=== PATIENT | female | born 1930 | race Caucasian/White ===

== ENCOUNTER 2020-01-15 22:04 | Inpatient (IN) ==
--- OUTSIDE RECORDS SUMMARY | 2020-01-15 22:06 | External Medical Summary | Continuity of Care Document ---
:1930 Author Name Evelin Cortes, Provider Address Unavailable Unavailable , Care Team Providers Name Role Phone NonMNPG Sophia, Provider Unavailable [email or web address] Unavailable Unavailable Unavailable Unavailable Problems Active medical history not documented Allergies and Adverse Reactions Allergy history not documented Medications Medications not documented Procedures Procedures not documented Immunizations Immunizations not documented Plan of Treatment Planned Observations Planned Goals not documented Results No Known Results Results not documented
[2020-01-15] MEDS ORDERED: SODIUM CHLORIDE 0.9% 500 ML IV ONE (22:21)
--- NOTE | 2020-01-15 22:52 | XRay Report ---
XR chest 1V portable CLINICAL HISTORY: Sepsis. COMPARISON STUDY: No previous studies for comparison. FINDINGS: Patient is mildly rotated. Lung volumes are normal. Lungs are clear. There is no pneumothor ax or pleural effusion. Moderate cardiomegaly is noted. Mediastinal contours are normal. There is no evidence for pulmonary edema. IMPRESSION: 1. No acute cardiopulmonary findings. 2. Moderate cardiomegaly. ACT 112: Negative or not required by law. Electronically signed by: Josse Plummer M.D. 01/15/2020 10:51 PM
--- NOTE | 2020-01-15 23:03 | Emergency Department Note ---
History of Present Illness General Chief complaint: Altered Mental Status Time Seen by Provider: 01/15/20 22:15 Source: patient, RN notes reviewed and old records reviewed Mode of arrival: EMS Limitations: altered mental status History of Present Illness This patient comes in with an altered mental status. According to the [facility] transfer note, she has had change in mental mental status with increasing confusion and drop in the blood pressure. I am not sure what her baseline is. She is sleepy but does follow commands and says a word or 2. Apparently she has not slept for 2 days and has been paranoid that somebody to come take her away she denies any complaints. There is no been no reported fall or trauma or any COVID risk factors. No fever or chills or cough or chest pain or shortness of breath. Home Medications Home Medications Medication Instructions Recorded Confirmed Type Antacid 500 Mg Tab 500 mg PO QID PRN 01/15/20 01/15/20 History acetaminophen [Tylenol] 650 mg PO Q4 PRN 01/15/20 01/15/20 History amlodipine [Norvasc] 5 mg PO DAILY 01/15/20 01/15/20 History aspirin 81 mg PO DAILY 01/15/20 01/15/20 History atorvastatin 20 mg PO HS 01/15/20 01/15/20 History calcium carbonate [Tums] 400 mg PO Q6 PRN 01/15/20 01/15/20 History clonidine HCl [Catapres] 0.3 mg PO AMPM 01/15/20 01/15/20 History clopidogrel [Plavix] 75 mg PO DAILY 01/15/20 01/15/20 History diclofenac sodium 2 g TOPICAL QID 01/15/20 01/15/20 History donepezil 5 mg PO HS 01/15/20 01/15/20 History famotidine 20 mg PO DAILY 01/15/20 01/15/20 History ferrous sulfate 325 mg PO DAILY 01/15/20 01/15/20 History furosemide [Lasix] 40 mg PO DAILY 01/15/20 01/15/20 History isosorbide mononitrate 30 mg PO DAILY 01/15/20 01/15/20 History levothyroxine 75 mcg PO DAILY 01/15/20 01/15/20 History lisinopril 20 mg PO AMHS 01/15/20 01/15/20 History magnesium oxide 400 mg PO DAILY 01/15/20 01/15/20 History metolazone 2.5 mg PO WK 01/15/20 01/15/20 History metoprolol tartrate 25 mg PO HS 01/15/20 01/15/20 History metoprolol tartrate 50 mg PO QAM 01/15/20 01/15/20 History ondansetron HCl [Zofran] 4 mg PO Q6H PRN 01/15/20 01/15/20 History sennosides-docusate sodium 1 tab-cap PO BID 01/15/20 01/15/20 History [Senna-S] spironolactone 25 mg PO DAILY 01/15/20 01/15/20 History Allergies Allergy/AdvReac Type Severity Reaction Status Date / Time tramadol Allergy Unknown Verified 01/15/20 23:06 Past Med/Surg History Social History Feels Safe at Home: Yes Smoking Status: Unknown if ever smoked Immunizations: Reviewing the [facility] notes. 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 The patient is unable to give any further history Review of Systems Unobtainable due to cognitive status Physical Exam Vital Signs Vital Signs - 24 hr 01/15/20 22:22 01/15/20 22:31 01/15/20 23:00 Temperature 36.5 C Temperature Source Oral Pulse Rate 66 59 L Pulse Rate [Apical] 61 Pulse Rate from SpO2 Sensor 59 L Respiratory Rate 18 17 Blood Pressure 126/48 L 124/62 Blood Pressure [Right Arm] 124/62 Blood Pressure Mean 74 85 Blood Pressure Mean [Right Arm] 82 Pulse Oximetry 97 97 96 Oxygen Delivery Method Room Air Room Air Room Air Sepsis Recent Fever Within 48 Hours No Sepsis Action Taken by Nursing No Action Required 01/15/20 23:30 Temperature Temperature Source Pulse Rate 62 Pulse Rate [Apical] Pulse Rate from SpO2 Sensor Respiratory Rate 13 Blood Pressure 126/50 L Blood Pressure [Right Arm] Blood Pressure Mean 62 Blood Pressure Mean [Right Arm] Pulse Oximetry 99 Oxygen Delivery Method Room Air Sepsis Recent Fever Within 48 Hours Sepsis Action Taken by Nursing General: Well developed well nourished older female who appears in no acute distress, breathing comfortably on room air. Normal speech. She does say her name but does not know the date or where she is. She follows most commands but is minimally verbal. Speech is nonslurred HEENT: Normal cephalic atraumatic. Pupils are equal round and reactive to light. Extraocular movements are intact. Oropharynx is pink with moist mucous membranes. No swelling of the mouth lips or tongue. Neck: Supple with a midline trachea. No meningeal signs or stiffness, no JVD or bruits. No Stridor. Chest: Clear to auscultation bilaterally. No wheezes or rhonchi. No increased work of breathing. Heart: Regular rate and rhythm without murmurs or gallops. Abdomen: Soft nontender, nondistended without rebound guarding or rigidity. Extremities: No cyanosis clubbing or edema. No calf tenderness or assymetry Spine/Back. Non tender to palpation. No CVA tenderness Skin: Good turgor without rashes. Neurologic exam: Cranial nerves two through 12 are intact. Motor and sensation are intact and symmetrical throughout. Course Administered Medications Discontinued Medications Sodium Chloride (Nss) 500 mls @ 999 mls/hr IV .Q31M ONE Stop: 01/15/20 22:51 Last Infusion: 01/15/20 23:36 Dose: 0 mls/hr Documented by: [id number] Admin: 01/15/20 22:55 Dose: 999 mls/hr Documented by: [id number] Medical Decision Making Differential Diagnosis Differential diagnosis includes: Sepsis, intracranial process, stroke, electrolyte or metabolic abnormality, UTI, medication side effect, trauma, electrolyte or metabolic abnormality Medical Records Attestation: I reviewed the patient's medical records. Home Medications Current Medication List: was personally reviewed by me Laboratory Data Attestation: I reviewed the patient's lab results. Result diagrams: 01/15/20 22:57 01/15/20 22:57 Lab Results 01/15/20 01/15/20 01/15/20 Range/Units 00:16 22:57 22:57 WBC 10.92 H (4.8-10.8) K/uL RBC 3.14 L (4.2-5.4) M/uL Hgb 9.7 L (12.0-16.0) g/dL Hct 27.9 L (37-47) % MCV 88.9 (80-100) fL MCH 30.9 (25-34) pg MCHC 34.8 (32-36) g/dL RDW Std Deviation 40.8 (36.4-46.3) fL RDW Coeff of Alhaji 12.6 (11.5-14.5) % Plt Count 290 (130-400) K/uL MPV 9.3 (7.4-10.4) fL Immature Gran % (Auto) 0.4 % Neut % (Auto) 78.1 % Lymph % (Auto) 14.1 % Stephenson % (Auto) 5.7 % Eos % (Auto) 1.5 % Baso % (Auto) 0.2 % Reticulocyte % (Auto) 1.0 (0.5-2.0) % Immature Gran # (Auto) 0.04 H (0.00-0.02) K/uL Neut # (Auto) 8.54 H (1.4-6.5) K/uL Lymph # (Auto) 1.54 (1.2-3.4) K/uL Stephenson # (Auto) 0.62 H (0.11-0.59) K/uL Eos # (Auto) 0.16 (0-0.5) K/uL Baso # (Auto) 0.02 (0-0.2) K/uL Reticulocyte # 0.03 (0.02-0.10) 10^6/uL PT 10.5 (9.0-12.0) Seconds INR 1.0 (0.9-1.1) APTT 29.1 (21.0-31.0) Seconds PTT Ratio 1.0 Sodium (136-145) mmol/L Potassium (3.5-5.1) mmol/L Chloride (98-107) mmol/L Carbon Dioxide (21-32) mmol/L Anion Gap (3-11) BUN (7-18) mg/dl Creatinine (0.6-1.2) mg/dl Est Cr Clr Drug Dosing ml/min Est GFR ( Amer) Est GFR (Non-Af Amer) BUN/Creatinine Ratio (10-20) Glucose (70-99) mg/dl Lactate (0.4-2.0) mmol/L Calcium (8.5-10.1) mg/dl Magnesium (1.8-2.4) mg/dl Total Bilirubin (0.2-1) mg/dl AST (15-37) U/L ALT (12-78) U/L Alkaline Phosphatase (45-117) U/L Troponin I (0-0.045) ng/ml Total Protein (6.4-8.2) gm/dl Albumin (3.4-5.0) gm/dl Globulin (2.5-4.0) gm/dl Albumin/Globulin Ratio (0.9-2) Urine Color Urine Appearance (Clear) Urine pH (4.5-7.5) Ur Specific [place] (1.000-1.030) Urine Protein (Negative) Urine Glucose (UA) (Negative) Urine Ketones (Negative) Urine Blood (Negative) Urine Nitrite (Negative) Urine Bilirubin (Negative) Urine Urobilinogen (Negative) Ur Leukocyte Esterase (Negative) Urine WBC (Auto) (0-5) /hpf Urine RBC (Auto) (0-4) /hpf U Hyaline Cast (Auto) (0-5) /lpf U Epithel Cells (Auto) (0-5) /lpf Urine Bacteria (Auto) (Negative) Calcium Oxalate Crystal (None Prsent) Granular Casts (0) /lpf Urine Mucus (None Prsent) Urine Yeast 01/15/20 01/15/20 01/15/20 Range/Units 22:57 22:57 23:38 WBC (4.8-10.8) K/uL RBC (4.2-5.4) M/uL Hgb (12.0-16.0) g/dL Hct (37-47) % MCV (80-100) fL MCH (25-34) pg MCHC (32-36) g/dL RDW Std Deviation (36.4-46.3) fL RDW Coeff of Alhaji (11.5-14.5) % Plt Count (130-400) K/uL MPV (7.4-10.4) fL Immature Gran % (Auto) % Neut % (Auto) % Lymph % (Auto) % Stephenson % (Auto) % Eos % (Auto) % Baso % (Auto) % Reticulocyte % (Auto) (0.5-2.0) % Immature Gran # (Auto) (0.00-0.02) K/uL Neut # (Auto) (1.4-6.5) K/uL Lymph # (Auto) (1.2-3.4) K/uL Stephenson # (Auto) (0.11-0.59) K/uL Eos # (Auto) (0-0.5) K/uL Baso # (Auto) (0-0.2) K/uL Reticulocyte # (0.02-0.10) 10^6/uL PT (9.0-12.0) Seconds INR (0.9-1.1) APTT (21.0-31.0) Seconds PTT Ratio Sodium 132 L (136-145) mmol/L Potassium 4.5 (3.5-5.1) mmol/L Chloride 97 L (98-107) mmol/L Carbon Dioxide 26 (21-32) mmol/L Anion Gap 9.0 (3-11) BUN 101 H (7-18) mg/dl Creatinine 4.42 H (0.6-1.2) mg/dl Est Cr Clr Drug Dosing 7.4 ml/min Est GFR ( Amer) 9.7 Est GFR (Non-Af Amer) 8.4 BUN/Creatinine Ratio 22.8 H (10-20) Glucose 112 H (70-99) mg/dl Lactate 1.4 (0.4-2.0) mmol/L Calcium 8.8 (8.5-10.1) mg/dl Magnesium 3.2 H (1.8-2.4) mg/dl Total Bilirubin 0.4 (0.2-1) mg/dl AST 19 (15-37) U/L ALT 15 (12-78) U/L Alkaline Phosphatase 68 (45-117) U/L Troponin I 0.138 H* (0-0.045) ng/ml Total Protein 7.0 (6.4-8.2) gm/dl Albumin 3.5 (3.4-5.0) gm/dl Globulin 3.5 (2.5-4.0) gm/dl Albumin/Globulin Ratio 1.0 (0.9-2) Urine Color Dark Yellow Urine Appearance Cloudy A (Clear) Urine pH 5.0 (4.5-7.5) Ur Specific [place] 1.018 (1.000-1.030) Urine Protein Trace H (Negative) Urine Glucose (UA) Negative (Negative) Urine Ketones Trace H (Negative) Urine Blood Negative (Negative) Urine Nitrite Negative (Negative) Urine Bilirubin Negative (Negative) Urine Urobilinogen Negative (Negative) Ur Leukocyte Esterase 1+ H (Negative) Urine WBC (Auto) 5-10 H (0-5) /hpf Urine RBC (Auto) 0-4 (0-4) /hpf U Hyaline Cast (Auto) 10-30 H (0-5) /lpf U Epithel Cells (Auto) >30 H (0-5) /lpf Urine Bacteria (Auto) 1+ H (Negative) Calcium Oxalate Crystal Present A (None Prsent) Granular Casts 5-10 H (0) /lpf Urine Mucus Present A (None Prsent) Urine Yeast Not Reportable Imaging Data Attestation: I personally reviewed and interpreted this imaging study as follows: My Impression: Chest x-ray: No acute infiltrate, failure, pneumothorax seen Radiologist's Impression: CT of the head. No acute changes. Please refer to report ECG Data Attestation: I personally reviewed and interpreted this ECG as follows: Indication: + altered mental status Rate (beats per minute): 63 Rhythm: + normal sinus ECG Intervals/blocks: + Left bundle branch block and + Normal VA ECG [place]: + Left axis deviation ECG ST segments: + Nonspecific ST abnormalities ECG Findings: no PACs and no PVCs Comparison ECG Date: no prior available Blood Pressure Blood Pressure Findings: Normal blood pressure MDM Narrative This patient comes in as described above. She was placed on a playground monitor in room B4. She is here for treatment and evaluation of altered mental status/confusion. It is unclear what her baseline is. She has stable vital signs. IV access was established and a full sepsis work-up was done. Also did a CAT scan of her head urinalysis and culture EKG. Her EKG did shows normal sinus rhythm with a bundle branch block and there is no old one available for comparison. CAT scan of her head was unremarkable. EKG shows a left bundle branch block with no old EKG available for comparison. No definite ischemic changes. Troponin is mildly elevated 0.138. Patient denies any chest pain or shortness of breath and seems comfortable. She has no significant electrolyte or metabolic abnormality. Chest x-ray does not show any congestive heart failure pneumonia or pneumothorax. She has no elevation of lactic acid to sug gest sepsis. Her white count is mildly elevated. She is on multiple medications and this could be related to medication as well. Her urinalysis does not suggest a definite UTI but a culture is pending. I did attempt to call her daughter Lakshmi Day at [phone] but there is no answer. I did consult Dr. Rivas to see her in the ER for further treatment and evaluation. Continous cardiac monitoring: An order was placed for continuous cardiac monitoring due to the patient's altered mental status. She was noted to be in a normal sinus rhythm at 66, improved to rotation. She was kept on a playground monitor while she was here. Impression & Plan Altered mental status, Elevated troponin, Left bundle branch block (LBBB), Weakness Discharge Plan Visit Data Chief Complaint: Altered Mental Status ED Provider: Venkat Lewis Discharge Problem: Altered mental status, Elevated troponin, Left bundle branch block (LBBB), Weakness Forms Stand Alone Forms: [facility] Prescriptions Prescriptions: No Action Antacid 500 Mg Tab 500 mg PO QID PRN (Reason: Acid Reflux) RF: 0 furosemide [Lasix] 40 mg Tablet 40 mg PO DAILY RF: 0 metolazone 2.5 mg tablet 2.5 mg PO WK RF: 0 acetaminophen [Tylenol] 325 mg Tablet 650 mg PO Q4 PRN (Reason: Fever Or Pain) RF: 0 atorvastatin 20 mg Tablet 20 mg PO HS RF: 0 donepezil 5 mg Tablet 5 mg PO HS RF: 0 lisinopril 20 mg tablet 20 mg PO AMHS RF: 0 ondansetron HCl [Zofran] 4 mg Tablet 4 mg PO Q6H PRN (Reason: Nausea) RF: 0 isosorbide mononitrate 30 mg tablet extended release 24 hr 30 mg PO DAILY RF: 0 sennosides-docusate sodium [Senna-S] 8.6-50 mg Tablet 1 tab-cap PO BID RF: 0 clonidine HCl [Catapres] 0.3 mg tablet 0.3 mg PO AMPM RF: 0 clopidogrel [Plavix] 75 mg tablet 75 mg PO DAILY RF: 0 amlodipine [Norvasc] 5 mg tablet 5 mg PO DAILY RF: 0 spironolactone 25 mg Tablet 25 mg PO DAILY RF: 0 levothyroxine 75 mcg tablet 75 mcg PO DAILY RF: 0 famotidine 20 mg Tablet 20 mg PO DAILY RF: 0 calcium carbonate [Tums] 200 mg calcium (500 mg) Tablet,Chewable 400 mg PO Q6 PRN (Reason: Heartburn) RF: 0 metoprolol tartrate 50 mg tablet 50 mg PO QAM RF: 0 aspirin 81 mg tablet,chewable 81 mg PO DAILY RF: 0 ferrous sulfate 325 mg (65 mg iron) tablet,delayed release (DR/EC) 325 mg PO DAILY RF: 0 metoprolol tartrate 25 mg tablet 25 mg PO HS RF: 0 diclofenac sodium 1 % gel 2 g TOPICAL QID RF: 0 magnesium oxide 400 mg magnesium Tablet 400 mg PO DAILY RF: 0 Discharge Problem: Altered mental status Qualifiers: Altered mental status type: unspecified Qualified Code(s): R41.82 - Altered mental status, unspecified
[2020-01-15 23:13] LABS: Basophils # (auto) 0.02 K/uL (0-0.2); Basophils % (auto) 0.2 %; Eosinophils # (auto) 0.16 K/uL (0-0.5); Eosinophils % (auto) 1.5 %; Hematocrit (blood only) 27.9 % (37-47); Hemoglobin 9.7 g/dL (12.0-16.0); Immature Granulocytes # (auto) 0.04 K/uL (0.00-0.02); Immature Granulocytes % (auto) 0.4 %; Lymphocytes # (auto) 1.54 K/uL (1.2-3.4); Lymphocytes % (auto) 14.1 %; Mean Corpuscular Hemoglobin 30.9 pg (25-34); Mean Corpuscular Hgb Conc 34.8 g/dL (32-36); Mean Corpuscular Volume 88.9 fL (80-100); Mean Platelet Volume 9.3 fL (7.4-10.4); Monocytes # (auto) 0.62 K/uL (0.11-0.59); Monocytes % (auto) 5.7 %; Neutrophils # (auto) 8.54 K/uL (1.4-6.5); Neutrophils % (auto) 78.1 %; Platelet Count 290 K/uL (130-400); RDW Coefficient of Variation 12.6 % (11.5-14.5); RDW Standard Deviation 40.8 fL (36.4-46.3); Red Blood Count 3.14 M/uL (4.2-5.4); White Blood Count 10.92 K/uL (4.8-10.8)
[2020-01-15 23:21] LABS: Partial Thromboplastin Time 29.1 Seconds (21.0-31.0); Prothrombin Time 10.5 Seconds (9.0-12.0)
[2020-01-15 23:25] LABS: Albumin Level 3.5 gm/dl (3.4-5.0); BUN Creatinine Ratio 22.8 (10-20); Calcium 8.8 mg/dl (8.5-10.1); Creatinine Clr Calc Pharmacy 7.4 ml/min; Est GFR (African American) 9.7; Est GFR (Non-African American) 8.4; Magnesium 3.2 mg/dl (1.8-2.4); Potassium 4.5 mmol/L (3.5-5.1)
[2020-01-15 23:36] LABS: Bilirubin,Total 0.4 mg/dl (0.2-1); Globulin 3.5 gm/dl (2.5-4.0); Troponin I 0.138 ng/ml (0-0.045)
[2020-01-15 23:51] LABS: Appearance Urine Cloudy (Clear); Bilirubin Urine Negative (Negative); Blood Urine Negative (Negative); Color Urine Dark Yellow; Epithelial Cell Urine Auto >30 /lpf (0-5); Glucose Urine UA Negative (Negative); Ketones Urine Trace (Negative); Leukocyte Esterase Urine 1+ (Negative); Nitrite Urine Negative (Negative); Protein Urine Trace (Negative); RBC Urine Automated 0-4 /hpf (0-4); Specific Gravity Urine 1.018 (1.000-1.030); Urobilinogen Urine Negative (Negative)
[2020-01-16 00:14] LABS: Reticulocytes # 0.03 10^6/uL (0.02-0.10)
[2020-01-16 00:16] LABS: Mucus Urine Present (None Prsent)
[2020-01-16 00:18] LABS: Bacteria Urine Automated 1+ (Negative); Calcium Oxalate Crystals Urine Present (None Prsent)
[2020-01-16] MEDS ORDERED: SODIUM CHLORIDE 0.9% 1000ML 1,000 ML IV ONE (00:24)
[2020-01-16 00:51] LABS: BUN Creatinine Ratio 23.1 (10-20); Calcium 8.4 mg/dl (8.5-10.1); Creatinine Clr Calc Pharmacy 7.7 ml/min; Est GFR (African American) 10.1; Est GFR (Non-African American) 8.7; Potassium 4.3 mmol/L (3.5-5.1)
[2020-01-16 01:07] LABS: Folate (Folic Acid) 13.44 ng/ml (>5.38)
[2020-01-16 01:11] LABS: Ferritin 65.1 ng/ml (8-388); Thyroid Stimulating Hormone 0.351 uIu/ml (0.300-4.500); Troponin I 0.137 ng/ml (0-0.045)
[2020-01-16] MEDS ORDERED: CEFEPIME 2,000 MG/20 ML VIAL IV STA (01:13)
--- NOTE | 2020-01-16 01:16 | History & Physical Report ---
Date of Service January 16, 2020 Assessment & Plan (1) Encephalopathy: Delirium on dementia Multifactorial : Complicated UTI, no sepsis for now, rule out obstructive uropathy Possible uremia, ARF on CRI Troponin elevation in the setting of worsening kidney dysfunction chronic diastolic HF as per records, patient on the dry side hx CAD status post stent chronic LBBB history CVA as per records HTN, BP currently stable chronic anemia, current hemoglobin within range of 2 disparate lab results drawn this month hypothyroidism, euthyroid as of today's TSH Hyperglycemia likely prediabetes, hemoglobin A1c of 6.24 December 2019 Medical telemetry Follow urine cultures, IV Cefepime for now CT abdomen pelvis RE complicated UTI, ARF on CRI Monitor creatinine response to IVF, continue to hold home diuretics, ALON inhibitor Nephrology consult, ARF on CKD Anemia work-up DVT prophylaxis. Heparin subcu if no bleed on CT abdomen pelvis DNR as per prior directives as per half-way staff. Attempted to contact patient's daughter/POA (Ms. Kenna Marcum, contact #[phone] 10/30 [id number]) to update her of plan of care. No answer. Left voice message for call back. Text document was generated using [email or web address] voice recognition software. It may contain grammatical or spelling errors. Kindly contact undersigned for clarification of any documentation item in question. History of Present Illness Chief Complaint: Mental status change as per records Primary Care Provider: Dr. Loredo History obtained from patient, ER provider, half-way staff, and records. Limited history from patient secondary to encephalopathy. Medical history significant for chronic diastolic HF as per records, CAD status post stent , chronic LBBB, history CVA as per records, HTN, CRI (baseline creatinine 2.6 as of 12/22/2019), chronic anemia (baseline hemoglobin 8-11 12/2019), dementia, hypothyroidism, hx parotid tumor Patient noted to have change in mentation over the last few days. Report of visual hallucinations that "someone was out to get her." Outpatient chemistry from 01/13 showed serum sodium 131, serum creatinine noted to be 3.5. No UTI on outpatient urine dipstick as per records. Diuretics, ALON inhibitor, spironolactone held . No dialysis as per discussion between half-way provider and patient's family. Last night patient noted to have decreased responsiveness, not talking as much with SBP 80s. Patient brought to the ER by EMS for evaluation. Patient unable to answer questions regarding chest pain, cough, S OB, abdominal pain, dysuria symptoms. Medical History as above Surgical History : Appendectomy, cholecystectomy, Family History : Could not be obtained Personal/Social history : [facility] resident Allergies Allergy/AdvReac Type Severity Reaction Status Date / Time tramadol Allergy Unknown Verified 01/15/20 23:06 Home Medications Home Medications Medication Instructions Recorded Confirmed Type Antacid 500 Mg Tab 500 mg PO QID PRN 01/15/20 01/15/20 History acetaminophen [Tylenol] 650 mg PO Q4 PRN 01/15/20 01/15/20 History amlodipine [Norvasc] 5 mg PO DAILY 01/15/20 01/15/20 History aspirin 81 mg PO DAILY 01/15/20 01/15/20 History atorvastatin 20 mg PO HS 01/15/20 01/15/20 History calcium carbonate [Tums] 400 mg PO Q6 PRN 01/15/20 01/15/20 History clonidine HCl [Catapres] 0.3 mg PO AMPM 01/15/20 01/15/20 History clopidogrel [Plavix] 75 mg PO DAILY 01/15/20 01/15/20 History diclofenac sodium 2 g TOPICAL QID 01/15/20 01/15/20 History donepezil 5 mg PO HS 01/15/20 01/15/20 History famotidine 20 mg PO DAILY 01/15/20 01/15/20 History ferrous sulfate 325 mg PO DAILY 01/15/20 01/15/20 History furosemide [Lasix] 40 mg PO DAILY 01/15/20 01/15/20 History isosorbide mononitrate 30 mg PO DAILY 01/15/20 01/15/20 History levothyroxine 75 mcg PO DAILY 01/15/20 01/15/20 History lisinopril 20 mg PO AMHS 01/15/20 01/15/20 History magnesium oxide 400 mg PO DAILY 01/15/20 01/15/20 History metolazone 2.5 mg PO WK 01/15/20 01/15/20 History metoprolol tartrate 25 mg PO HS 01/15/20 01/15/20 History metoprolol tartrate 50 mg PO QAM 01/15/20 01/15/20 History ondansetron HCl [Zofran] 4 mg PO Q6H PRN 01/15/20 01/15/20 History sennosides-docusate sodium 1 tab-cap PO BID 01/15/20 01/15/20 History [Senna-S] spironolactone 25 mg PO DAILY 01/15/20 01/15/20 History Past Med/Surg History Social History Feels Safe at Home: Yes Smoking Status: Unknown if ever smoked Review of Systems Review of Systems: As per HPI, all 10 systems reviewed, all other ROS negative Physical Exam Physical Exam: GENERAL: Lethargic, no respiratory distress SKIN: Pallor , warm HEENT: pale palpebral conjunctivae, no ptosis, dry buccal mucosa NECK : Supple, no tenderness CHEST : Decreased breath sounds, no tenderness HEART : Bradycardic, no obvious murmurs ABDOMEN: Some distention, nontender EXTREMITIES : Minimal LE swelling, no LE tenderness, no other conspicuous deformities noted NEUROLOGIC : Lethargic, no facial asymmetry, gait and stance not assessed Results & Data Results & Data ([facility]) Vital Signs (Past 12 Hours) Vital Signs Temp Pulse Pulse Resp BP BP Pulse Ox 01/15/20 23:30 62 13 126/50 L 99 01/15/20 23:00 59 L 61 17 124/62 124/62 96 01/15/20 22:31 97 01/15/20 22:22 36.5 C 66 18 126/48 L 97 Laboratory Results Laboratory Results WBC 10.92 K/uL (4.8-10.8) H 01/15/20 22:57 RBC 3.14 M/uL (4.2-5.4) L 01/15/20 22:57 Hgb 9.7 g/dL (12.0-16.0) L 01/15/20 22:57 Hct 27.9 % (37-47) L 01/15/20 22:57 MCV 88.9 fL (80-100) 01/15/20 22:57 MCH 30.9 pg (25-34) 01/15/20 22:57 MCHC 34.8 g/dL (32-36) 01/15/20 22:57 RDW Std Deviation 40.8 fL (36.4-46.3) 01/15/20 22:57 RDW Coeff of Alhaji 12.6 % (11.5-14.5) 01/15/20 22:57 Plt Count 290 K/uL (130-400) 01/15/20 22:57 MPV 9.3 fL (7.4-10.4) 01/15/20 22:57 Immature Gran % (Auto) 0.4 % 01/15/20 22:57 Neut % (Auto) 78.1 % 01/15/20 22:57 Lymph % (Auto) 14.1 % 01/15/20 22:57 [place] % (Auto) 5.7 % 01/15/20:57 Eos % (Auto) 1.5 % 01/15/20:57 Baso % (Auto) 0.2 % 01/15/20: Reticulocyte % (Auto) 1.0 % (0.5-2.0) 01/15/20 00:16 Immature Gran # (Auto) 0.04 K/uL (0.00-0.02) H 01/15/20 22:57 Neut # (Auto) 8.54 K/uL (1.4-6.5) H 01/15/20 22:57 Lymph # (Auto) 1.54 K/uL (1.2-3.4) 01/15/20 22:57 [place] # (Auto) 0.62 K/uL (0.11-0.59) H 01/15/20 22:57 Eos # (Auto) 0.16 K/uL (0-0.5) 01/15/20:57 Baso # (Auto) 0.02 K/uL (0-0.2) 01/15/20:57 Reticulocyte # 0.03 10^6/uL (0.02-0.10) 01/15/20 00:16 PT 10.5 Seconds (9.0-12.0) 01/15/20 22:57 INR 1.0 (0.9-1.1) 01/15/20 22:57 APTT 29.1 Seconds (21.0-31.0) 01/15/20 22:57 PTT Ratio 1.0 01/15/20:57 Sodium 133 mmol/L (136-145) L 01/16/20 00:16 Potassium 4.3 mmol/L (3.5-5.1) 01/16/20 00:16 Chloride 99 mmol/L (98-107) 01/16/20 00:16 Carbon Dioxide 25 mmol/L (21-32) 01/16/20 00:16 Anion Gap 9.0 (3-11) 01/16/20 00:16 BUN 99 mg/dl (7-18) H 01/16/20 00:16 Creatinine 4.28 mg/dl (0.6-1.2) H 01/16/20 00:16 Est Cr Clr Drug Dosing 7.7 ml/min 01/16/20 00:16 Est GFR ( Amer) 10.1 01/16/20 00:16 Est GFR (Non-Af Amer) 8.7 01/16/20 00:16 BUN/Creatinine Ratio 23.1 (10-20) H 01/16/20 00:16 Glucose 123 mg/dl (70-99) H 01/16/20 00:16 Lactate 1.4 mmol/L (0.4-2.0) 01/15/20 22:57 Calcium 8.4 mg/dl (8.5-10.1) L 01/16/20 00:16 Magnesium 3.2 mg/dl (1.8-2.4) H 01/15/20 22:57 Iron 40 mcg/dl (35-150) 01/16/20 00:16 TIBC 252 mcg/dl (250-450) 01/16/20 00:16 Transferrin 215 mg/dl (200-360) 01/16/20 00:16 Ferritin 65.1 ng/ml (8-388) 01/16/20 00:16 Total Bilirubin 0.4 mg/dl (0.2-1) 01/15/20 22:57 AST 19 U/L (15-37) 01/15/20 22:57 ALT 15 U/L (12-78) 01/15/20 22:57 Alkaline Phosphatase 68 U/L (45-117) 01/15/20 22:57 Ammonia < 10.0 umol/L (11-32) L 01/16/20 00:16 Troponin I 0.137 ng/ml (0-0.045) H* 01/16/20 00:16 Total Protein 7.0 gm/dl (6.4-8.2) 01/15/20 22:57 Albumin 3.5 gm/dl (3.4-5.0) 01/15/20 22:57 Globulin 3.5 gm/dl (2.5-4.0) 01/15/20 22:57 Albumin/Globulin Ratio 1.0 (0.9-2) 01/15/20 22:57 Vitamin B12 606 pg/ml (211-911) 01/16/20 00:16 Folate 13.44 ng/ml (>5.38) 01/16/20 00:16 TSH 0.351 uIu/ml (0.300-4.500) 01/16/20 00:16 Urine Color Dark Yellow 01/15/20 23:38 Urine Appearance Cloudy (Clear) A 01/15/20 23:38 Urine pH 5.0 (4.5-7.5) 01/15/20 23:38 Ur Specific [place] 1.018 (1.000-1.030) 01/15/20 23:38 Urine Protein Trace (Negative) H 01/15/20 23:38 Urine Glucose (UA) Negative (Negative) 01/15/20 23:38 Urine Ketones Trace (Negative) H 01/15/20 23:38 Urine Blood Negative (Negative) 01/15/20 23:38 Urine Nitrite Negative (Negative) 01/15/20 23:38 Urine Bilirubin Negative (Negative) 01/15/20 23:38 Urine Urobilinogen Negative (Negative) 01/15/20 23:38 Ur Leukocyte Esterase 1+ (Negative) H 01/15/20 23:38 Urine WBC (Auto) 5-10 /hpf (0-5) H 01/15/20 23:38 Urine RBC (Auto) 0-4 /hpf (0-4) 01/15/20 23:38 U Hyaline Cast (Auto) 10-30 /lpf (0-5) H 01/15/20 23:38 U Epithel Cells (Auto) >30 /lpf (0-5) H 01/15/20 23:38 Urine Bacteria (Auto) 1+ (Negative) H 01/15/20 23:38 Calcium Oxalate Crystal Present (None Prsent) A 01/15/20 23:38 Granular Casts 5-10 /lpf (0) H 04/25/20 23:38 Urine Mucus Present (None Prsent) A 01/15/20 23:38 Urine Yeast Not Reportable 01/15/20 23:[address] head initial read: Involutional and chronic small vessel ischemic changes. No ICH, mass-effect, or edema or skull fracture. Chest x-ray : 1. No acute cardiopulmonary findings. 2. Moderate cardiomegaly. EKG as per my interpretation : Rate 65, NSR, LAD, LAFB, LBBB (chronic)
[2020-01-16] MEDS ORDERED: cefTRIAXone SODIUM 2000MG/70ML D5W IV ONE (01:19)
[2020-01-16] MEDS ORDERED: PROMETHAZINE HCL 12.5 MG in SODIUM CHLORIDE 0.9% 50 ML IV PRN (02:56)
[2020-01-16] MEDS ORDERED: ACETAMINOPHEN 325 MG TAB PO PRN (02:56)
[2020-01-16] MEDS ORDERED: NITROGLYCERIN SL 0.4 MG/TAB TAB SL PRN (02:56)
[2020-01-16] MEDS ORDERED: CEFEPIME CONSULT ACTIVE PRN (03:58)
[2020-01-16] MEDS: HEPARIN SOD 5,000 UNIT/0.5 ML VIAL SQ SCH ×3 (05:53→21:02)
[2020-01-16] MEDS: LEVOTHYROXINE SODIUM 75 MCG TABLET PO SCH (05:54)
--- NOTE | 2020-01-16 05:55 | CT Scan Report ---
CT head/brain wo con CT DOSE: 1074.96 mGy.cm HISTORY: Mental status change eval for altered loc TECHNIQUE: Multiaxial CT images of the head were performed without the use of intravenous contrast. A dose lowering technique was utilized adhering to the principles of ALARA. Comparison: None. Findings: The paranasal sinuses and mastoid air cells are clear. The calvarium and skull base are int act. The ventricles and sulci are within normal limits. There is no mass, hematoma, midline shift, or acute infarct. Impression: No acute intracranial abnormality. Age-related atrophy and chronic small vessel change. ACT 112: Negative or not required by law. The above report was generated using voice recognition software. It may contain grammatical, syntax or spelling errors. Electronically signed by: Kyle Gonzalez M.D. 01/16/2020 5:54 AM
--- NOTE | 2020-01-16 06:14 | CT Scan Report ---
CT abd pelvis wo con CT DOSE: 321.58 mGy.cm HISTORY: abd discomfrt TECHNIQUE: Multiaxial CT images of the abdomen and pelvis were performed without contrast. A dose lo wering technique was utilized adhering to the principles of ALARA. COMPARISON STUDY: None. FINDINGS: Mild bibasilar atelectasis. Moderate cardiomegaly. Liver spleen and pancreas are unremarkab le. Prior cholecystectomy. Bilateral renal cysts. No evidence for renal hydronephrosis. Nonobstructive bowel pattern. Bladder is midline. Moderate degenerative change lumbar spine. IMPRESSION: No acute process in the abdomen or pelvis. Cardiomegaly. Prior cholecystectomy. ACT 112: Negative or not required by law. The above report was generated using voice recognition software. It may contain grammatical, syntax or spelling errors. Electronically signed by: Kyle Gonzalez M.D. 01/16/2020 6:12 AM
[2020-01-16 06:19] LABS: Basophils # (auto) 0.03 K/uL (0-0.2); Basophils % (auto) 0.3 %; Eosinophils # (auto) 0.31 K/uL (0-0.5); Hematocrit (blood only) 25.6 % (37-47); Hemoglobin 8.6 g/dL (12.0-16.0); Immature Granulocytes # (auto) 0.04 K/uL (0.00-0.02); Immature Granulocytes % (auto) 0.4 %; Lymphocytes # (auto) 1.99 K/uL (1.2-3.4); Lymphocytes % (auto) 19.6 %; Mean Corpuscular Hgb Conc 33.6 g/dL (32-36); Mean Corpuscular Volume 89.2 fL (80-100); Mean Platelet Volume 8.6 fL (7.4-10.4); Monocytes # (auto) 0.74 K/uL (0.11-0.59); Monocytes % (auto) 7.3 %; Neutrophils # (auto) 7.06 K/uL (1.4-6.5); Neutrophils % (auto) 69.4 %; Platelet Count 224 K/uL (130-400); RDW Coefficient of Variation 12.6 % (11.5-14.5); RDW Standard Deviation 41.2 fL (36.4-46.3); Red Blood Count 2.87 M/uL (4.2-5.4); White Blood Count 10.17 K/uL (4.8-10.8)
[2020-01-16 06:40] LABS: BUN Creatinine Ratio 25.9 (10-20); Calcium 8.4 mg/dl (8.5-10.1); Creatinine Clr Calc Pharmacy 8.4 ml/min; Est GFR (African American) 11.3; Est GFR (Non-African American) 9.8
[2020-01-16] MEDS: SODIUM CHLORIDE 0.9% 1000ML 1,000 ML IV SCH ×2 (07:48→19:43)
[2020-01-16] MEDS: ISOSORBIDE MONO EXTENDED REL 30 MG TABCR PO SCH (07:50)
[2020-01-16] MEDS: METOPROLOL TARTRATE 50 MG TAB PO SCH ×2 (07:50→21:00)
[2020-01-16] MEDS: FAMOTIDINE 20 MG TAB PO SCH (07:50)
[2020-01-16] MEDS: AMLODIPINE BESYLATE 5 MG TAB PO SCH (07:51)
[2020-01-16] MEDS: CLOPIDOGREL BISULFATE 75 MG TAB PO SCH (07:51)
[2020-01-16] MEDS: FERROUS SULFATE 325 MG TAB PO SCH (07:51)
[2020-01-16] MEDS: ASPIRIN 81 MG ECTAB PO SCH (07:51)
[2020-01-16] MEDS: DOCUSATE SODIUM/SENNA 50/8.6MG TAB PO SCH ×2 (07:51→21:03)
--- NOTE | 2020-01-16 08:30 | Hospitalist Progress Note ---
Date of Service January 16, 2020 Assessment & Plan Admission and Anticipated Discharge Date Admission Date: January 16, 2020 Subjective Patient admitted overnight, examined by me in room 277. She is lying in bed, c stephen, in no acute distress. She is able to tell me her name and that she has a daughter called Lakshmi which is correct. She seems to know that she is in the hospital but she cannot tell me which 1. She denies any fevers, chills, chest pain, shortness of breath, abdominal pain, nausea or vomiting. She is otherwise quite quiet. Lungs are clear to auscultation bilaterally, heart sounds regular, abdomen soft, nontender, nondistended. Nephrology consulted, patient is currently receiving IV fluids, 80 mils per hour, and cefepime for presumable UTI I contacted patient's daughter Lakshmi, and updated her on pt's clinical status. Told her that patient was able to tell me her name and her daughter's name. Lakshmi told me that yesterday her mom was very confused, she did not recognize her daughter and said some strange things about going to correction, also was asking about a friend Dimitrios, who is supposedly since 2005. I encouraged Lakshmi to call her mom on the phone at the bedside, and reassure her about her current environment as it can be confusing for elderly anyhow. Given very limited visitations this can be difficult for elderly patients who are confused even prior to coming to the hospital. Lakshmi understands and plans to keep in touch with her mother. I also confirmed with Lakshmi that they do not wish to proceed with dialysis despite worsening kidney function. She says that they did have a conversation with landfill grader about this and they do not want to proceed with dialysis. Results & Data Results & Data ([facility]) Vital Signs (Past 12 Hours) Vital Signs Temp Pulse Pulse Pulse Resp BP BP 01/16/20 08:00 58 L 01/16/20 07:25 36.7 C 60 20 131/58 L 01/16/20 04:18 36.6 C 56 L 18 131/70 01/16/20 03:00 36.8 C 66 61 20 01/16/20 01:45 57 L 15 115/45 L 01/16/20 01:30 57 L 13 98/42 L 01/16/20 01:15 55 L 16 122/42 L 01/16/20 00:45 56 L 14 110/40 L 01/16/20 00:30 58 L 15 124/44 L 01/15/20 23:45 57 L 15 109/40 L 01/15/20 23:30 62 13 126/50 L 01/15/20 23:00 59 L 61 17 124/62 01/15/20 22:31 01/15/20 22:22 36.5 C 66 18 126/48 L BP Pulse Ox 01/16/20 08:00 01/16/20 07:25 96 01/16/20 04:18 100 01/16/20 03:00 147/65 H 100 01/16/20 01:45 01/16/20 01:30 01/16/20 01:15 98 01/16/20 00:45 99 01/16/20 00:30 99 01/15/20 23:45 98 01/15/20 23:30 99 01/15/20 23:00 124/62 96 01/15/20 22:31 97 01/15/20 22:22 97 Laboratory Results 01/16/20 01/16/20 01/16/20 Range/Units 05:52 05:52 05:50 WBC 10.17 (4.8-10.8) K/uL RBC 2.87 L (4.2-5.4) M/uL Hgb 8.6 L (12.0-16.0) g/dL Hct 25.6 L (37-47) % MCV 89.2 (80-100) fL MCH 30.0 (25-34) pg MCHC 33.6 (32-36) g/dL RDW Std Deviation 41.2 (36.4-46.3) fL RDW Coeff of Alhaji 12.6 (11.5-14.5) % Plt Count 224 (130-400) K/uL MPV 8.6 (7.4-10.4) fL Immature Gran % (Auto) 0.4 % Neut % (Auto) 69.4 % Lymph % (Auto) 19.6 % Mckenzie % (Auto) 7.3 % Eos % (Auto) 3.0 % Baso % (Auto) 0.3 % Reticulocyte % (Auto) (0.5-2.0) % Immature Gran # (Auto) 0.04 H (0.00-0.02) K/uL Neut # (Auto) 7.06 H (1.4-6.5) K/uL Lymph # (Auto) 1.99 (1.2-3.4) K/uL Mckenzie # (Auto) 0.74 H (0.11-0.59) K/uL Eos # (Auto) 0.31 (0-0.5) K/uL Baso # (Auto) 0.03 (0-0.2) K/uL Reticulocyte # (0.02-0.10) 10^6/uL PT (9.0-12.0) Seconds INR (0.9-1.1) APTT (21.0-31.0) Seconds PTT Ratio Sodium 135 L (136-145) mmol/L Potassium 4.0 (3.5-5.1) mmol/L Chloride 103 (98-107) mmol/L Carbon Dioxide 25 (21-32) mmol/L Anion Gap 7.0 (3-11) BUN 101 H (7-18) mg/dl Creatinine 3.90 H D (0.6-1.2) mg/dl Est Cr Clr Drug Dosing 8.4 ml/min Est GFR ( Amer) 11.3 Est GFR (Non-Af Amer) 9.8 BUN/Creatinine Ratio 25.9 H (10-20) Glucose 104 H (70-99) mg/dl Lactate (0.4-2.0) mmol/L Calcium 8.4 L (8.5-10.1) mg/dl Magnesium (1.8-2.4) mg/dl Iron (35-150) mcg/dl TIBC (250-450) mcg/dl Transferrin (200-360) mg/dl Ferritin (8-388) ng/ml Total Bilirubin (0.2-1) mg/dl AST (15-37) U/L ALT (12-78) U/L Alkaline Phosphatase (45-117) U/L Ammonia (11-32) umol/L Troponin I (0-0.045) ng/ml Total Protein (6.4-8.2) gm/dl Albumin (3.4-5.0) gm/dl Globulin (2.5-4.0) gm/dl Albumin/Globulin Ratio (0.9-2) Vitamin B12 (211-911) pg/ml Folate (>5.38) ng/ml TSH (0.300-4.500) uIu/ml Urine Color Urine Appearance (Clear) Urine pH (4.5-7.5) Ur Specific [place] (1.000-1.030) Urine Protein (Negative) Urine Glucose (UA) (Negative) Urine Ketones (Negative) Urine Blood (Negative) Urine Nitrite (Negative) Urine Bilirubin (Negative) Urine Urobilinogen (Negative) Ur Leukocyte Esterase (Negative) Urine WBC (Auto) (0-5) /hpf Urine RBC (Auto) (0-4) /hpf U Hyaline Cast (Auto) (0-5) /lpf U Epithel Cells (Auto) (0-5) /lpf Urine Bacteria (Auto) (Negative) Calcium Oxalate Crystal (None Prsent) Granular Casts (0) /lpf Urine Mucus (None Prsent) Urine Yeast Nasal Screen MRSA (PCR) Negative (Negative) Blood Type Antibody Screen 01/16/20 01/16/20 01/16/20 Range/Units 00:16 00:16 00:16 WBC (4.8-10.8) K/uL RBC (4.2-5.4) M/uL Hgb (12.0-16.0) g/dL Hct (37-47) % MCV (80-100) fL MCH (25-34) pg MCHC (32-36) g/dL RDW Std Deviation (36.4-46.3) fL RDW Coeff of Alhaji (11.5-14.5) % Plt Count (130-400) K/uL MPV (7.4-10.4) fL Immature Gran % (Auto) % Neut % (Auto) % Lymph % (Auto) % Mckenzie % (Auto) % Eos % (Auto) % Baso % (Auto) % Reticulocyte % (Auto) (0.5-2.0) % Immature Gran # (Auto) (0.00-0.02) K/uL Neut # (Auto) (1.4-6.5) K/uL Lymph # (Auto) (1.2-3.4) K/uL Mckenzie # (Auto) (0.11-0.59) K/uL Eos # (Auto) (0-0.5) K/uL Baso # (Auto) (0-0.2) K/uL Reticulocyte # (0.02-0.10) 10^6/uL PT (9.0-12.0) Seconds INR (0.9-1.1) APTT (21.0-31.0) Seconds PTT Ratio Sodium (136-145) mmol/L Potassium (3.5-5.1) mmol/L Chloride (98-107) mmol/L Carbon Dioxide (21-32) mmol/L Anion Gap (3-11) BUN (7-18) mg/dl Creatinine (0.6-1.2) mg/dl Est Cr Clr Drug Dosing ml/min Est GFR ( Amer) Est GFR (Non-Af Amer) BUN/Creatinine Ratio (10-20) Glucose (70-99) mg/dl Lactate (0.4-2.0) mmol/L Calcium (8.5-10.1) mg/dl Magnesium (1.8-2.4) mg/dl Iron (35-150) mcg/dl TIBC (250-450) mcg/dl Transferrin (200-360) mg/dl Ferritin (8-388) ng/ml Total Bilirubin (0.2-1) mg/dl AST (15-37) U/L ALT (12-78) U/L Alkaline Phosphatase (45-117) U/L Ammonia < 10.0 L (11-32) umol/L Troponin I (0-0.045) ng/ml Total Protein (6.4-8.2) gm/dl Albumin (3.4-5.0) gm/dl Globulin (2.5-4.0) gm/dl Albumin/Globulin Ratio (0.9-2) Vitamin B12 606 (211-911) pg/ml Folate 13.44 (>5.38) ng/ml TSH (0.300-4.500) uIu/ml Urine Color Urine Appearance (Clear) Urine pH (4.5-7.5) Ur Specific [place] (1.000-1.030) Urine Protein (Negative) Urine Glucose (UA) (Negative) Urine Ketones (Negative) Urine Blood (Negative) Urine Nitrite (Negative) Urine Bilirubin (Negative) Urine Urobilinogen (Negative) Ur Leukocyte Esterase (Negative) Urine WBC (Auto) (0-5) /hpf Urine RBC (Auto) (0-4) /hpf U Hyaline Cast (Auto) (0-5) /lpf U Epithel Cells (Auto) (0-5) /lpf Urine Bacteria (Auto) (Negative) Calcium Oxalate Crystal (None Prsent) Granular Casts (0) /lpf Urine Mucus (None Prsent) Urine Yeast Nasal Screen MRSA (PCR) (Negative) Blood Type A Positive Antibody Screen NEGATIVE 01/16/20 01/15/20 01/15/20 Range/Units 00:16 23:38 22:57 WBC (4.8-10.8) K/uL RBC (4.2-5.4) M/uL Hgb (12.0-16.0) g/dL Hct (37-47) % MCV (80-100) fL MCH (25-34) pg MCHC (32-36) g/dL RDW Std Deviation (36.4-46.3) fL RDW Coeff of Alhaji (11.5-14.5) % Plt Count (130-400) K/uL MPV (7.4-10.4) fL Immature Gran % (Auto) % Neut % (Auto) % Lymph % (Auto) % Mckenzie % (Auto) % Eos % (Auto) % Baso % (Auto) % Reticulocyte % (Auto) (0.5-2.0) % Immature Gran # (Auto) (0.00-0.02) K/uL Neut # (Auto) (1.4-6.5) K/uL Lymph # (Auto) (1.2-3.4) K/uL Mckenzie # (Auto) (0.11-0.59) K/uL Eos # (Auto) (0-0.5) K/uL Baso # (Auto) (0-0.2) K/uL Reticulocyte # (0.02-0.10) 10^6/uL PT (9.0-12.0) Seconds INR (0.9-1.1) APTT (21.0-31.0) Seconds PTT Ratio Sodium 133 L (136-145) mmol/L Potassium 4.3 (3.5-5.1) mmol/L Chloride 99 (98-107) mmol/L Carbon Dioxide 25 (21-32) mmol/L Anion Gap 9.0 (3-11) BUN 99 H (7-18) mg/dl Creatinine 4.28 H (0.6-1.2) mg/dl Est Cr Clr Drug Dosing 7.7 ml/min Est GFR ( Amer) 10.1 Est GFR (Non-Af Amer) 8.7 BUN/Creatinine Ratio 23.1 H (10-20) Glucose 123 H (70-99) mg/dl Lactate 1.4 (0.4-2.0) mmol/L Calcium 8.4 L (8.5-10.1) mg/dl Magnesium (1.8-2.4) mg/dl Iron 40 (35-150) mcg/dl TIBC 252 (250-450) mcg/dl Transferrin 215 (200-360) mg/dl Ferritin 65.1 (8-388) ng/ml Total Bilirubin (0.2-1) mg/dl AST (15-37) U/L ALT (12-78) U/L Alkaline Phosphatase (45-117) U/L Ammonia (11-32) umol/L Troponin I 0.137 H* (0-0.045) ng/ml Total Protein (6.4-8.2) gm/dl Albumin (3.4-5.0) gm/dl Globulin (2.5-4.0) gm/dl Albumin/Globulin Ratio (0.9-2) Vitamin B12 (211-911) pg/ml Folate (>5.38) ng/ml TSH 0.351 (0.300-4.500) uIu/ml Urine Color Dark Yellow Urine Appearance Cloudy A (Clear) Urine pH 5.0 (4.5-7.5) Ur Specific [place] 1.018 (1.000-1.030) Urine Protein Trace H (Negative) Urine Glucose (UA) Negative (Negative) Urine Ketones Trace H (Negative) Urine Blood Negative (Negative) Urine Nitrite Negative (Negative) Urine Bilirubin Negative (Negative) Urine Urobilinogen Negative (Negative) Ur Leukocyte Esterase 1+ H (Negative) Urine WBC (Auto) 5-10 H (0-5) /hpf Urine RBC (Auto) 0-4 (0-4) /hpf U Hyaline Cast (Auto) 10-30 H (0-5) /lpf U Epithel Cells (Auto) >30 H (0-5) /lpf Urine Bacteria (Auto) 1+ H (Negative) Calcium Oxalate Crystal Present A (None Prsent) Granular Casts 5-10 H (0) /lpf Urine Mucus Present A (None Prsent) Urine Yeast Not Reportable Nasal Screen MRSA (PCR) (Negative) Blood Type Antibody Screen 01/15/20 01/15/20 01/15/20 Range/Units 22:57 22:57 22:57 WBC 10.92 H (4.8-10.8) K/uL RBC 3.14 L (4.2-5.4) M/uL Hgb 9.7 L (12.0-16.0) g/dL Hct 27.9 L (37-47) % MCV 88.9 (80-100) fL MCH 30.9 (25-34) pg MCHC 34.8 (32-36) g/dL RDW Std Deviation 40.8 (36.4-46.3) fL RDW Coeff of Alhaji 12.6 (11.5-14.5) % Plt Count 290 (130-400) K/uL MPV 9.3 (7.4-10.4) fL Immature Gran % (Auto) 0.4 % Neut % (Auto) 78.1 % Lymph % (Auto) 14.1 % Mckenzie % (Auto) 5.7 % Eos % (Auto) 1.5 % Baso % (Auto) 0.2 % Reticulocyte % (Auto) (0.5-2.0) % Immature Gran # (Auto) 0.04 H (0.00-0.02) K/uL Neut # (Auto) 8.54 H (1.4-6.5) K/uL Lymph # (Auto) 1.54 (1.2-3.4) K/uL Mckenzie # (Auto) 0.62 H (0.11-0.59) K/uL Eos # (Auto) 0.16 (0-0.5) K/uL Baso # (Auto) 0.02 (0-0.2) K/uL Reticulocyte # (0.02-0.10) 10^6/uL PT 10.5 (9.0-12.0) Seconds INR 1.0 (0.9-1.1) APTT 29.1 (21.0-31.0) Seconds PTT Ratio 1.0 Sodium 132 L (136-145) mmol/L Potassium 4.5 (3.5-5.1) mmol/L Chloride 97 L (98-107) mmol/L Carbon Dioxide 26 (21-32) mmol/L Anion Gap 9.0 (3-11) BUN 101 H (7-18) mg/dl Creatinine 4.42 H (0.6-1.2) mg/dl Est Cr Clr Drug Dosing 7.4 ml/min Est GFR ( Amer) 9.7 Est GFR (Non-Af Amer) 8.4 BUN/Creatinine Ratio 22.8 H (10-20) Glucose 112 H (70-99) mg/dl Lactate (0.4-2.0) mmol/L Calcium 8.8 (8.5-10.1) mg/dl Magnesium 3.2 H (1.8-2.4) mg/dl Iron (35-150) mcg/dl TIBC (250-450) mcg/dl Transferrin (200-360) mg/dl Ferritin (8-388) ng/ml Total Bilirubin 0.4 (0.2-1) mg/dl AST 19 (15-37) U/L ALT 15 (12-78) U/L Alkaline Phosphatase 68 (45-117) U/L Ammonia (11-32) umol/L Troponin I 0.138 H* (0-0.045) ng/ml Total Protein 7.0 (6.4-8.2) gm/dl Albumin 3.5 (3.4-5.0) gm/dl Globulin 3.5 (2.5-4.0) gm/dl Albumin/Globulin Ratio 1.0 (0.9-2) Vitamin B12 (211-911) pg/ml Folate (>5.38) ng/ml TSH (0.300-4.500) uIu/ml Urine Color Urine Appearance (Clear) Urine pH (4.5-7.5) Ur Specific [place] (1.000-1.030) Urine Protein (Negative) Urine Glucose (UA) (Negative) Urine Ketones (Negative) Urine Blood (Negative) Urine Nitrite (Negative) Urine Bilirubin (Negative) Urine Urobilinogen (Negative) Ur Leukocyte Esterase (Negative) Urine WBC (Auto) (0-5) /hpf Urine RBC (Auto) (0-4) /hpf U Hyaline Cast (Auto) (0-5) /lpf U Epithel Cells (Auto) (0-5) /lpf Urine Bacteria (Auto) (Negative) Calcium Oxalate Crystal (None Prsent) Granular Casts (0) /lpf Urine Mucus (None Prsent) Urine Yeast Nasal Screen MRSA (PCR) (Negative) Blood Type Antibody Screen 01/15/20 Range/Units 00:16 WBC (4.8-10.8) K/uL RBC (4.2-5.4) M/uL Hgb (12.0-16.0) g/dL Hct (37-47) % MCV (80-100) fL MCH (25-34) pg MCHC (32-36) g/dL RDW Std Deviation (36.4-46.3) fL RDW Coeff of Alhaji (11.5-14.5) % Plt Count (130-400) K/uL MPV (7.4-10.4) fL Immature Gran % (Auto) % Neut % (Auto) % Lymph % (Auto) % Mckenzie % (Auto) % Eos % (Auto) % Baso % (Auto) % Reticulocyte % (Auto) 1.0 (0.5-2.0) % Immature Gran # (Auto) (0.00-0.02) K/uL Neut # (Auto) (1.4-6.5) K/uL Lymph # (Auto) (1.2-3.4) K/uL Mckenzie # (Auto) (0.11-0.59) K/uL Eos # (Auto) (0-0.5) K/uL Baso # (Auto) (0-0.2) K/uL Reticulocyte # 0.03 (0.02-0.10) 10^6/uL PT (9.0-12.0) Seconds INR (0.9-1.1) APTT (21.0-31.0) Seconds PTT Ratio Sodium (136-145) mmol/L Potassium (3.5-5.1) mmol/L Chloride (98-107) mmol/L Carbon Dioxide (21-32) mmol/L Anion Gap (3-11) BUN (7-18) mg/dl Creatinine (0.6-1.2) mg/dl Est Cr Clr Drug Dosing ml/min Est GFR ( Amer) Est GFR (Non-Af Amer) BUN/Creatinine Ratio (10-20) Glucose (70-99) mg/dl Lactate (0.4-2.0) mmol/L Calcium (8.5-10.1) mg/dl Magnesium (1.8-2.4) mg/dl Iron (35-150) mcg/dl TIBC (250-450) mcg/dl Transferrin (200-360) mg/dl Ferritin (8-388) ng/ml Total Bilirubin (0.2-1) mg/dl AST (15-37) U/L ALT (12-78) U/L Alkaline Phosphatase (45-117) U/L Ammonia (11-32) umol/L Troponin I (0-0.045) ng/ml Total Protein (6.4-8.2) gm/dl Albumin (3.4-5.0) gm/dl Globulin (2.5-4.0) gm/dl Albumin/Globulin Ratio (0.9-2) Vitamin B12 (211-911) pg/ml Folate (>5.38) ng/ml TSH (0.300-4.500) uIu/ml Urine Color Urine Appearance (Clear) Urine pH (4.5-7.5) Ur Specific [place] (1.000-1.030) Urine Protein (Negative) Urine Glucose (UA) (Negative) Urine Ketones (Negative) Urine Blood (Negative) Urine Nitrite (Negative) Urine Bilirubin (Negative) Urine Urobilinogen (Negative) Ur Leukocyte Esterase (Negative) Urine WBC (Auto) (0-5) /hpf Urine RBC (Auto) (0-4) /hpf U Hyaline Cast (Auto) (0-5) /lpf U Epithel Cells (Auto) (0-5) /lpf Urine Bacteria (Auto) (Negative) Calcium Oxalate Crystal (None Prsent) Granular Casts (0) /lpf Urine Mucus (None Prsent) Urine Yeast Nasal Screen MRSA (PCR) (Negative) Blood Type Antibody Screen Medications Administered Current Inpatient Medications Acetaminophen (Tylenol) 650 mg PO Q4 PRN PRN Reason: Fever Or Pain Stop: 02/15/20 02:55 Amlodipine Besylate (Norvasc) 5 mg PO DAILY [facility] Stop: 02/15/20 08:59 Last Admin: 01/16/20 07:51 Dose: 5 mg Documented by: Aspirin (Ecotrin Ectab) 81 mg PO DAILY [facility] Stop: 02/15/20 08:59 Last Admin: 01/16/20 07:51 Dose: 81 mg Documented by: Atorvastatin Calcium (Lipitor) 20 mg PO HS [facility] Stop: 02/15/20 20:59 Clopidogrel Bisulfate (Plavix) 75 mg PO DAILY [facility] Stop: 02/15/20 08:59 Last Admin: 01/16/20 07:51 Dose: 75 mg Documented by: Donepezil HCl (Aricept) 5 mg PO HS [facility] Stop: 02/15/20 20:59 Famotidine (Pepcid) 20 mg PO DAILY [facility] Stop: 02/15/20 08:59 Last Admin: 01/16/20 07:50 Dose: 20 mg Documented by: Ferrous Sulfate (Feosol) 325 mg PO DAILY [facility] Stop: 02/15/20 08:59 Last Admin: 01/16/20 07:51 Dose: 325 mg Documented by: Heparin Sodium (Porcine) (Heparin Sodium (Porcine)) 5,000 units SQ Q8 [facility] Stop: 02/15/20 05:59 Last Admin: 01/16/20 05:53 Dose: 5,000 units Documented by: Promethazine HCl 12.5 mg/ (Sodium Chloride) 50.5 mls @ 202 mls/hr IV Q6H PRN PRN Reason: Nausea And Vomiting Stop: 02/15/20 02:55 Sodium Chloride (Nss 1000ml) 1,000 mls @ 80 mls/hr IV .[id number] [facility] Stop: 01/17/20 07:04 Last Admin: 01/16/20 07:48 Dose: 80 mls/hr Documented by: Cefepime HCl 500 mg/ Syringe 5.65 mls @ 5.5 mls/min IV Q24H [facility]; Protocol Stop: 01/25/20 21:59 Isosorbide Mononitrate (Imdur Extended Rel) 30 mg PO DAILY [facility] Stop: 02/15/20 08:59 Last Admin: 01/16/20 07:50 Dose: 30 mg Documented by: [facility]othyroxine [facility] ([facility]throid) [facility] Stop: 02/15/20 06:29 Last Admin: 01/16/20 05:54 Dose: 75 mcg Documented by: Metoprolol Tartrate (Lopressor) 12.5 mg PO BID [facility] Stop: 02/15/20 08:59 Last Admin: 01/16/20 07:50 Dose: 12.5 mg Documented by: Miscellaneous Information (Cefepime Consult Active) 1 ea N/A UD PRN PRN Reason: Consult Stop: 02/15/20 03:57 Nitroglycerin (Nitrostat) 0.4 mg SL UD PRN PRN Reason: Chest Pain Stop: 02/15/20 02:55 Senna/Docusate Sodium (Senokot S) 1 tab PO BID [facility] Stop: 02/15/20 08:59 Last Admin: 01/16/20 07:51 Dose: 1 tab Documented by:
[2020-01-16] MEDS ORDERED: cloNIDine HCL 0.3 MG TAB PO SCH (09:00)
[2020-01-16] MEDS ORDERED: METOPROLOL TARTRATE 50 MG TAB PO SCH (09:00)
--- NOTE | 2020-01-16 10:26 | Nephrology Consultation ---
Date of Consultation January 16, 2020 Assessment & Plan (1) Acute kidney injury superimposed on CKD: Patient with acute kidney injury on CKD. Baseline creatinine of 2.6 for the past 4-month. Etiology of worsening renal function is unclear and this is likely progressively worsening renal function. UA showed slightly concentrated urine with a lot of hyaline casts which would point towards a prerenal picture. CT abdomen did not show any hydronephrosis. Per notes from [facility], patient' s family did not want to pursue dialysis. -Agree with continuing normal saline at 80 mL/h. -Monitor renal function with daily BMP. -Avoid nephrotoxins such as contrast unless lifesaving. (2) Encephalopathy: Patient has dementia and could have delirium which is common in demented patients. She could have uremic encephalopathy but patient and family decided against dialysis. We will continue conservative management and monitoring mental status. (3) Anemia: Due to advanced CKD. Will check iron stores. Patient might require Epogen if iron stores are adequate. (4) Hypertension: Blood pressure is controlled. We will stop her clonidine as patient has relatively low heart rate. Given advanced age she might benefit from a slightly higher blood pressure. History of Present Illness Reason for Consultation: Acute kidney injury on CKD Requesting Physician: Luke Almeida MD Attending Physician: Luke Almeida MD History of Present Illness This is 89-year-old female with history of dementia, CVA, carotid disease status post stent in 2017 and CKD stage IV with baseline creatinine of 2.6 as of 12/22/2019 who was admitted on 01/16/2020 with a altered mental status. Patient is a resident of [facility] in [place]. She was noted to have a change in mental status from baseline. Patient is demented and not a reliable historian. She reports feeling fine and denies shortness of breath. In the emergency room she was found to have a creatinine of 4.4 and this is slightly improved to 3.9 this morning were normal saline at 80 mL/h. Her BUN remains high at 101. Per notes from [facility] family and patient decided not to ever do dialysis even if needed. She had a CT abdomen in the emergency room which showed no hydronephrosis but showed cardiomegaly. Allergies Allergy/AdvReac Type Severity Reaction Status Date / Time tramadol Allergy Unknown Verified 01/15/20 23:06 Home Medications Home Medications Medication Instructions Recorded Confirmed Type Antacid 500 Mg Tab 500 mg PO QID PRN 01/15/20 01/15/20 History acetaminophen [Tylenol] 650 mg PO Q4 PRN 01/15/20 01/15/20 History amlodipine [Norvasc] 5 mg PO DAILY 01/15/20 01/15/20 History aspirin 81 mg PO DAILY 01/15/20 01/15/20 History atorvastatin 20 mg PO HS 01/15/20 01/15/20 History calcium carbonate [Tums] 400 mg PO Q6 PRN 01/15/20 01/15/20 History clonidine HCl [Catapres] 0.3 mg PO AMPM 01/15/20 01/15/20 History clopidogrel [Plavix] 75 mg PO DAILY 01/15/20 01/15/20 History diclofenac sodium 2 g TOPICAL QID 01/15/20 01/15/20 History donepezil 5 mg PO HS 01/15/20 01/15/20 History famotidine 20 mg PO DAILY 01/15/20 01/15/20 History ferrous sulfate 325 mg PO DAILY 01/15/20 01/15/20 History furosemide [Lasix] 40 mg PO DAILY 01/15/20 01/15/20 History isosorbide mononitrate 30 mg PO DAILY 01/15/20 01/15/20 History levothyroxine 75 mcg PO DAILY 01/15/20 01/15/20 History lisinopril 20 mg PO AMHS 01/15/20 01/15/20 History magnesium oxide 400 mg PO DAILY 01/15/20 01/15/20 History metolazone 2.5 mg PO WK 01/15/20 01/15/20 History metoprolol tartrate 25 mg PO HS 01/15/20 01/15/20 History metoprolol tartrate 50 mg PO QAM 01/15/20 01/15/20 History ondansetron HCl [Zofran] 4 mg PO Q6H PRN 01/15/20 01/15/20 History sennosides-docusate sodium 1 tab-cap PO BID 01/15/20 01/15/20 History [Senna-S] spironolactone 25 mg PO DAILY 01/15/20 01/15/20 History Patient History Social History Preferred Language: [employer] [employer] Required: No Beliefs That Will Affect Care: None Current Living Situation: Snf Current Living Situation Comment: resident at [facility] Feels Safe at Home: Yes Smoking Status: Unknown if ever smoked Review of Systems Review of Systems: Unobtainable due to cognitive status Physical Exam Physical Exam: General exam: Appears comfortable, no acute distress HEENT: Pupils are equal and reactive to light Neck: No JVD, neck is supple trachea is midline Respiratory system: Clear breath sounds bilaterally. Gastrointestinal: Abdomen is soft, non distended, non tender, bowel sounds are present CVS: Regular rate and rhythm. No murmurs, rubs or gallops Musculoskeletal: No joint or muscle tenderness Extremities: Non tender, trace edema, peripheral pulses are present Neuro: Oriented x1 patient has memory impairment due to dementia, no tremors, no focal neurological deficits Skin: No rashes Results & Data Vital Signs (Past 12 Hours) Vital Signs Temp Pulse Pulse Pulse Resp BP BP 01/16/20 08:00 58 L 01/16/20 07:25 36.7 C 60 20 131/58 L 01/16/20 04:18 36.6 C 56 L 18 131/70 01/16/20 03:00 36.8 C 66 61 20 01/16/20 01:45 57 L 15 115/45 L 01/16/20 01:30 57 L 13 98/42 L 01/16/20 01:15 55 L 16 122/42 L 01/16/20 00:45 56 L 14 110/40 L 01/16/20 00:30 58 L 15 124/44 L 01/15/20 23:45 57 L 15 109/40 L 01/15/20 23:30 62 13 126/50 L 01/15/20 23:00 59 L 61 17 124/62 01/15/20 22:31 01/15/20 22:22 36.5 C 66 18 126/48 L BP Pulse Ox 01/16/20 08:00 01/16/20 07:25 96 01/16/20 04:18 100 01/16/20 03:00 147/65 H 100 01/16/20 01:45 01/16/20 01:30 01/16/20 01:15 98 01/16/20 00:45 99 01/16/20 00:30 99 01/15/20 23:45 98 01/15/20 23:30 99 01/15/20 23:00 124/62 96 01/15/20 22:31 97 01/15/20 22:22 97 Laboratory Results 01/16/20 05:52 01/15/20 01/15/20 01/16/20 22:57 22:57 05:52 WBC 10.92 H 10.17 RBC 3.14 L 2.87 L MCV 88.9 89.2 MCH 30.9 30.0 MCHC 34.8 33.6 RDW Std Deviation 40.8 41.2 RDW Coeff of Alhaji 12.6 12.6 Plt Count 290 224 MPV 9.3 8.6 Albumin 3.5
--- NOTE | 2020-01-16 10:44 | Electrocardiogram Report ---
Test Reason : Blood Pressure : / mmHG Vent. Rate : 063 BPM Atrial Rate : 063 BPM P-R Int : 192 ms QRS Dur : 134 ms QT Int : 502 ms P-R-T Axes : 061 -30 132 degrees QTc Int : 513 ms Poor data quality, interpretation may be adversely affected Normal sinus rhythm Left axis deviation Left bundle branch block Abnormal ECG No previous ECGs available Confirmed by Venancio Vásquez ([id number]) on 01/16/2020 10:44:27 AM Referred By: Franklyn Estes Confirmed By:Venancio Vásquez
[2020-01-16 10:56] LABS: Iron 49 mcg/dl (35-150); Transferrin 211 mg/dl (200-360); Transferrin Percent Saturation 16 % (15-50)
[2020-01-16] MEDS ORDERED: METOPROLOL TARTRATE 25 MG TAB PO SCH (21:00)
[2020-01-16] MEDS: DONEPEZIL HCL 5 MG TAB PO SCH (21:02)
[2020-01-16] MEDS: ATORVASTATIN 20 MG TAB PO SCH (21:02)
[2020-01-16] MEDS ORDERED: CEFEPIME 500 MG in SYRINGE 0 ML IV SCH (22:00)
[2020-01-17] MEDS ORDERED: cloNIDine HCL 0.1 MG TAB PO ONE ×2 (03:33→16:11)
--- NOTE | 2020-01-17 03:33 | Communication Note ---
Date of Service: January 17, 2020 Made aware by RN of uncontrolled BP since afternoon. SBP 140-180s. Patient asymptomatic. AP Hypertensive urgency ? Clonidine withdrawal Increase maintenance beta-rosario for now Clonidine 1 dose now Resume clonidine at lower maintenance dose if okay with Nephrology if BP continues to be uncontrolled. Will relay to AM provider.
[2020-01-17] MEDS: METOPROLOL TARTRATE 25 MG TAB PO SCH ×2 (04:12→19:59)
[2020-01-17] MEDS: LEVOTHYROXINE SODIUM 75 MCG TABLET PO SCH (06:26)
[2020-01-17] MEDS: HEPARIN SOD 5,000 UNIT/0.5 ML VIAL SQ SCH ×3 (06:26→21:53)
[2020-01-17] MEDS: FERROUS SULFATE 325 MG TAB PO SCH (07:57)
[2020-01-17] MEDS: CLOPIDOGREL BISULFATE 75 MG TAB PO SCH (07:57)
[2020-01-17] MEDS: ASPIRIN 81 MG ECTAB PO SCH (07:57)
[2020-01-17] MEDS: FAMOTIDINE 20 MG TAB PO SCH (07:57)
[2020-01-17] MEDS: ISOSORBIDE MONO EXTENDED REL 30 MG TABCR PO SCH (07:58)
[2020-01-17] MEDS: DOCUSATE SODIUM/SENNA 50/8.6MG TAB PO SCH ×2 (07:58→20:01)
[2020-01-17] MEDS: AMLODIPINE BESYLATE 5 MG TAB PO SCH (07:58)
[2020-01-17 08:13] LABS: Hematocrit (blood only) 28.9 % (37-47); Hemoglobin 9.6 g/dL (12.0-16.0); Mean Corpuscular Hemoglobin 29.4 pg (25-34); Mean Corpuscular Hgb Conc 33.2 g/dL (32-36); Mean Corpuscular Volume 88.7 fL (80-100); Mean Platelet Volume 9.5 fL (7.4-10.4); Platelet Count 244 K/uL (130-400); RDW Coefficient of Variation 12.5 % (11.5-14.5); RDW Standard Deviation 40.5 fL (36.4-46.3); Red Blood Count 3.26 M/uL (4.2-5.4); White Blood Count 8.12 K/uL (4.8-10.8)
[2020-01-17 08:22] LABS: BUN Creatinine Ratio 29.4 (10-20); Calcium 8.9 mg/dl (8.5-10.1); Creatinine Clr Calc Pharmacy 16.7 ml/min; Est GFR (Non-African American) 22.4; Magnesium 2.9 mg/dl (1.8-2.4); Potassium 3.7 mmol/L (3.5-5.1)
--- NOTE | 2020-01-17 16:16 | Hospitalist Progress Note ---
Date of Service January 17, 2020 Assessment & Plan (1) Encephalopathy: Metabolic encephalopathy vs. Delirium on dementia Multifactorial : Complicated UTI, no sepsis for now, rule out obstructive uropathy Possible uremia (BUN 100s), ARF on CRI CT abdomen pelvis RE complicated UTI, ARF on CRI Follow urine cultures, IV Cefepime for now Received IVF, Cr much improved, BUN down to 50s Continue to hold home diuretics, ALON inhibitor Nephrology consulted Chronic anemia - in the setting of CKD - current hemoglobin within range of 2 disparate lab results drawn this month - anemia work up HTN, BP currently elevated Stop IVF, restart clonidine at lower dose, amlodipine incr. per nephro Troponin elevation in the setting of worsening kidney dysfunction Chronic diastolic HF as per records, patient on the dry side on admission Hx CAD status post stent Chronic LBBB History CVA as per records Hypothyroidism, euthyroid as of today's TSH Hyperglycemia likely prediabetes, hemoglobin A1c of 6.24 December 2019 DVT prophylaxis. Heparin subcu DNR as per prior directives as per half-way staff. Patient's daughter/POA (Ms. Kenna Marcum, contact #[phone] 10/30 [phone]) updated. Admission and Anticipated Discharge Date Admission Date: January 16, 2020 Subjective Pt hypertensive overnight and this AM. IVF stopped, received AM dose of amlodipine and clonidine at lower dose re-started. Currently pt is sitting up in chair in NAD. She has no complaints and seems to answer questions appropriately however she is not very talkative. She denies any fevers, chills, chest pain, shortness of breath, abdominal pain, nausea or vomiting. Cr much improved today, BUN down to 50s from 100s Updated patient's daughter Lakshmi, over the phone, on pt's clinical status. Review of Systems Review of Systems: All systems reviewed & are unremarkable except as noted in HPI & below pt not very talkative but denies any complaints, answers most questions appropriately Constitutional: no fever and no chills Respiratory: no cough and no dyspnea Cardiovascular: no chest pain and no palpitations Gastrointestinal: no abdominal pain, no nausea and no vomiting Physical Exam Physical Exam: GENERAL: Elderly female sitting up in chair in NAD HEENT: NC/AT, EOMI, PERRL NECK : Supple, no tenderness CHEST : CTAB, no wheezing, rhonchi, crackles HEART : RRR, no obvious murmurs ABDOMEN: normal bowel sounds, soft, nontender, nondistended EXTREMITIES : no LE edema b/l, moves extremities spontaneously SKIN: Pallor , warm NEUROLOGIC : awake and alert, answers questions mostly appropriately, demented, not talkative, moves extremities spontaneously Results & Data Results & Data ([facility]) Vital Signs (Past 12 Hours) Vital Signs Temp Pulse Pulse Resp BP BP Pulse Ox 01/17/20 15:27 36.7 C 69 18 179/77 H 99 01/17/20 14:19 73 01/17/20 11:27 36.5 C 67 16 192/73 H 94 01/17/20 07:08 36.8 C 65 16 187/70 H 95 01/17/20 06:32 197/87 H Laboratory Results 01/17/20 01/17/20 Range/Units 07:42 07:42 WBC 8.12 (4.8-10.8) K/uL RBC 3.26 L (4.2-5.4) M/uL Hgb 9.6 L (12.0-16.0) g/dL Hct 28.9 L (37-47) % MCV 88.7 (80-100) fL MCH 29.4 (25-34) pg MCHC 33.2 (32-36) g/dL RDW Std Deviation 40.5 (36.4-46.3) fL RDW Coeff of Alhaji 12.5 (11.5-14.5) % Plt Count 244 (130-400) K/uL MPV 9.5 (7.4-10.4) fL Sodium 143 D (136-145) mmol/L Potassium 3.7 (3.5-5.1) mmol/L Chloride 112 H (98-107) mmol/L Carbon Dioxide 23 (21-32) mmol/L Anion Gap 8.0 (3-11) BUN 58 H (7-18) mg/dl Creatinine 1.96 H D (0.6-1.2) mg/dl Est Cr Clr Drug Dosing 16.7 ml/min Est GFR ( Amer) 26.0 Est GFR (Non-Af Amer) 22.4 BUN/Creatinine Ratio 29.4 H (10-20) Glucose 96 (70-99) mg/dl Calcium 8.9 (8.5-10.1) mg/dl Phosphorus 3.0 (2.5-4.9) mg/dl Magnesium 2.9 H (1.8-2.4) mg/dl Medications Administered Current Inpatient Medications Acetaminophen (Tylenol) 650 mg PO Q4 PRN PRN Reason: Fever Or Pain Stop: 02/15/20 02:55 Amlodipine Besylate (Norvasc) 5 mg PO DAILY [facility] Stop: 02/15/20 08:59 Last Admin: 01/17/20 07:58 Dose: 5 mg Documented by: Aspirin (Ecotrin Ectab) 81 mg PO DAILY [facility] Stop: 02/15/20 08:59 Last Admin: 01/17/20 07:57 Dose: 81 mg Documented by: Atorvastatin Calcium (Lipitor) 20 mg PO HS [facility] Stop: 02/15/20 20:59 Last Admin: 01/16/20 21:02 Dose: 20 mg Documented by: Clonidine HCl (Catapres) 0.1 mg PO BID [facility] Stop: 02/16/20 20:59 Clopidogrel Bisulfate (Plavix) 75 mg PO DAILY [facility] Stop: 02/15/20 08:59 Last Admin: 01/17/20 07:57 Dose: 75 mg Documented by: Donepezil HCl (Aricept) 5 mg PO HS [facility] Stop: 02/15/20 20:59 Last Admin: 01/16/20 21:02 Dose: 5 mg Documented by: Famotidine (Pepcid) 20 mg PO DAILY [facility] Stop: 02/15/20 08:59 Last Admin: 01/17/20 07:57 Dose: 20 mg Documented by: Ferrous Sulfate (Feosol) 325 mg PO DAILY [facility] Stop: 02/15/20 08:59 Last Admin: 01/17/20 07:57 Dose: 325 mg Documented by: Heparin Sodium (Porcine) (Heparin Sodium (Porcine)) 5,000 units SQ Q8 [facility] Stop: 02/15/20 05:59 Last Admin: 01/17/20 14:06 Dose: 5,000 units Documented by: Promethazine HCl 12.5 mg/ (Sodium Chloride) 50.5 mls @ 202 mls/hr IV Q6H PRN PRN Reason: Nausea And Vomiting Stop: 02/15/20 02:55 Cefepime HCl 1,000 mg/ Syringe 11.3 mls @ 5.5 mls/min IV DAILY@2200 [facility]; Protocol Stop: 01/25/20 21:59 Isosorbide Mononitrate (Imdur Extended Rel) 30 mg PO DAILY [facility] Stop: 02/15/20 08:59 Last Admin: 01/17/20 07:58 Dose: 30 mg Documented by: Levothyroxine Sodium (Synthroid) 75 mcg PO DAILYBB [facility] Stop: 02/15/20 06:29 Last Admin: 01/17/20 06:26 Dose: 75 mcg Documented by: Metoprolol Tartrate (Lopressor) 25 mg PO BID [facility] Stop: 02/16/20 03:44 Last Admin: 01/17/20 04:12 Dose: 25 mg Documented by: Miscellaneous Information (Cefepime Consult Active) 1 ea N/A UD PRN PRN Reason: Consult Stop: 02/15/20 03:57 Nitroglycerin (Nitrostat) 0.4 mg SL UD PRN PRN Reason: Chest Pain Stop: 02/15/20 02:55 Senna/Docusate Sodium (Senokot S) 1 tab PO BID [facility] Stop: 02/15/20 08:59 Last Admin: 01/17/20 07:58 Dose: 1 tab Documented by:
[2020-01-17] MEDS ORDERED: AMLODIPINE BESYLATE 5 MG TAB PO ONE (19:18)
--- NOTE | 2020-01-17 19:21 | Nephrology Progress Note ---
Date of Service January 17, 2020 Assessment & Plan (1) Acute kidney injury superimposed on CKD: Patient with acute kidney injury on CKD. Baseline creatinine of 2.6 for the past 4-month. Etiology of worsening renal function is unclear and this is likely progressively worsening renal function but may also relate to medications. UA showed slightly concentrated urine with a lot of hyaline casts which would point towards a prerenal picture. CT abdomen did not show any hydronephrosis. Per notes from Kathleen Soriano, patient's family did not want to pursue dialysis. She has had a lot of lability in her blood pressure with high readings for most of the past day and lower readings earlier this admission: This may stall renal improvement or even worsened renal function -Improving and better than baseline today with hydration and withholding ALON inhibitor and diuretics -Monitor renal function with daily BMP. -Avoid nephrotoxins such as contrast unless lifesaving. -Hold normal saline for now given hypertension -Other blood pressure management as below (2) Encephalopathy: Patient has dementia and could have delirium which is common in demented patients. We will continue conservative management and monitoring mental status.; Uremia may have had a role (3) Anemia: Due to advanced CKD. Her iron stores are low. -Consider trial of IV iron this week -patient might require Epogen in the future -Hemoglobin ordered for a.m. (4) Hypertension: Clonidine was stopped yesterday and patient has since had rebound hypertension: Agree with holding normal saline and resuming very low-dose clonidine 0.1 mg twice daily blood pressure is controlled. Continue medium dose beta-rosario and amlodipine. Goal blood pressure is systolics in the 140s or 150s for now -Note that as outpatient she was on 50 mg of metoprolol in the morning and 25 mg in the evening; heart rate still on the lower side will defer increasing this Continue to hold lisinopril and spironolactone and once weekly metolazone She is on baseline outpatient amlodipine dose I will increase to 10 mg >> extra 5 mg dose today, then 10 mg daily starting in AM -does not take clonidine as OP and will look to cont to taper cautiously -given advanced age she might benefit from a slightly higher blood pressure. Admission and Anticipated Discharge Date Admission Date: January 16, 2020 Subjective Seen on evening rounds at approximately 1815. No complaints except that she misses her glasses and dentures. Denies shortness of breath, denies nausea vomiting; denies musculoskeletal or abdominal pain Review of Systems Review of Systems: ROS is limited by cognitive status Physical Exam Constitutional: well developed, + frail appearing and cooperative Lying flat on room air Eyes: EOM intact bilaterally ENMT: Ears: no external ear abnormality Nose: no external nose abnormality Mouth: + dry oral mucous membranes Neck: no nuchal rigidity Respiratory: normal respiratory effort; no cough Auscultation: + diminished lung sounds Cardiovascular: RRR, no murmur, no edema Gastrointestinal (Abdomen): Inspection/Auscultation: normal bowel sounds Percussion/Palpation: abdomen soft; abdomen nontender Musculoskeletal: Extremities: + abnormal strength Generalized weakness Skin: no rashes, warm and dry Neurologic: hale, limited and mostly appropriate speech, no tremor Psychiatric: Orientation: alert and oriented to person Motor Behavior: + psychomotor retardation Genitourinary: [place] with ample urine output Results & Data ([facility]) Vital Signs (Past 12 Hours) Vital Signs Temp Pulse Pulse Resp BP BP Pulse Ox 01/17/20 15:27 36.7 C 69 18 179/77 H 99 01/17/20 14:19 73 01/17/20 11:27 36.5 C 67 16 192/73 H 94 01/17/20 07:08 36.8 C 65 16 187/70 H 95 Laboratory Results 01/17/20 07:42 01/17/20 07:42
[2020-01-17] MEDS: cloNIDine HCL 0.1 MG TAB PO SCH (19:59)
[2020-01-17] MEDS: DONEPEZIL HCL 5 MG TAB PO SCH (19:59)
[2020-01-17] MEDS: ATORVASTATIN 20 MG TAB PO SCH (20:00)
[2020-01-17] MEDS ORDERED: CEFEPIME 1,000 MG in SYRINGE 0 ML IV SCH (22:00)
[2020-01-18] MEDS: LEVOTHYROXINE SODIUM 75 MCG TABLET PO SCH (06:26)
[2020-01-18] MEDS: HEPARIN SOD 5,000 UNIT/0.5 ML VIAL SQ SCH ×3 (06:26→21:02)
--- NOTE | 2020-01-18 07:31 | Nephrology Progress Note ---
Date of Service January 18, 2020 Assessment & Plan (1) Acute kidney injury superimposed on CKD: Patient with acute kidney injury on CKD. Baseline creatinine of 2.6 for the past 4-month. Etiology of worsening renal function is unclear and this is likely in part progressive CKD but may also relate to medications. UA on presentation showed slightly concentrated urine with a lot of hyaline casts which would point towards a prerenal picture. CT abdomen did not show any hydronephrosis. Per notes from Kathleen Soriano, patient's family did not want to pursue dialysis. She has had a lot of lability in her blood pressure with high readings for most of the past day and lower readings earlier this admission: This may stall renal improvement or even worsened renal function -Improving and better than baseline yesterday with hydration and withholding ALON inhibitor and diuretics - waiting on labs today -Monitor renal function with daily BMP. -Avoid nephrotoxins such as contrast unless lifesaving. -Hold normal saline for now given hypertension -Other blood pressure management as below (2) Encephalopathy: Patient has dementia and could have delirium which is common in demented patients. We will continue conservative management and monitoring mental status.; Uremia may have had a role (3) Anemia: Due to advanced CKD. Her iron stores are low. -Consider trial of IV iron this week -patient might require Epogen in the future -Hemoglobin ordered for a.m. (4) Hypertension: Clonidine was stopped 01/15 and patient has since had significant rebound hypertension: Agree with holding normal saline and resuming very low-dose clonidine 0.1 mg twice daily blood pressure is controlled. Continue medium dose beta-rosario and amlodipine. Goal blood pressure is systolics in the 140s or 150s for now -Note that as outpatient she was on 50 mg of metoprolol in the morning and 25 mg in the evening>> will resume this regimen Continue to hold lisinopril and spironolactone and once weekly metolazone She is on baseline outpatient amlodipine dose increased on 01/16 to 10 mg daily -does not take clonidine as OP and will look to cont to taper cautiously -given advanced age she might benefit from a slightly higher blood pressure. Admission and Anticipated Discharge Date Admission Date: January 16, 2020 Subjective agitated and distressed this am and confused >> tearful b/c "my family says I stole the money." denies sob or abd pain. no GRIFFIN or visual changes. difficult to get more ros than this Review of Systems Review of Systems: Other (limited by pt agitation/distress) Physical Exam Constitutional: well developed, + frail appearing and cooperative on RA Eyes: EOM intact bilaterally ENMT: Ears: no external ear abnormality Nose: no external nose abnormality Mouth: + dry oral mucous membranes Neck: no nuchal rigidity Respiratory: normal respiratory effort; no cough Auscultation: + diminished lung sounds Cardiovascular: RRR, no murmur, no edema Gastrointestinal (Abdomen): Inspection/Auscultation: normal bowel sounds Percussion/Palpation: abdomen soft; abdomen nontender Musculoskeletal: Extremities: + abnormal strength Skin: no rashes, warm and dry Psychiatric: Orientation: alert and oriented to person Motor Behavior: + psychomotor retardation Affect: + anxious affect and + tearful affect Results & Data ([facility]) Vital Signs (Past 12 Hours) Vital Signs Temp Pulse Pulse Resp BP Pulse Ox 01/18/20 07:17 95 H 01/18/20 05:53 72 01/18/20 03:09 37.2 C 100 H 22 198/95 H 98 01/17/20 23:20 36.8 C 68 18 185/80 H 94 01/17/20 19:27 36.6 C 76 18 184/78 H 97 Laboratory Results 01/18/20 06:09
[2020-01-18 07:42] LABS: BUN Creatinine Ratio 22.4 (10-20); Calcium 10.2 mg/dl (8.5-10.1); Creatinine Clr Calc Pharmacy 20.9 ml/min; Est GFR (Non-African American) 29.3; Potassium 3.4 mmol/L (3.5-5.1)
[2020-01-18] MEDS: FERROUS SULFATE 325 MG TAB PO SCH (08:06)
[2020-01-18] MEDS: cloNIDine HCL 0.1 MG TAB PO SCH ×2 (08:06→21:05)
[2020-01-18] MEDS: ASPIRIN 81 MG ECTAB PO SCH (08:06)
[2020-01-18] MEDS: ISOSORBIDE MONO EXTENDED REL 30 MG TABCR PO SCH (08:06)
[2020-01-18] MEDS: CLOPIDOGREL BISULFATE 75 MG TAB PO SCH (08:07)
[2020-01-18] MEDS: DOCUSATE SODIUM/SENNA 50/8.6MG TAB PO SCH ×2 (08:07→21:05)
[2020-01-18] MEDS: FAMOTIDINE 20 MG TAB PO SCH (08:07)
[2020-01-18] MEDS: AMLODIPINE BESYLATE 5 MG TAB PO SCH (08:07)
[2020-01-18] MEDS ORDERED: POTASSIUM CHLORIDE 20 MEQ TABCR PO STA (08:18)
--- NOTE | 2020-01-18 08:29 | Hospitalist Progress Note ---
Date of Service January 18, 2020 Assessment & Plan (1) Encephalopathy: Metabolic encephalopathy vs. Delirium on dementia Multifactorial : Complicated UTI, no sepsis for now, rule out obstructive uropathy Possible uremia (BUN 100s), JAMES on CKD CT abdomen pelvis -no acute process in the abdomen or pelvis, bilateral renal cysts, no evidence for renal hydronephrosis. Urine culture - Growing alpha strep, not enterococcus IV Cefepime initially, now will switch to p.o. Amoxicillin Received IVF, Cr much improved, BUN down to 35 (on admission 101) Continue to hold home diuretics, ALON inhibitor Nephrology consulted Chronic anemia - in the setting of CKD - current hemoglobin within range of 2 disparate lab results drawn this month - anemia work up HTN, BP currently elevated Stopped IVF, restarted clonidine at lower dose, amlodipine dose increased per nephro Troponin elevation in the setting of worsening kidney dysfunction Chronic diastolic HF as per records, patient on the dry side on admission Hx CAD status post stent Chronic LBBB History CVA as per records Hypothyroidism, euthyroid as of current TSH Hyperglycemia likely prediabetes, hemoglobin A1c of 6.3% December 2019 DVT prophylaxis. Heparin subcu DNR as per prior directives as per long term staff Patient's daughter/POA (Ms. Kenna Marcum, can be contacted at or . Admission and Anticipated Discharge Date Admission Date: January 16, 2020 Subjective Currently pt is sitting up in chair in NAD. However she is quite confused, she insists that she is going to skilled nursing tomorrow. Even after I have reassured her that she is in the hospital and she will go to [facility], she insists that she is going to skilled nursing tomorrow. I also talked her about her d juhi Martins, encouraged her to talk to her, then patient told me that her daughter is trying to get her to skilled nursing. I heard the same story from Lakshmi yesterday. She has otherwise no complaints, denies any fevers, chills, chest pain, shortness of breath, abdominal pain, nausea or vomiting. Cr much improved today, BUN down to 35 from 100s. Review of Systems Review of Systems: All systems reviewed & are unremarkable except as noted in HPI & below However patient seems confused Constitutional: no fever and no chills Respiratory: no cough and no dyspnea Cardiovascular: no chest pain and no palpitations Gastrointestinal: no abdominal pain and no nausea Physical Exam Physical Exam: GENERAL: Elderly female sitting up in chair in NAD HEENT: NC/AT, EOMI, PERRL NECK : Supple, no tenderness CHEST : CTAB, no wheezing, rhonchi, crackles HEART : RRR, no obvious murmurs ABDOMEN: normal bowel sounds, soft, nontender, nondistended EXTREMITIES : no LE edema b/l, moves extremities spontaneously : [place] catheter in place, drains clear yellow urine SKIN: warm, dry NEUROLOGIC : awake and more communicative today, however quite confused, believes that she is going to skilled nursing tomorrow, demented, moves extremities spontaneously Results & Data Results & Data ([facility]) Vital Signs (Past 12 Hours) Vital Signs Temp Pulse Pulse Resp BP Pulse Ox 01/18/20 07:46 36.7 C 101 H 16 193/83 H 98 01/18/20 07:17 95 H 01/18/20 05:53 72 01/18/20 03:09 37.2 C 100 H 22 198/95 H 98 01/17/20 23:20 36.8 C 68 18 185/80 H 94 Laboratory Results 01/18/20 01/18/20 Range/Units 06:09 06:09 Hgb 11.0 L (12.0-16.0) g/dL Sodium 140 (136-145) mmol/L Potassium 3.4 L (3.5-5.1) mmol/L Chloride 108 H (98-107) mmol/L Carbon Dioxide 22 (21-32) mmol/L Anion Gap 10.0 (3-11) BUN 35 H (7-18) mg/dl Creatinine 1.57 H D (0.6-1.2) mg/dl Est Cr Clr Drug Dosing 20.9 ml/min Est GFR ( Amer) 34.0 Est GFR (Non-Af Amer) 29.3 BUN/Creatinine Ratio 22.4 H (10-20) Glucose 135 H (70-99) mg/dl Calcium 10.2 H (8.5-10.1) mg/dl Medications Administered Current Inpatient Medications Acetaminophen (Tylenol) 650 mg PO Q4 PRN PRN Reason: Fever Or Pain Stop: 02/15/20 02:55 Amlodipine Besylate (Norvasc) 10 mg PO DAILY [facility] Stop: 02/17/20 08:59 Last Admin: 01/18/20 08:07 Dose: 10 mg Documented by: Aspirin (Ecotrin Ectab) 81 mg PO DAILY [facility] Stop: 02/15/20 08:59 Last Admin: 01/18/20 08:06 Dose: 81 mg Documented by: Atorvastatin Calcium (Lipitor) 20 mg PO HS [facility] Stop: 02/15/20 20:59 Last Admin: 01/17/20 20:00 Dose: 20 mg Documented by: Clonidine HCl (Catapres) 0.1 mg PO BID [facility] Stop: 02/16/20 20:59 Last Admin: 01/18/20 08:06 Dose: 0.1 mg Documented by: Clopidogrel Bisulfate (Plavix) 75 mg PO DAILY [facility] Stop: 02/15/20 08:59 Last Admin: 01/18/20 08:07 Dose: 75 mg Documented by: Donepezil HCl (Aricept) 5 mg PO HS [facility] Stop: 02/15/20 20:59 Last Admin: 01/17/20 19:59 Dose: 5 mg Documented by: Famotidine (Pepcid) 20 mg PO DAILY [facility] Stop: 02/15/20 08:59 Last Admin: 01/18/20 08:07 Dose: 20 mg Documented by: Ferrous Sulfate (Feosol) 325 mg PO DAILY [facility] Stop: 02/15/20 08:59 Last Admin: 01/18/20 08:06 Dose: 325 mg Documented by: Heparin Sodium (Porcine) (Heparin Sodium (Porcine)) 5,000 units SQ Q8 [facility] Stop: 02/15/20 05:59 Last Admin: 01/18/20 06:26 Dose: 5,000 units Documented by: Promethazine HCl 12.5 mg/ (Sodium Chloride) 50.5 mls @ 202 mls/hr IV Q6H PRN PRN Reason: Nausea And Vomiting Stop: 02/15/20 02:55 Last Infusion: 01/18/20 05:05 Dose: Infused Documented by: Cefepime HCl 1,000 mg/ Syringe 11.3 mls @ 5.5 mls/min IV DAILY@2200 [facility]; Protocol Stop: 01/25/20 21:59 Last Admin: 01/17/20 21:53 Dose: 5.5 mls/min Documented by: Isosorbide Mononitrate (Imdur Extended Rel) 30 mg PO DAILY [facility] Stop: 02/15/20 08:59 Last Admin: 01/18/20 08:06 Dose: 30 mg Documented by: Levothyroxine Sodium (Synthroid) 75 mcg PO DAILYBB [facility] Stop: 02/15/20 06:29 Last Admin: 01/18/20 06:26 Dose: 75 mcg Documented by: Metoprolol Tartrate (Lopressor) 50 mg PO QAM [facility] Stop: 02/17/20 08:59 Metoprolol Tartrate (Lopressor) 25 mg PO QPM [facility] Stop: 02/17/20 20:59 Miscellaneous Information (Cefepime Consult Active) 1 ea N/A UD PRN PRN Reason: Consult Stop: 02/15/20 03:57 Nitroglycerin (Nitrostat) 0.4 mg SL UD PRN PRN Reason: Chest Pain Stop: 02/15/20 02:55 Senna/Docusate Sodium (Senokot S) 1 tab PO BID [facility] Stop: 02/15/20 08:59 Last Admin: 01/18/20 08:07 Dose: 1 tab Documented by:
[2020-01-18] MEDS: METOPROLOL TARTRATE 50 MG TAB PO SCH (08:51)
[2020-01-18] MEDS ORDERED: METOPROLOL TARTRATE 25 MG TAB PO SCH (21:00)
[2020-01-18] MEDS: DONEPEZIL HCL 5 MG TAB PO SCH (21:05)
[2020-01-18] MEDS: ATORVASTATIN 20 MG TAB PO SCH (21:05)
[2020-01-18] MEDS: AMOXICILLIN 500 MG CAP PO SCH (21:05)
[2020-01-19] MEDS: LEVOTHYROXINE SODIUM 75 MCG TABLET PO SCH (06:12)
[2020-01-19] MEDS: HEPARIN SOD 5,000 UNIT/0.5 ML VIAL SQ SCH ×3 (06:12→20:34)
[2020-01-19 07:46] LABS: BUN Creatinine Ratio 19.5 (10-20); Calcium 9.3 mg/dl (8.5-10.1); Est GFR (African American) 34.3; Est GFR (Non-African American) 29.6; Magnesium 2.3 mg/dl (1.8-2.4); Potassium 3.7 mmol/L (3.5-5.1)
[2020-01-19] MEDS: cloNIDine HCL 0.1 MG TAB PO SCH ×2 (07:46→20:33)
[2020-01-19] MEDS: FERROUS SULFATE 325 MG TAB PO SCH (07:47)
[2020-01-19] MEDS: ASPIRIN 81 MG ECTAB PO SCH (07:47)
[2020-01-19] MEDS: AMLODIPINE BESYLATE 5 MG TAB PO SCH (07:47)
[2020-01-19] MEDS: ISOSORBIDE MONO EXTENDED REL 30 MG TABCR PO SCH (07:47)
[2020-01-19] MEDS: METOPROLOL TARTRATE 50 MG TAB PO SCH (07:47)
[2020-01-19] MEDS: AMOXICILLIN 500 MG CAP PO SCH ×2 (07:48→20:32)
[2020-01-19] MEDS: CLOPIDOGREL BISULFATE 75 MG TAB PO SCH (07:48)
[2020-01-19] MEDS: FAMOTIDINE 20 MG TAB PO SCH (07:48)
[2020-01-19] MEDS: DOCUSATE SODIUM/SENNA 50/8.6MG TAB PO SCH ×2 (07:52→20:34)
--- NOTE | 2020-01-19 15:41 | Hospitalist Progress Note ---
Date of Service January 19, 2020 Assessment & Plan (1) Encephalopathy: Metabolic encephalopathy vs. Delirium on dementia Complicated UTI with uremia (BUN 100s), JAMES on CKD Blood cultures negative Urine culture grew alpha strep not enterococci Started with intravenous cefepime and there were changed to oral amoxicillin No signs of infection and the patient is clinically much better JAMES on CKD CT abdomen pelvis -no acute process in the abdomen or pelvis, bilateral renal cysts, no evidence for renal hydronephrosis. Baseline creatinine is 2.6 for the last 4 months Received IVF, Cr much improved, BUN down to 35 (on admission 101) Creatinine has improved to 1.56 from that of 4.42 on admission Continue to hold home diuretics, ALON inhibitor Nephrology consulted-appreciate input and recommendation Will await nephrology evaluation for discharge medications Chronic anemia - in the setting of CKD - current hemoglobin within range of 2 disparate lab results drawn this month -Serum iron level, vitamin B12 and folate are normal . -Anemia is likely due to chronic kidney disease HTN, BP currently elevated Stopped IVF, restarted clonidine at lower dose, amlodipine dose increased per nephro ALON inhibitor is on hold right now Chronic diastolic HF as per records, patient on the dry side on admission Hx CAD status post stent Chronic LBBB No evidence of acute fluid overload Hypothyroidism, euthyroid as of current TSH Continue with replacement therapy Hyperglycemia likely prediabetes, hemoglobin A1c of 6.3% December 2019 We will have outpatient follow-up DVT prophylaxis. Heparin subcu DNR as per prior directives as per [facility] staff Patient's daughter/POA (Ms. Kenna Marcum, can be contacted at or . Discussed with the daughter Discharged tomorrow to [facility] Admission and Anticipated Discharge Date Admission Date: January 16, 2020 Subjective The patient was seen and examined in medical telemetry unit She remains pleasantly confused without any acute delirium Denies any abdominal pain, nausea and or vomiting, any chest pain or shortness of breath Review of Systems Review of Systems: All systems reviewed are unremarkable except as noted below Neurologic: Pleasantly confused Physical Exam Physical Exam: Lying in bed comfortably Constitutional: well developed and well nourished; no acute distress and not ill appearing Eyes: PERRL, conjunctivae normal, anicteric sclerae ENMT: external ear and nose normal, oropharynx normal Neck: trachea midline, no thyromegaly Respiratory: normal respiratory effort; no respiratory distress Auscultation: lungs clear to auscultation bilaterally Cardiovascular: Rate/Rhythm: regular rate and regular rhythm Heart Sounds: no murmur Gastrointestinal (Abdomen): Inspection/Auscultation: abdomen normal to inspection and normal bowel sounds Percussion/Palpation: abdomen soft; abdomen nontender Musculoskeletal: No acute arthritis in any joints Neurologic: moves all extremities; no focal motor deficits Lymphatic: no cervical or axillary lymphadenopathy Results & Data Results & Data ([facility]) Vital Signs (Past 12 Hours) Vital Signs Temp Pulse Pulse Resp BP Pulse Ox 01/19/20 15:10 37.1 C 95 H 19 144/82 H 96 01/19/20 11:04 37.0 C 85 16 135/71 97 01/19/20 08:00 117 H 01/19/20 07:03 36.5 C 99 H 16 187/72 H 97 01/19/20 03:56 36.9 C 87 18 178/84 H 98 Laboratory Results [facility] 01/19/20 07:00 Sodium 140 Potassium 3.7 Chloride 110 H Carbon Dioxide 22 BUN 30 H Creatinine 1.56 H Glucose 114 H Calcium 9.3 Medications Administered Current Inpatient Medications Acetaminophen (Tylenol) 650 mg PO Q4 PRN PRN Reason: Fever Or Pain Stop: 02/15/20 02:55 Amlodipine Besylate (Norvasc) 10 mg PO DAILY [facility] Stop: 02/17/20 08:59 Last Admin: 01/19/20 07:47 Dose: 10 mg Documented by: Amoxicillin (Amoxil) 500 mg PO Q12 [facility]; Protocol Stop: 01/28/20 20:59 Last Admin: 01/19/20 07:48 Dose: 500 mg Documented by: Aspirin (Ecotrin Ectab) 81 mg PO DAILY [facility] Stop: 02/15/20 08:59 Last Admin: 01/19/20 07:47 Dose: 81 mg Documented by: Atorvastatin Calcium (Lipitor) 20 mg PO [facility] Stop: 02/15/20 20:59 Last Admin: 01/18/20 21:05 Dose: 20 mg Documented by: Clonidine HCl (Catapres) 0.1 mg PO BID [facility] Stop: 02/16/20 20:59 Last Admin: 01/19/20 07:46 Dose: 0.1 mg Documented by: Clopidogrel Bisulfate (Plavix) 75 mg PO DAILY [facility] Stop: 02/15/20 08:59 Last Admin: 01/19/20 07:48 Dose: 75 mg Documented by: Donepezil HCl (Aricept) 5 mg PO HS [facility] Stop: 02/15/20 20:59 Last Admin: 01/18/20 21:05 Dose: 5 mg Documented by: Famotidine (Pepcid) 20 mg PO DAILY [facility] Stop: 02/15/20 08:59 Last Admin: 01/19/20 07:48 Dose: 20 mg Documented by: Ferrous Sulfate (Feosol) 325 mg PO DAILY [facility] Stop: 02/15/20 08:59 Last Admin: 01/19/20 07:47 Dose: 325 mg Documented by: Heparin Sodium (Porcine) (Heparin Sodium (Porcine)) 5,000 units SQ Q8 [facility] Stop: 02/15/20 05:59 Last Admin: 01/19/20 13:41 Dose: 5,000 units Documented by: Promethazine HCl 12.5 mg/ (Sodium Chloride) 50.5 mls @ 202 mls/hr IV Q6H PRN PRN Reason: Nausea And Vomiting Stop: 02/15/20 02:55 Last Infusion: 01/18/20 05:05 Dose: Infused Documented by: Isosorbide Mononitrate (Imdur Extended Rel) 30 mg PO DAILY [facility] Stop: 02/15/20 08:59 Last Admin: 01/19/20 07:47 Dose: 30 mg Documented by: Levothyroxine Sodium (Synthroid) 75 mcg PO DAILYBB [facility] Stop: 02/15/20 06:29 Last Admin: 01/19/20 06:12 Dose: 75 mcg Documented by: Metoprolol Tartrate (Lopressor) 50 mg PO QAM [facility] Stop: 02/17/20 08:59 Last Admin: 01/19/20 07:47 Dose: 50 mg Documented by: Metoprolol Tartrate (Lopressor) 25 mg PO QPM [facility] Stop: 02/17/20 20:59 Last Admin: 01/18/20 21:05 Dose: 25 mg Documented by: Nitroglycerin (Nitrostat) 0.4 mg SL UD PRN PRN Reason: Chest Pain Stop: 02/15/20 02:55 Senna/Docusate Sodium (Senokot S) 1 tab PO BID [facility] Stop: 02/15/20 08:59 Last Admin: 01/19/20 07:52 Dose: 1 tab Documented by:
[2020-01-19] MEDS: SPIRONOLACTONE 12.5 MG TAB PO SCH (17:08)
[2020-01-19] MEDS: ATORVASTATIN 20 MG TAB PO SCH (20:34)
[2020-01-19] MEDS: DONEPEZIL HCL 5 MG TAB PO SCH (20:34)
--- NOTE | 2020-01-19 20:51 | Nephrology Progress Note ---
Date of Service January 19, 2020 Assessment & Plan (1) Acute kidney injury superimposed on CKD: Patient with acute kidney injury on CKD. Baseline creatinine of 2.6 for the past 4-month. Etiology of worsening renal function is unclear and this is likely in part progressive CKD but may also relate to medications. UA on presentation showed slightly concentrated urine with a lot of hyaline casts which would point towards a prerenal picture. CT abdomen did not show any hydronephrosis. Per notes from Kathleen Soriano, patient's family did not want to pursue dialysis. She has had a lot of lability in her blood pressure with high readings for most of the past day and lower readings earlier this admission: This may stall renal improvement or even worsened renal function -Improving and better than baseline yesterday with hydration and withholding ALON inhibitor and diuretics -Monitor renal function with daily BMP. -Avoid nephrotoxins such as contrast unless lifesaving. -bp meds as below -bmp weekly x 3 at hospital d/c to be ordered by facility -f/u w/ me or PA as telehealth visit in 2-3 weeks unless family opts for more conservative measures -will sign off; pls call if ? (2) Encephalopathy: improved Patient has dementia and could have had delirium which is common in demented patients. We will continue conservative management and monitoring mental status.; Uremia may have had a role (3) Anemia: Due to advanced CKD. Her iron stores are low. -continue daily po iron -hgb above cornelius threshold (4) Hypertension: Clonidine was stopped 01/15 and patient has since had significant rebound hypertension: Agree with holding normal saline and resuming very low-dose clonidine 0.1 mg twice daily blood pressure is controlled. Continue medium dose beta-rosario and amlodipine. Goal blood pressure is systolics in the 140s or 150s for now -Note that as outpatient she was on 50 mg of metoprolol in the morning and 25 mg in the evening>> will increase to 75 mg in AM and 50 mg in evening Continue to hold lisinopril and once weekly metolazone She is on baseline outpatient amlodipine dose increased on 01/16 to 10 mg daily -does not take clonidine as OP and will look to cont to taper cautiously / would stop -resume spironolactone at 12.5 mg daily (5) Discharge planning issues: meds and f/u labs, appts as above Present on Admission?: Yes Admission and Anticipated Discharge Date Admission Date: January 16, 2020 Subjective seen on rounds this am at 0640; care coordinated w/ Dr Owens late this afternoon; pt was withdrawn on eval this am and could not participate in ROS Review of Systems Review of Systems: Unobtainable due to cognitive status Physical Exam Constitutional: well developed, + frail appearing and cooperative; no acute distress Eyes: EOM intact bilaterally ENMT: Ears: no external ear abnormality Nose: no external nose abnormality Mouth: + dry oral mucous membranes and + edentulous Neck: no nuchal rigidity Respiratory: normal respiratory effort; no cough Auscultation: + diminished lung sounds Cardiovascular: RRR, no murmur, no edema Gastrointestinal (Abdomen): Inspection/Auscultation: normal bowel sounds Percussion/Palpation: abdomen soft; abdomen nontender Musculoskeletal: Extremities: + abnormal strength Skin: no rashes, warm and dry Neurologic: hale, limited speech, generalized weakness, no tremor Psychiatric: Orientation: alert and oriented to person Motor Behavior: + psychomotor retardation Affect: + flat affect and + blunted affect Results & Data ([facility]) Vital Signs (Past 12 Hours) Vital Signs Temp Pulse Pulse Resp BP Pulse Ox 01/19/20 18:49 36.6 C 105 H 19 162/87 H 97 01/19/20 16:25 93 H 01/19/20 15:10 37.1 C 95 H 19 144/82 H 96 01/19/20 11:04 37.0 C 85 16 135/71 97 Laboratory Results 01/18/20 06:09 01/19/20 07:00
[2020-01-19] MEDS ORDERED: METOPROLOL TARTRATE 50 MG TAB PO SCH (21:00)
[2020-01-20] MEDS: HEPARIN SOD 5,000 UNIT/0.5 ML VIAL SQ SCH ×2 (05:35→13:32)
[2020-01-20] MEDS: LEVOTHYROXINE SODIUM 75 MCG TABLET PO SCH (05:35)
[2020-01-20] MEDS ORDERED: METOPROLOL TARTRATE 25 MG TAB PO SCH (09:00)
[2020-01-20] MEDS: ASPIRIN 81 MG ECTAB PO SCH (09:34)
[2020-01-20] MEDS: cloNIDine HCL 0.1 MG TAB PO SCH (09:34)
[2020-01-20] MEDS: ISOSORBIDE MONO EXTENDED REL 30 MG TABCR PO SCH (09:34)
[2020-01-20] MEDS: AMOXICILLIN 500 MG CAP PO SCH (09:34)
[2020-01-20] MEDS: FERROUS SULFATE 325 MG TAB PO SCH (09:34)
[2020-01-20] MEDS: SPIRONOLACTONE 12.5 MG TAB PO SCH (09:34)
[2020-01-20] MEDS: AMLODIPINE BESYLATE 5 MG TAB PO SCH (09:35)
[2020-01-20] MEDS: FAMOTIDINE 20 MG TAB PO SCH (09:35)
[2020-01-20] MEDS: CLOPIDOGREL BISULFATE 75 MG TAB PO SCH (09:35)
[2020-01-20] MEDS: DOCUSATE SODIUM/SENNA 50/8.6MG TAB PO SCH (09:35)
[2020-01-20 10:07] LABS: Basophils # (auto) 0.04 K/uL (0-0.2); Basophils % (auto) 0.3 %; Eosinophils # (auto) 0.16 K/uL (0-0.5); Eosinophils % (auto) 1.3 %; Hematocrit (blood only) 35.6 % (37-47); Hemoglobin 12.1 g/dL (12.0-16.0); Immature Granulocytes # (auto) 0.04 K/uL (0.00-0.02); Immature Granulocytes % (auto) 0.3 %; Lymphocytes # (auto) 1.71 K/uL (1.2-3.4); Lymphocytes % (auto) 13.4 %; Mean Corpuscular Hemoglobin 30.7 pg (25-34); Mean Corpuscular Volume 90.4 fL (80-100); Monocytes # (auto) 0.52 K/uL (0.11-0.59); Monocytes % (auto) 4.1 %; Neutrophils # (auto) 10.25 K/uL (1.4-6.5); Neutrophils % (auto) 80.6 %; Platelet Count 335 K/uL (130-400); RDW Standard Deviation 42.9 fL (36.4-46.3); Red Blood Count 3.94 M/uL (4.2-5.4); White Blood Count 12.72 K/uL (4.8-10.8)
[2020-01-20 10:18] LABS: BUN Creatinine Ratio 19.5 (10-20); Creatinine Clr Calc Pharmacy 17.1 ml/min; Est GFR (African American) 26.7; Potassium 3.5 mmol/L (3.5-5.1)
[2020-01-20 10:19] LABS: Calcium 9.2 mg/dl (8.5-10.1)
--- NOTE | 2020-01-20 10:30 | Hospitalist Progress Note ---
Date of Service January 20, 2020 Assessment & Plan (1) Encephalopathy: Metabolic encephalopathy vs. Delirium on dementia Complicated UTI with uremia (BUN 100s), JAMES on CKD Blood cultures negative Urine culture grew alpha strep not enterococci Started with intravenous cefepime and there were changed to oral amoxicillin No signs of infection and the patient is clinically much better Has dementia but no acute delirium JAMES on CKD CT abdomen pelvis -no acute process in the abdomen or pelvis, bilateral renal cysts, no evidence for renal hydronephrosis. Baseline creatinine is 2.6 for the last 4 months Received IVF, Cr much improved, BUN down to 35 (on admission 101) Creatinine has improved to 1.56 from that of 4.42 on admission Continue to hold home diuretics, ALON inhibitor Nephrology consulted-appreciate input and recommendation Will await nephrology evaluation for discharge medications Creatinine went up to 1.92 today Will be advised to supervised fluid intake up around 1500 -2000 mL a day Chronic anemia - in the setting of CKD - current hemoglobin within range of 2 disparate lab results drawn this month -Serum iron level, vitamin B12 and folate are normal . -Anemia is likely due to chronic kidney disease -Hemoglobin stable at 12.1 HTN, BP currently elevated Stopped IVF, restarted clonidine at lower dose, amlodipine dose increased per nephro ALON inhibitor is on hold right now Blood pressure remains upper level of normal ALON inhibitor will not be prescribed on discharge Chronic diastolic HF as per records, patient on the dry side on admission Hx CAD status post stent Chronic LBBB No evidence of acute fluid overload Spironolactone has been started with a very small dose Lasix and/or metolazone will not be given on discharge Hypothyroidism, euthyroid as of current TSH Continue with replacement therapy Hyperglycemia likely prediabetes, hemoglobin A1c of 6.3% December 2019 We will have outpatient follow-up DVT prophylaxis. Heparin subcu DNR as per prior directives as per [facility] staff Patient's daughter/POA (Ms. Kenna Marcum, can be contacted at or . Discussed with the daughter Discharged tomorrow to [facility] Admission and Anticipated Discharge Date Admission Date: January 16, 2020 Subjective The patient was seen and examined in medical telemetry unit She remains pleasantly confused without any acute delirium Denies any abdominal pain, nausea and or vomiting, any chest pain or shortness of breath 01/20/2020 The patient was seen and examined in medical telemetry unit She remains pleasantly confused due to dementia but does not have any acute delirium Denies any acute symptoms Review of Systems Review of Systems: All systems reviewed are unremarkable except as noted below Neurologic: Pleasantly confused Physical Exam Physical Exam: Lying in bed comfortably Constitutional: well developed and well nourished; no acute distress and not ill appearing Eyes: PERRL, conjunctivae normal, anicteric sclerae ENMT: external ear and nose normal, oropharynx normal Neck: trachea midline, no thyromegaly Respiratory: normal respiratory effort; no respiratory distress Auscultation: lungs clear to auscultation bilaterally Cardiovascular: Rate/Rhythm: regular rate and regular rhythm Heart Sounds: no murmur Gastrointestinal (Abdomen): Inspection/Auscultation: abdomen normal to inspection and normal bowel sounds Percussion/Palpation: abdomen soft; abdomen nontender Musculoskeletal: No acute arthritis involving any joints Neurologic: moves all extremities; no focal motor deficits Lymphatic: no cervical or axillary lymphadenopathy Results & Data Results & Data ([facility]) Vital Signs (Past 12 Hours) Vital Signs Temp Pulse Pulse Resp BP BP Pulse Ox 01/20/20 06:47 36.9 C 89 18 178/76 H 98 01/20/20 04:26 36.4 C L 80 18 157/73 H 99 01/19/20 23:00 36.6 C 83 18 167/85 H 97 01/19/20 22:49 80 Laboratory Results Short CBC 01/20/20 Range/Units 09:45 WBC 12.72 H (4.8-10.8) K/uL Hgb 12.1 (12.0-16.0) g/dL Hct 35.6 L (37-47) % Plt Count 335 (130-400) K/uL BMP 01/20/20 09:45 Sodium 139 Potassium 3.5 Chloride 108 H Carbon Dioxide 22 BUN 38 H Creatinine 1.92 H D Glucose 181 H Calcium 9.2 Medications Administered Current Inpatient Medications Acetaminophen (Tylenol) 650 mg PO Q4 PRN PRN Reason: Fever Or Pain Stop: 02/15/20 02:55 Amlodipine Besylate (Norvasc) 10 mg PO DAILY [facility] Stop: 02/17/20 08:59 Last Admin: 01/20/20 09:35 Dose: 10 mg Documented by: Amoxicillin (Amoxil) 500 mg PO Q12 [facility]; Protocol Stop: 01/28/20 20:59 Last Admin: 01/20/20 09:34 Dose: 500 mg Documented by: Aspirin (Ecotrin Ectab) 81 mg PO DAILY [facility] Stop: 02/15/20 08:59 Last Admin: 01/20/20 09:34 Dose: 81 mg Documented by: Atorvastatin Calcium (Lipitor) 20 mg PO HS [facility] Stop: 02/15/20 20:59 Last Admin: 01/19/20 20:34 Dose: 20 mg Documented by: Clonidine HCl (Catapres) 0.1 mg PO BID [facility] Stop: 02/16/20 20:59 Last Admin: 01/20/20 09:34 Dose: 0.1 mg Documented by: Clopidogrel Bisulfate (Plavix) 75 mg PO DAILY [facility] Stop: 02/15/20 08:59 Last Admin: 01/20/20 09:35 Dose: 75 mg Documented by: Donepezil HCl (Aricept) 5 mg PO [facility] Stop: 02/15/20 20:59 Last Admin: 01/19/20 20:34 Dose: 5 mg Documented by: Famotidine (Pepcid) 20 mg PO DAILY [facility] Stop: 02/15/20 08:59 Last Admin: 01/20/20 09:35 Dose: 20 mg Documented by: Ferrous Sulfate (Feosol) 325 mg PO DAILY [facility] Stop: 02/15/20 08:59 Last Admin: 01/20/20 09:34 Dose: 325 mg Documented by: Heparin Sodium (Porcine) (Heparin Sodium (Porcine)) 5,000 units SQ Q8 [facility] Stop: 02/15/20 05:59 Last Admin: 01/20/20 05:35 Dose: 5,000 units Documented by: Promethazine HCl 12.5 mg/ (Sodium Chloride) 50.5 mls @ 202 mls/hr IV Q6H PRN PRN Reason: Nausea And Vomiting Stop: 02/15/20 02:55 Last Infusion: 01/18/20 05:05 Dose: Infused Documented by: Isosorbide Mononitrate (Imdur Extended Rel) 30 mg PO DAILY [facility] Stop: 02/15/20 08:59 Last Admin: 01/20/20 09:34 Dose: 30 mg Documented by: [facility]othyroxine [facility] ([facility]th[facility]) [facility]: 02/15/20 06:29 Last Admin: 01/20/20 05:35 Dose: 75 mcg Documented by: Metoprolol Tartrate (Lopressor) 75 mg PO QAM [facility] Stop: 02/19/20 08:59 Last Admin: 01/20/20 09:35 Dose: 75 mg Documented by: Metoprolol Tartrate (Lopressor) 50 mg PO QPM [facility] Stop: 02/18/20 20:59 Last Admin: 01/19/20 20:34 Dose: 50 mg Documented by: Nitroglycerin (Nitrostat) 0.4 mg UD PRN PRN Reason: Chest Pain Stop: 02/15/20 02:55 Senna/Docusate Sodium (Senokot S) 1 tab PO BID [facility] Stop: 02/15/20 08:59 Last Admin: 01/20/20 09:35 Dose: Not Given Documented by: Spironolactone (Aldactone) 12.5 mg PO DAILY [facility] Stop: 02/18/20 16:59 Last Admin: 01/20/20 09:34 Dose: 12.5 mg Documented by:
--- NOTE | 2020-01-21 11:21 | Discharge Summary ---
Date of Service January 21, 2020 Admission HPI Per Admitting Provider History obtained from patient, ER provider, [facility] staff, and records. Limited history from patient secondary to encephalopathy. Medical history significant for chronic diastolic HF as per records, CAD status post stent , chronic LBBB, history CVA as per records, HTN, CRI (baseline creatinine 2.6 as of 12/22/2019), chronic anemia (baseline hemoglobin 8-11 12/2019), dementia, hypothyroidism, hx parotid tumor Patient noted to have change in mentation over the last few days. Report of visual hallucinations that "someone was out to get her." Outpatient chemistry from 01/13 showed serum sodium 131, serum creatinine noted to be 3.5. No UTI on outpatient urine dipstick as per records. Diuretics, ALON inhibitor, spironolactone held . No dialysis as per discussion between [facility] provider and patient's family . Last night patient noted to have decreased responsiveness, not talking as much with SBP 80s. Patient brought to the ER by EMS for evaluation. Patient unable to answer questions regarding chest pain, cough, S OB, abdominal pain, dysuria symptoms. Medical History as above Surgical History : Appendectomy, cholecystectomy, Family History : Could not be obtained Personal/Social history : longterm resident Admission Exam Per Admitting Provider Physical Exam: GENERAL: Lethargic, no respiratory distress SKIN: Pallor , warm HEENT: pale palpebral conjunctivae, no ptosis, dry buccal mucosa NECK : Supple, no tenderness CHEST : Decreased breath sounds, no tenderness HEART : Bradycardic, no obvious murmurs ABDOMEN: Some distention, nontender EXTREMITIES : Minimal LE swelling, no LE tenderness, no other conspicuous deformities noted NEUROLOGIC : Lethargic, no facial asymmetry, gait and stance not assessed Principal Diagnosis Metabolic encephalopathy secondary to complicated UTI with uremia, JAMES on CKD, chronic diastolic heart failure, hypertension, dementia Discharge Exam Constitutional well developed and well nourished; no acute distress and not ill appearing Eyes PERRL, conjunctivae normal, anicteric sclerae ENMT external ear and nose normal, oropharynx normal Neck trachea midline, no thyromegaly Respiratory normal respiratory effort; no respiratory distress Auscultation: lungs clear to auscultation bilaterally Cardiovascular Rate/Rhythm: regular rate and regular rhythm Heart Sounds: no murmur Gastrointestinal (Abdomen) Inspection/Auscultation: abdomen normal to inspection and normal bowel sounds Percussion/Palpation: abdomen soft; abdomen nontender Neurologic moves all extremities; no focal motor deficits Lymphatic no cervical or axillary lymphadenopathy Discharge Data Allergies Allergy/AdvReac Type Severity Reaction Status Date / Time tramadol Allergy Unknown Verified 01/15/20 23:06 Consultations 01/15/20 23:48 ED Decision to Admit Stat 01/16/20 01:09 Consult Nephrology Routine Ordered Studies 01/15/20 22:21 CT head/brain wo con Stat 01/16/20 00:59 CT abd pelvis wo con Urgent Hospital Course (1) Encephalopathy: Metabolic encephalopathy vs. Delirium on dementia Complicated UTI with uremia (BUN 100s), JAEMS on CKD Blood cultures negative Urine culture grew alpha strep not enterococci Started with intravenous cefepime and there were changed to oral amoxicillin No signs of infection and the patient is clinically much better Has dementia but no acute delirium JAMES on CKD CT abdomen pelvis -no acute process in the abdomen or pelvis, bilateral renal cysts, no evidence for renal hydronephrosis. Baseline creatinine is 2.6 for the last 4 months Received IVF, Cr much improved, BUN down to 35 (on admission 101) Creatinine has improved to 1.56 from that of 4.42 on admission Continue to hold home diuretics, ALON inhibitor Nephrology consulted-appreciate input and recommendation Will await nephrology evaluation for discharge medications Creatinine went up to 1.92 today Will be advised to supervised fluid intake up around 1500 -2000 mL a day Chronic anemia - in the setting of CKD - current hemoglobin within range of 2 disparate lab results drawn this month -Serum iron level, vitamin B12 and folate are normal . -Anemia is likely due to chronic kidney disease -Hemoglobin stable at 12.1 HTN, BP currently elevated Stopped IVF, restarted clonidine at lower dose, amlodipine dose increased per nephro ALON inhibitor is on hold right now Blood pressure remains upper level of normal ALON inhibitor will not be prescribed on discharge Chronic diastolic HF as per records, patient on the dry side on admission Hx CAD status post stent Chronic LBBB No evidence of acute fluid overload Spironolactone has been started with a very small dose Lasix and/or metolazone will not be given on discharge Hypothyroidism, euthyroid as of current TSH Continue with replacement therapy Hyperglycemia likely prediabetes, hemoglobin A1c of 6.3% December 2019 We will have outpatient follow-up DVT prophylaxis. Heparin subcu DNR as per prior directives as per [facility] staff Patient's daughter/POA (Ms. Kenna Marcum, can be contacted at or . Discussed with the daughter Discharged tomorrow to [facility] Total Time Total Time Spent Total Time Spent (In Minutes): 35 minutes Total Time Includes: Examination of the Patient, Discharge Planning, Medication Reconciliation and Communication With Other Providers Discharge Plan Discharge Items Patient Disposition: Transfer Custodial Fac Reason For Visit: ENCEPHALOPATHY Discharge Diagnosis: Metabolic encephalopathy secondary to complicated UTI with uremia, JAMES on CKD, chronic diastolic heart failure, hypertension, dementia Condition on Discharge: Fair Activity: Resume your previous activity Non-emergency contact: Primary Care Provider Call non-emergency contact if: you have any medication questions and your symptoms worsen Follow-up/Referrals: Franklyn Estes [Primary Care Provider] - (Please make an appointment with your primary care provider within 1 week) Diet: Heart Healthy Addtl Attending Provider Instructions: Please take precaution to avoid falls Try to drink about 1500 to 2000 mL of fluid daily Please have a BMP checked in 1 week and send it to the PCP Pending Studies at Discharge: No Stand-Alone Forms: My [facility] Skilled Items Patient informed of condition?: Yes DNR: Yes Discharge Level of Care: Skilled Communicable Disease: No Discharge Prognosis: Stable Lines: None Urinary Catheter: No Medications and DC Order Prescriptions: New amoxicillin 500 mg Capsule 500 mg PO Q12 Qty: 14 RF: 0 clonidine HCl 0.1 mg Tablet 0.1 mg PO BID Qty: 60 RF: 0 amlodipine [Norvasc] 5 mg Tablet 10 mg PO DAILY 30 Days Qty: 60 RF: 0 metoprolol tartrate 50 mg Tablet 50 mg PO QPM Qty: 30 RF: 0 metoprolol tartrate 25 mg Tablet 75 mg PO QAM Qty: 90 RF: 0 spironolactone 25 mg Tablet 12.5 mg PO DAILY Qty: 30 RF: 0 Lactinex 1 million cell tablet,chewable 1 tab PO BID Qty: 30 RF: 0 Continued Antacid 500 Mg Tab 500 mg PO QID PRN (Reason: Acid Reflux) RF: 0 acetaminophen [Tylenol] 325 mg Tablet 650 mg PO Q4 PRN (Reason: Fever Or Pain) RF: 0 atorvastatin 20 mg Tablet 20 mg PO HS RF: 0 donepezil 5 mg Tablet 5 mg PO HS RF: 0 ondansetron HCl [Zofran] 4 mg Tablet 4 mg PO Q6H PRN (Reason: Nausea) RF: 0 isosorbide mononitrate 30 mg tablet extended release 24 hr 30 mg PO DAILY RF: 0 sennosides-docusate sodium [Senna-S] 8.6-50 mg Tablet 1 tab-cap PO BID RF: 0 clopidogrel [Plavix] 75 mg tablet 75 mg PO DAILY RF: 0 levothyroxine 75 mcg tablet 75 mcg PO DAILY RF: 0 famotidine 20 mg Tablet 20 mg PO DAILY RF: 0 calcium carbonate [Tums] 200 mg calcium (500 mg) Tablet,Chewable 400 mg PO Q6 PRN (Reason: Heartburn) RF: 0 aspirin 81 mg tablet,chewable 81 mg PO DAILY RF: 0 ferrous sulfate 325 mg (65 mg iron) tablet,delayed release (DR/EC) 325 mg PO DAILY RF: 0 diclofenac sodium 1 % gel 2 g TOPICAL QID RF: 0 magnesium oxide 400 mg magnesium Tablet 400 mg PO DAILY RF: 0 Discontinued furosemide [Lasix] 40 mg Tablet 40 mg PO DAILY RF: 0 metolazone 2.5 mg tablet 2.5 mg PO WK RF: 0 lisinopril 20 mg tablet 20 mg PO AMHS RF: 0 clonidine HCl [Catapres] 0.3 mg tablet 0.3 mg PO AMPM RF: 0 amlodipine [Norvasc] 5 mg tablet 5 mg PO DAILY RF: 0 spironolactone 25 mg Tablet 25 mg PO DAILY RF: 0 metoprolol tartrate 50 mg tablet 50 mg PO QAM RF: 0 metoprolol tartrate 25 mg tablet 25 mg PO HS RF: 0 Discharge Orders: Discharge Order (Routine); Ordered 01/20/20 Ordered By: Kiesha Owens Admission Data Admit Date/Time: 01/16/20 00:57 Attending Provider: Kiesha Owens Admit Provider: Gerard Dale Primary Care Provider: Franklyn Estes Other Providers: Gerard Dale ; Betsey Reeder ; Mingo Oh ; Reyna Barcenas ; Briana Keller Japheth E. ; Shahrzad Dixon ; Luke Almeida Other Interventions: Discharge Summary Assessment (RN) Last Done: 01/20/20 15:12 DC Date/Time DO NOT enter until pt leaves facility: 01/20/20 16:45
== END 2020-01-20 16:45 | DRG 682 ==
LOC: ED 22:04 → SUATTDRO 01-16 00:57 → 2N 01-16 00:57

== ENCOUNTER 2020-08-12 02:09 | Inpatient (IN) ==
[2020-08-12] MEDS ORDERED: PIPERACILL/TAZOBAC CONSULT ACTIVE PRN (02:31)
[2020-08-12] MEDS ORDERED: VANCOMYCIN CONSULT ACTIVE PRN (02:31)
[2020-08-12] MEDS ORDERED: PIPERACILLIN/TAZOBACTAM 4.5 GM/120 ML BAG IV ONE (02:31)
[2020-08-12] MEDS ORDERED: VANCOMYCIN HCL 1,000 MG in SODIUM CHLORIDE 0.9% 500 ML IV ONE (02:31)
--- NOTE | 2020-08-12 02:36 | Emergency Department Note ---
History of Present Illness General Chief complaint: Shortness of Breath/Dyspnea Stated complaint: SHORT OF BREATH/POSITIVE COVID Time Seen by Provider: 08/12/20 02:11 Source: EMS and old records reviewed Mode of arrival: EMS Limitations: altered mental status History of Present Illness Provider complaint: Increased shortness of breath Onset (ago): unknown This is an 89-year-old female who presents via EMS from [facility] with known coronavirus diagnosed on August 03 and increased shortness of breath. Since her diagnosis patient has required supplemental oxygen via nasal cannula. Alecia bush was not on oxygen prior to this, has no prior history of COPD or asthma. According to half-way records which included outpatient labs and a chest x- ray in the interim she had also developed a right lower lobe infiltrate and had been started on azithromycin. Patient's white blood cell count on August 09 was 5, and her white blood cell count as an outpatient today was 27. Patient had been given dexamethasone and then today was also given Solu-Medrol. Patient has history of dementia and cannot provide any additional information. Patient denies any current pain, denies shortness of breath despite obvious tachypnea. Pt seen during a time of high acuity and national emergency pandemic while wearing PPE. Home Medications Medication Instructions Recorded Confirmed Type acetaminophen [Tylenol] 650 mg PO Q4 PRN MDD 3 GRAM/24 01/15/20 08/12/20 History HOURS aspirin 81 mg PO DAILY 01/15/20 08/12/20 History atorvastatin 20 mg PO HS 01/15/20 08/12/20 History clopidogrel [Plavix] 75 mg PO DAILY 01/15/20 08/12/20 History famotidine 20 mg PO BID 01/15/20 08/12/20 History ferrous sulfate 325 mg PO DAILY 01/15/20 08/12/20 History isosorbide mononitrate 30 mg PO DAILY 01/15/20 08/12/20 History sennosides-docusate sodium 1 tab-cap PO BID 01/15/20 08/12/20 History [Senna-S] calcium carbonate [Tums E-X] 300 mg PO Q6 PRN 01/27/20 08/12/20 History nut.tx,imp.renal function,whey 1 ea PO DAILY 01/27/20 08/12/20 History [Renalcal (whey)] ondansetron HCl 4 mg PO Q6H PRN 01/27/20 08/12/20 History Lactobacillus acidoph-L.bulgar 1 tab PO BID17 08/12/20 08/12/20 History [Lactinex] acetaminophen [Tylenol Extra 500 mg PO TID MDD 3 GRAM/24 HOURS 08/12/20 08/12/20 History Strength] albuterol sulfate 2 puff INHALATION Q6H 08/12/20 08/12/20 History amlodipine 5 mg PO DAILY 08/12/20 08/12/20 History ascorbic acid (vitamin C) [Vitamin 500 mg PO DAILY 08/12/20 08/12/20 History C] azithromycin 250 mg PO DAILY 08/12/20 08/12/20 History cholecalciferol (vitamin D3) 25 mcg PO DAILY 08/12/20 08/12/20 History [Vitamin D3] clonidine HCl 0.1 mg PO AMHS 08/12/20 08/12/20 History dexamethasone 6 mg PO DAILY 08/12/20 08/12/20 History guaifenesin [Guiatuss] 200 mg PO Q4H PRN 08/12/20 08/12/20 History levothyroxine 125 mcg PO DAILYBB 08/12/20 08/12/20 History melatonin 1 mg PO HS 08/12/20 08/12/20 History methylprednisolone sod suc(PF) 40 mg IM ONCE 08/12/20 08/12/20 History metoprolol tartrate See Rx Instructions .ROUTE .COMPLEX 08/12/20 08/12/20 History risperidone 0.25 mg PO BID17 08/12/20 08/12/20 History spironolactone 25 mg PO Q OTHER DAY 08/12/20 08/12/20 History zinc sulfate 220 mg PO BID 08/12/20 08/12/20 History Allergies Allergy/AdvReac Type Severity Reaction Status Date / Time tramadol Allergy Unknown ON WINDY Verified 08/12/20 02:58 [facility] L[facility] Past Med/Surg History Medical History (Updated 08/12/20 @ 23:32 by Delisa Rubio DO) Anemia Hypertension Left bundle branch block (LBBB) Social History Smoking Status: Unknown if ever smoked Preferred Language: [place] Communication Ability: Unable E [employer] Marketing Analyst Required: No Beliefs That Will Affect Care: None Current Living Situation: Assisted Current Living Situation Comment: resident at [facility] Other Information That Helps Us Care for You: No Feels Safe at Home: Yes Safety Concerns: Feels Safe At This Time Assistive Devices: Walker Review of Systems Unobtainable due to cognitive status Physical Exam Vital Signs Vital Signs - 24 hr 08/12/20 02:15 08/12/20 02:17 08/12/20 02:20 Temperature Temperature Source Pulse Rate 96 H 90 95 H Pulse Rate [Finger] Pulse Rate from SpO2 Sensor 96 H 91 H 96 H Pulse Rhythm [Finger] Respiratory Rate 33 H 35 H 37 H Respiratory Effort / Characteristics Blood Pressure 224/99 H 208/91 H Blood Pressure [Right Arm] Blood Pressure Mean 133 105 Blood Pressure Mean [Right Arm] Pulse Oximetry 98 97 97 Oxygen Delivery Method Oxygen Flow Rate Sepsis Recent Fever Within 48 Hours Sepsis New/Unexplained Change in Mental Status Sepsis Action Taken by Nursing 08/12/20 02:27 08/12/20 02:30 08/12/20 02:38 Temperature 37.9 C H Temperature Source Oral Pulse Rate 96 H 92 H Pulse Rate [Finger] 96 H Pulse Rate from SpO2 Sensor 93 H Pulse Rhythm [Finger] Regular Respiratory Rate 24 36 H 24 Respiratory Effort / Characteristics Accessory Muscle Use Short of Breath SOB on Exertion Blood Pressure 208/91 H 198/100 H Blood Pressure [Right Arm] 208/91 H Blood Pressure Mean 130 127 Blood Pressure Mean [Right Arm] 130 Pulse Oximetry 97 98 97 Oxygen Delivery Method Nasal Cannula Nasal Cannula Oxygen Flow Rate 4 4 Sepsis Recent Fever Within 48 Hours Yes Sepsis New/Unexplained Change in Mental Status No Sepsis Action Taken by Nursing No Action Required 08/12/20 02:40 08/12/20 02:50 08/12/20 02:54 Temperature Temperature Source Pulse Rate 92 H 87 Pulse Rate [Finger] Pulse Rate from SpO2 Sensor 92 H 87 Pulse Rhythm [Finger] Respiratory Rate 34 H 31 H 30 H Respiratory Effort / Characteristics Short of Breath SOB on Exertion Blood Pressure Blood Pressure [Right Arm] Blood Pressure Mean Blood Pressure Mean [Right Arm] Pulse Oximetry 96 97 96 Oxygen Delivery Method Nasal Cannula Oxygen Flow Rate 4 Sepsis Recent Fever Within 48 Hours Sepsis New/Unexplained Change in Mental Status Sepsis Action Taken by Nursing 08/12/20 03:00 08/12/20 03:10 08/12/20 03:20 Temperature Temperature Source Pulse Rate 97 H 96 H 95 H Pulse Rate [Finger] Pulse Rate from SpO2 Sensor 97 H 96 H 95 H Pulse Rhythm [Finger] Respiratory Rate 27 H 35 H 35 H Respiratory Effort / Characteristics Blood Pressure Blood Pressure [Right Arm] Blood Pressure Mean Blood Pressure Mean [Right Arm] Pulse Oximetry 94 94 95 Oxygen Delivery Method Oxygen Flow Rate Sepsis Recent Fever Within 48 Hours Sepsis New/Unexplained Change in Mental Status Sepsis Action Taken by Nursing 08/12/20 03:25 08/12/20 03:30 08/12/20 03:40 Temperature Temperature Source Pulse Rate 90 90 92 H Pulse Rate [Finger] Pulse Rate from SpO2 Sensor 91 H 89 Pulse Rhythm [Finger] Respiratory Rate 35 H 32 H 38 H Respiratory Effort / Characteristics Blood Pressure 201/91 H 190/93 H Blood Pressure [Right Arm] Blood Pressure Mean 150 102 Blood Pressure Mean [Right Arm] Pulse Oximetry 94 96 Oxygen Delivery Method Oxygen Flow Rate Sepsis Recent Fever Within 48 Hours Sepsis New/Unexplained Change in Mental Status Sepsis Action Taken by Nursing 08/12/20 03:50 08/12/20 03:54 08/12/20 04:00 Temperature Temperature Source Pulse Rate 85 84 Pulse Rate [Finger] Pulse Rate from SpO2 Sensor Pulse Rhythm [Finger] Respiratory Rate 27 H 26 H 27 H Respiratory Effort / Characteristics Short of Breath SOB on Exertion Blood Pressure 181/66 H Blood Pressure [Right Arm] Blood Pressure Mean 84 Blood Pressure Mean [Right Arm] Pulse Oximetry 96 Oxygen Delivery Method Nasal Cannula Oxygen Flow Rate 4 Sepsis Recent Fever Within 48 Hours Sepsis New/Unexplained Change in Mental Status Sepsis Action Taken by Nursing 08/12/20 04:10 08/12/20 04:20 08/12/20 04:24 Temperature Temperature Source Pulse Rate 77 89 Pulse Rate [Finger] Pulse Rate from SpO2 Sensor 78 88 Pulse Rhythm [Finger] Respiratory Rate 27 H 34 H 30 H Respiratory Effort / Characteristics Short of Breath Blood Pressure Blood Pressure [Right Arm] Blood Pressure Mean Blood Pressure Mean [Right Arm] Pulse Oximetry 97 96 97 Oxygen Delivery Method Nasal Cannula Oxygen Flow Rate 4 Sepsis Recent Fever Within 48 Hours Sepsis New/Unexplained Change in Mental Status Sepsis Action Taken by Nursing 08/12/20 04:30 08/12/20 04:40 08/12/20 04:50 Temperature Temperature Source Pulse Rate 84 82 83 Pulse Rate [Finger] Pulse Rate from SpO2 Sensor 84 82 84 Pulse Rhythm [Finger] Respiratory Rate 28 H 29 H 25 H Respiratory Effort / Characteristics Blood Pressure 176/85 H Blood Pressure [Right Arm] Blood Pressure Mean 102 Blood Pressure Mean [Right Arm] Pulse Oximetry 96 95 97 Oxygen Delivery Method Oxygen Flow Rate Sepsis Recent Fever Within 48 Hours Sepsis New/Unexplained Change in Mental Status Sepsis Action Taken by Nursing 08/12/20 05:00 08/12/20 05:10 08/12/20 05:20 Temperature Temperature Source Pulse Rate 94 H 85 85 Pulse Rate [Finger] Pulse Rate from SpO2 Sensor 94 H 85 86 Pulse Rhythm [Finger] Respiratory Rate 38 H 30 H 29 H Respiratory Effort / Characteristics Blood Pressure 182/92 H Blood Pressure [Right Arm] Blood Pressure Mean 110 Blood Pressure Mean [Right Arm] Pulse Oximetry 97 96 97 Oxygen Delivery Method Oxygen Flow Rate Sepsis Recent Fever Within 48 Hours Sepsis New/Unexplained Change in Mental Status Sepsis Action Taken by Nursing 08/12/20 05:30 08/12/20 05:31 08/12/20 05:40 Temperature Temperature Source Pulse Rate 91 H 93 H 100 H Pulse Rate [Finger] Pulse Rate from SpO2 Sensor 91 H 93 H 100 H Pulse Rhythm [Finger] Respiratory Rate 37 H 40 H 31 H Respiratory Effort / Characteristics Blood Pressure 226/89 H Blood Pressure [Right Arm] Blood Pressure Mean 139 Blood Pressure Mean [Right Arm] Pulse Oximetry 97 97 96 Oxygen Delivery Method Oxygen Flow Rate Sepsis Recent Fever Within 48 Hours Sepsis New/Unexplained Change in Mental Status Sepsis Action Taken by Nursing 08/12/20 05:43 Temperature Temperature Source Pulse Rate Pulse Rate [Finger] Pulse Rate from SpO2 Sensor Pulse Rhythm [Finger] Respiratory Rate Respiratory Effort / Characteristics Short of Breath SOB on Exertion Blood Pressure Blood Pressure [Right Arm] Blood Pressure Mean Blood Pressure Mean [Right Arm] Pulse Oximetry 96 Oxygen Delivery Method Oxygen Flow Rate 4 Sepsis Recent Fever Within 48 Hours Sepsis New/Unexplained Change in Mental Status Sepsis Action Taken by Nursing GENERAL: alert, uncomfortable appearing, well nourished, moderate distress, non- toxic EYE EXAM: normal conjunctiva, PERRL and EOM's grossly intact OROPHARYNX: no exudate, no erythema, lips, buccal mucosa, and tongue normal and mucous membranes are moist NECK: supple, no nuchal rigidity, no adenopathy, non-tender LUNGS: Increased work of breathing, tachypnea, normal chest wall mechanics, bilateral rales and rhonchi, no wheezing HEART: no murmurs, S1 normal and S2 normal ABDOMEN: abdomen soft, non-tender, normo-active bowel sounds, no masses, no rebound or guarding. BACK: Back is symmetrical on inspection and there is no deformity, no midline tenderness, no CVA tenderness. SKIN: no rashes and no bruising UPPER EXTREMITIES: upper extremities are grossly normal. FROM, nml pulses b/l. LOWER EXTREMITIES: No pitting edema. FROM, nml pulses b/l. NEURO EXAM: Normal sensorium, cranial nerves II-XII grossly intact, normal speech, no gross weakness of arms, no gross weakness of legs. Gross sensation intact. Course Course 0230: Discussed with Kenna pt's daughter. Updated on condition. DNR/DNI. Confirms no prior pulmonary history and no prior use of oxygen or breathing treatments. 0445: Patient still mildly tachypneic although holding saturations on oxygen via nasal cannula. 050: Discussed with Dr. Urbina, [facility] hospitalist. Administered Medications Atorvastatin Calcium (Atorvastatin 20 Mg Tab) 20 mg PO HS@1999 [facility] Stop: 09/11/20 19:59 Last Admin: 08/12/20 19:53 Dose: 20 mg Documented by: [id number] Clonidine HCl (Clonidine Hcl 0.1 Mg Tab) 0.1 mg PO AMHS@ [facility] Stop: 09/11/20 19:59 Last Admin: 08/12/20 19:52 Dose: 0.1 mg Documented by: [id number] Famotidine (Famotidine 20 Mg Tab) 20 mg PO BID@0800 [facility] Stop: 09/11/20 19:59 Last Admin: 08/12/20 19:53 Dose: 20 mg Documented by: [id number] Guaifenesin (Guaifenesin 600 Mg Tabcr) 600 mg PO Q12H [facility] Stop: 09/11/20 19:59 Last Admin: 08/12/20 19:53 Dose: 600 mg Documented by: [id number] Hydralazine HCl (Hydralazine Hcl 20 Mg/Ml Vial) 10 mg IV Q6H PRN PRN Reason: for SBP above 170 Stop: 09/11/20 16:11 Last Admin: 08/12/20 17:38 Dose: 10 mg Documented by: [id number] Doxycycline Hyclate 100 mg/ (Dextrose) 110 mls @ 50 mls/hr IV Q12H WILDA; Protocol Stop: 08/17/20 09:59 Last Infusion: 08/12/20 22:33 Dose: 0 mls/hr Documented by: [id number] Admin: 08/12/20 20:09 Dose: 50 mls/hr Documented by: [id number] Infusion: 08/12/20 13:34 Dose: 0 mls/hr Documented by: [id number] Admin: 08/12/20 11:16 Dose: 50 mls/hr Documented by: [id number] Piperacillin Sod/Tazobactam (Sod 3.375 gm/ Dextrose) 115 mls @ 28.75 mls/hr IV Q8H WILDA; Protocol Stop: 08/19/20 09:59 Last Infusion: 08/12/20 20:00 Dose: 0 mls/hr Documented by: [id number] Admin: 08/12/20 15:59 Dose: 28.8 mls/hr Documented by: [id number] Infusion: 08/12/20 15:15 Dose: 0 mls/hr Documented by: [id number] Admin: 08/12/20 11:15 Dose: 28.8 mls/hr Documented by: [id number] Insulin Aspart (Insulin Aspart 100 Units/Ml 3 Ml Pen) 0 units SC ACHS [facility] Stop: 09/11/20 08:59 Last Admin: 08/12/20 21:05 Dose: Not Given Documented by: [id number] Cosigned by: [id number] Admin: 08/12/20 16:10 Dose: 1 units Documented by: [id number] Cosigned by: [id number] Admin: 08/12/20 12:24 Dose: Not Given Documented by: [id number] Admin: 08/12/20 11:15 Dose: 2 units Documented by: [id number] Cosigned by: [id number] Levalbuterol HCl (Levalbuterol Tartrate 15 Gm Hfa.Aer.Ad) 2 puffs INH QIDR [facility] Stop: 09/11/20 10:59 Last Admin: 08/12/20 21:00 Dose: 2 puffs Documented by: [id number] Admin: 08/12/20 16:08 Dose: 2 puffs Documented by: [id number] Admin: 08/12/20 11:59 Dose: 2 puffs Documented by: [id number] Levothyroxine Sodium (Levothyroxine Sodium 125 Mcg Tablet) 125 mcg PO DAILYBB [facility] Stop: 09/11/20 08:59 Last Admin: 08/12/20 11:24 Dose: 125 mcg Documented by: [id number] Risperidone (Risperidone 0.5 Mg Tablet) 0.25 mg PO BID@0800,1600 [facility] Stop: 09/11/20 15:59 Last Admin: 08/12/20 15:50 Dose: 0.25 mg Documented by: [id number] Senna/Docusate Sodium (Docusate Sodium/Senna 50/8.6mg Tab) 1 tab PO BID@0800,2000 WILDA Stop: 09/11/20 19:59 Last Admin: 08/12/20 19:53 Dose: 1 tab Documented by: [id number] Sodium Chloride (Sodium Chloride 0.9% 10ml Flush) 30 ml IV Q24H WILDA Stop: 08/16/20 09:01 Last Admin: 08/12/20 14:29 Dose: 30 ml Documented by: [id number] Discontinued Medications Acetaminophen (Acetaminophen 325 Mg Tab) 650 mg PO NOW STA Stop: 08/12/20 06:13 Last Admin: 08/12/20 06:32 Dose: 650 mg Documented by: [id number] Acetaminophen (Acetaminophen 325 Mg Tab) Confirm Administered Dose 650 mg .ROUTE .STK-MED ONE Stop: 08/12/20 06:23 Last Admin: 08/12/20 06:25 Dose: Not Given Documented by: [id number] Albuterol (Albuterol Hfa 8 Gm Inhaler) 2 puffs INH NOW STA Stop: 08/12/20 05:30 Last Admin: 08/12/20 05:41 Dose: 2 puffs Documented by: [id number] Amlodipine Besylate (Amlodipine Besylate 5 Mg Tab) 5 mg PO DAILY WILDA Stop: 09/11/20 08:59 Last Admin: 08/12/20 11:24 Dose: 5 mg Documented by: [id number] Aspirin (Aspirin 81 Mg Ectab) 81 mg PO DAILY WILDA Stop: 09/11/20 08:59 Last Admin: 08/12/20 11:24 Dose: 81 mg Documented by: [id number] Clonidine HCl (Clonidine Hcl 0.1 Mg Tab) 0.1 mg PO NOW STA Stop: 08/12/20 06:27 Last Admin: 08/12/20 06:31 Dose: 0.1 mg Documented by: [id number] Clonidine HCl (Clonidine Hcl 0.1 Mg Tab) Confirm Administered Dose 0.1 mg .ROUTE .STK-MED ONE Stop: 08/12/20 06:23 Last Admin: 08/12/20 06:25 Dose: Not Given Documented by: [id number] Clonidine HCl (Clonidine Hcl 0.1 Mg Tab) 0.1 mg PO AMHS WILDA Stop: 09/11/20 08:59 Last Admin: 08/12/20 11:24 Dose: 0.1 mg Documented by: [id number] Clopidogrel Bisulfate (Clopidogrel Bisulfate 75 Mg Tab) 75 mg PO DAILY WILDA Stop: 09/11/20 08:59 Last Admin: 08/12/20 11:24 Dose: 75 mg Documented by: [id number] Dexamethasone (Dexamethasone Sod Inj 4 Mg/Ml Vial) 6 mg IV NOW STA Stop: 08/12/20 05:21 Last Admin: 08/12/20 06:32 Dose: 6 mg Documented by: [id number] Famotidine (Famotidine 20 Mg Tab) 20 mg PO BID WILDA Stop: 09/11/20 08:59 Last Admin: 08/12/20 11:25 Dose: 20 mg Documented by: [id number] Ferrous Sulfate (Ferrous Sulfate 325 Mg Tab) 325 mg PO DAILY WILDA Stop: 09/11/20 08:59 Last Admin: 08/12/20 11:24 Dose: 325 mg Documented by: [id number] Furosemide (Furosemide 40 Mg/4 Ml Vial) Confirm Administered Dose 40 mg IV .STK- MED ONE Stop: 08/12/20 12:17 Last Admin: 08/12/20 12:24 Dose: Not Given Documented by: [id number] Heparin Sodium (Porcine) (Heparin Sod 5,000 Unit/0.5 Ml Vial) 5,000 units SQ Q8 WILDA Stop: 09/11/20 13:59 Last Admin: 08/12/20 13:33 Dose: 5,000 units Documented by: [id number] Piperacillin Sod/Tazobactam Sod (Zosyn) 4.5 gm in 120 mls @ 240 mls/hr IV NOW ONE Stop: 08/12/20 03:00 Last Infusion: 08/12/20 03:50 Dose: 0 mls/hr Documented by: [id number] Admin: 08/12/20 03:18 Dose: 240 mls/hr Documented by: [id number] Vancomycin HCl 1,000 mg/ (Sodium Chloride) 520 mls @ 200 mls/hr IV NOW ONE Stop: 08/12/20 05:00 Last Infusion: 08/12/20 07:42 Dose: 0 mls/hr Documented by: [id number] Admin: 08/12/20 04:57 Dose: 200 mls/hr Documented by: [id number] Sodium Chloride (Nss 1000ml) 1,000 mls @ 125 mls/hr IV .Q8H WILDA Stop: 09/11/20 03:59 Last Infusion: 08/12/20 07:55 Dose: 0 mls/hr Documented by: [id number] Admin: 08/12/20 04:08 Dose: 125 mls/hr Documented by: [id number] Acetaminophen (Ofirmev) 1,000 mg in 100 mls @ 400 mls/hr IV NOW STA Stop: 08/12/20 05:32 Last Admin: 08/12/20 06:21 Dose: Not Given Documented by: [id number] Lactated Ringer's (Lr) 1,000 mls @ 500 mls/hr IV .Q2H ONE Stop: 08/12/20 08:29 Last Infusion: 08/12/20 09:52 Dose: 0 mls/hr Documented by: [id number] Admin: 08/12/20 07:52 Dose: 500 mls/hr Documented by: [id number] Lactated Ringer's (Lr) 1,000 mls @ 150 mls/hr IV .Q6H40M WILDA Stop: 08/12/20 14:59 Last Infusion: 08/12/20 12:28 Dose: 0 mls/hr Documented by: [id number] Admin: 08/12/20 11:12 Dose: 150 mls/hr Documented by: [id number] Remdesivir 200 mg/ Sodium (Chloride) 250 mls @ 125 mls/hr IV ONE STA; Protocol Stop: 08/12/20 11:21 Last Infusion: 08/12/20 14:29 Dose: 0 mls/hr Documented by: [id number] Admin: 08/12/20 12:07 Dose: 125 mls/hr Documented by: [id number] Furosemide 40 mg/ Syringe 4 mls @ 4 mls/min IV ONE ONE Stop: 08/12/20 12:01 Last Admin: 08/12/20 12:24 Dose: 4 mls/min Documented by: [id number] Furosemide 20 mg/ Syringe 2 mls @ 4 mls/min IV 2000 ONE Stop: 08/12/20 20:01 Last Admin: 08/12/20 19:54 Dose: 4 mls/min Documented by: [id number] Insulin Glargine (Insulin Glargine Solostar 100 Units/Ml 3 Ml Pen) 10 units SC NOW STA Stop: 08/12/20 05:35 Last Admin: 08/12/20 06:41 Dose: 10 units Documented by: [id number] Cosigned by: [id number] Insulin Glargine (Insulin Glargine Solostar 100 Units/Ml 3 Ml Pen) 25 units SC NOW ONE Stop: 08/12/20 10:31 Last Admin: 08/12/20 11:15 Dose: 25 units Documented by: [id number] Cosigned by: [id number] Insulin Human NPH (Insulin Human Nph) 25 units SC NOW ONE Stop: 08/12/20 10:01 Last Admin: 08/12/20 11:15 Dose: 25 units Documented by: [id number] Cosigned by: [id number] Isosorbide Mononitrate (Isosorbide Vernon Extended Rel 30 Mg Tabcr) 30 mg PO DAILY WILDA Stop: 09/11/20 08:59 Last Admin: 08/12/20 11:25 Dose: 30 mg Documented by: [id number] Labetalol HCl (Labetalol Hcl Iv 5 Mg/Ml 20ml) 10 mg IV NOW STA Stop: 08/12/20 03:54 Last Admin: 08/12/20 04:08 Dose: 10 mg Documented by: [id number] Cosigned by: [id number] Labetalol HCl (Labetalol Hcl Iv 5 Mg/Ml 20ml) 10 mg IV NOW STA Stop: 08/12/20 06:13 Last Admin: 08/12/20 06:41 Dose: 10 mg Documented by: [id number] Cosigned by: [id number] Labetalol HCl (Labetalol Hcl Iv 5 Mg/Ml 20ml) Confirm Administered Dose 5 mg IV .STK-MED ONE Stop: 08/12/20 06:24 Last Admin: 08/12/20 06:26 Dose: Not Given Documented by: [id number] Metoprolol Tartrate (Metoprolol Tartrate 25 Mg Tab) 75 mg PO QAM [facility] Stop: 09/11/20 08:59 Last Admin: 08/12/20 11:25 Dose: 75 mg Documented by: [id number] Metoprolol Tartrate (Metoprolol Tartrate 25 Mg Tab) 50 mg PO QPM@2000 [facility] Stop: 09/11/20 19:59 Last Admin: 08/12/20 19:53 Dose: 50 mg Documented by: [id number] Miscellaneous (Patient's Height And/Or Weight Needed) 1 ea N/A Q15M [facility] Stop: 08/12/20 11:30 Last Admin: 08/12/20 11:34 Dose: 1 ea Documented by: [id number] Admin: 08/12/20 11:34 Dose: 1 ea Documented by: [id number] Admin: 08/12/20 11:34 Dose: 1 ea Documented by: [id number] Admin: 08/12/20 11:34 Dose: 1 ea Documented by: [id number] Admin: 08/12/20 11:34 Dose: 1 ea Documented by: [id number] Admin: 08/12/20 11:34 Dose: 1 ea Documented by: [id number] Admin: 08/12/20 11:33 Dose: 1 ea Documented by: [id number] Admin: 08/12/20 11:33 Dose: 1 ea Documented by: [id number] Admin: 08/12/20 11:21 Dose: 1 ea Documented by: [id number] Risperidone (Risperidone 0.5 Mg Tablet) 0.25 mg PO BID17 [facility] Stop: 09/11/20 08:59 Last Admin: 08/12/20 11:23 Dose: 0.25 mg Documented by: [id number] Senna/Docusate Sodium (Docusate Sodium/Senna 50/8.6mg Tab) 1 tab PO BID [facility] Stop: 09/11/20 08:59 Last Admin: 08/12/20 11:25 Dose: 1 tab Documented by: [id number] Critical Care Time Critical Care Time: Yes Total Critical Care Time: 37 Critical care of 37 min performed to assess and manage high likelihood of life- threatening sepsis, involving labs and imaging performed with assessment to evaluate sepsis diagnosis with frequent reassessment. This time includes bedside time, treatment discussions with patient/family/consultants, documentati on time and excludes procedure time. Medical Decision Making Differential Diagnosis Differential diagnoses includes but is not limited to pneumonia, bronchitis, COPD/Asthma exacerbation, pneumothorax, pulmonary embolism, congestive heart failure, acute coronary syndrome Medical Records Attestation: I reviewed the patient's medical records. Home Medications Current Medication List: was personally reviewed by me Laboratory Data Attestation: I reviewed the patient's lab results. Result diagrams: 08/12/20 02:25 08/12/20 02:25 Lab Results 08/12/20 08/12/20 08/12/20 Range/Units 02:23 02:25 02:25 WBC 21.45 H (4.8-10.8) K/uL RBC 3.68 L (4.2-5.4) M/uL Hgb 11.0 L (12.0-16.0) g/dL Hct 32.3 L (37-47) % MCV 87.8 (80-100) fL MCH 29.9 (25-34) pg MCHC 34.1 (32-36) g/dL RDW Std Deviation 48.3 H (36.4-46.3) fL RDW Coeff of Alhaji 14.9 H (11.5-14.5) % Plt Count 251 (130-400) K/uL MPV 10.1 (7.4-10.4) fL Immature Gran % (Auto) 2.0 % Neut % (Auto) 91.1 % Lymph % (Auto) 3.6 % Vernon % (Auto) 3.3 % Eos % (Auto) 0.0 % Baso % (Auto) 0.0 % Neut # (Auto) 19.53 H (1.4-6.5) K/uL Lymph # (Auto) 0.77 L (1.2-3.4) K/uL Vernon # (Auto) 0.71 H (0.11-0.59) K/uL Eos # (Auto) 0.00 (0-0.5) K/uL Baso # (Auto) 0.01 (0-0.2) K/uL Immature Gran # (Auto) 0.43 H (0.00-0.02) K/uL Echinocytes 1+ PT 10.4 (9.0-12.0) Seconds INR 1.0 (0.9-1.1) APTT 34.5 H (21.0-31.0) Seconds PTT Ratio 1.2 ABG pH (7.35-7.45) ABG pCO2 (35-46) mmHg ABG pO2 (80-95) mmHg ABG HCO3 (19-24) mmol/L ABG O2 Saturation (90-95) % ABG Base Excess (-9-1.8) mEq/L Gregory Test (Pos) Barometric Pressure mm/Hg Oxygen Given Sodium (136-145) mmol/L Potassium (3.5-5.1) mmol/L Chloride (98-107) mmol/L Carbon Dioxide (21-32) mmol/L Anion Gap (3-11) BUN (7-18) mg/dl Creatinine (0.6-1.2) mg/dl Est Cr Clr Drug Dosing Est GFR ( Amer) Est GFR (Non-Af Amer) BUN/Creatinine Ratio (10-20) Glucose (70-99) mg/dl Estimat Average Glucose mg/dl Hemoglobin A1c (4.5-5.6) % Lactate (0.4-2.0) mmol/L Calcium (8.5-10.1) mg/dl Magnesium (1.8-2.4) mg/dl Total Bilirubin (0.2-1) mg/dl AST (15-37) U/L ALT (12-78) U/L Alkaline Phosphatase (45-117) U/L Troponin I (0-0.045) ng/ml Total Protein (6.4-8.2) gm/dl Albumin (3.4-5.0) gm/dl Globulin (2.5-4.0) gm/dl Albumin/Globulin Ratio (0.9-2) Procalcitonin (0-0.5) ng/ml TSH (0.300-4.500) uIu/ml Specimen Hemolysis Influ A Molecular Assay Negative (Negative) Influ B Molecular Assay Negative (Negative) Bld Cult Staph aureus PCR (Negative) Blood Culture MRSA PCR (Negative) 08/12/20 08/12/20 08/12/20 Range/Units 02:25 02:25 02:25 WBC (4.8-10.8) K/uL RBC (4.2-5.4) M/uL Hgb (12.0-16.0) g/dL Hct (37-47) % MCV (80-100) fL MCH (25-34) pg MCHC (32-36) g/dL RDW Std Deviation (36.4-46.3) fL RDW Coeff of Alhaji (11.5-14.5) % Plt Count (130-400) K/uL MPV (7.4-10.4) fL Immature Gran % (Auto) % Neut % (Auto) % Lymph % (Auto) % Vernon % (Auto) % Eos % (Auto) % Baso % (Auto) % Neut # (Auto) (1.4-6.5) K/uL Lymph # (Auto) (1.2-3.4) K/uL Vernon # (Auto) (0.11-0.59) K/uL Eos # (Auto) (0-0.5) K/uL Baso # (Auto) (0-0.2) K/uL Immature Gran # (Auto) (0.00-0.02) K/uL Echinocytes PT (9.0-12.0) Seconds INR (0.9-1.1) APTT (21.0-31.0) Seconds PTT Ratio ABG pH (7.35-7.45) ABG pCO2 (35-46) mmHg ABG pO2 (80-95) mmHg ABG HCO3 (19-24) mmol/L ABG O2 Saturation (90-95) % ABG Base Excess (-9-1.8) mEq/L Gregory Test (Pos) Barometric Pressure mm/Hg Oxygen Given Sodium 136 (136-145) mmol/L Potassium 4.3 (3.5-5.1) mmol/L Chloride 108 H (98-107) mmol/L Carbon Dioxide 20 L (21-32) mmol/L Anion Gap 8.0 (3-11) BUN 46 H (7-18) mg/dl Creatinine 1.48 H (0.6-1.2) mg/dl Est Cr Clr Drug Dosing Not Reportable Est GFR ( Amer) 36.3 Est GFR (Non-Af Amer) 31.3 BUN/Creatinine Ratio 31.0 H (10-20) Glucose 195 H (70-99) mg/dl Estimat Average Glucose 137 mg/dl Hemoglobin A1c 6.4 H (4.5-5.6) % Lactate (0.4-2.0) mmol/L Calcium 8.9 (8.5-10.1) mg/dl Magnesium 2.0 (1.8-2.4) mg/dl Total Bilirubin 1.2 H (0.2-1) mg/dl AST 31 (15-37) U/L ALT 38 (12-78) U/L Alkaline Phosphatase 107 (45-117) U/L Troponin I 0.060 H* (0-0.045) ng/ml Total Protein 7.3 (6.4-8.2) gm/dl Albumin 2.7 L (3.4-5.0) gm/dl Globulin 4.6 H (2.5-4.0) gm/dl Albumin/Globulin Ratio 0.6 L (0.9-2) Procalcitonin 8.12 H (0-0.5) ng/ml TSH (0.300-4.500) uIu/ml Specimen Hemolysis Influ A Molecular Assay (Negative) Influ B Molecular Assay (Negative) Bld Cult Staph aureus PCR (Negative) Blood Culture MRSA PCR (Negative) 08/12/20 08/12/20 08/12/20 Range/Units 03:11 05:07 05:18 WBC (4.8-10.8) K/uL RBC (4.2-5.4) M/uL Hgb (12.0-16.0) g/dL Hct (37-47) % MCV (80-100) fL MCH (25-34) pg MCHC (32-36) g/dL RDW Std Deviation (36.4-46.3) fL RDW Coeff of Alhaji (11.5-14.5) % Plt Count (130-400) K/uL MPV (7.4-10.4) fL Immature Gran % (Auto) % Neut % (Auto) % Lymph % (Auto) % Vernon % (Auto) % Eos % (Auto) % Baso % (Auto) % Neut # (Auto) (1.4-6.5) K/uL Lymph # (Auto) (1.2-3.4) K/uL Vernon # (Auto) (0.11-0.59) K/uL Eos # (Auto) (0-0.5) K/uL Baso # (Auto) (0-0.2) K/uL Immature Gran # (Auto) (0.00-0.02) K/uL Echinocytes PT (9.0-12.0) Seconds INR (0.9-1.1) APTT (21.0-31.0) Seconds PTT Ratio ABG pH (7.35-7.45) ABG pCO2 (35-46) mmHg ABG pO2 (80-95) mmHg ABG HCO3 (19-24) mmol/L ABG O2 Saturation (90-95) % ABG Base Excess (-9-1.8) mEq/L Gregory Test (Pos) Barometric Pressure mm/Hg Oxygen Given Sodium (136-145) mmol/L Potassium (3.5-5.1) mmol/L Chloride (98-107) mmol/L Carbon Dioxide (21-32) mmol/L Anion Gap (3-11) BUN (7-18) mg/dl Creatinine (0.6-1.2) mg/dl Est Cr Clr Drug Dosing Est GFR ( Amer) Est GFR (Non-Af Amer) BUN/Creatinine Ratio (10-20) Glucose (70-99) mg/dl Estimat Average Glucose mg/dl Hemoglobin A1c (4.5-5.6) % Lactate 2.7 H* 3.0 H* (0.4-2.0) mmol/L Calcium (8.5-10.1) mg/dl Magnesium (1.8-2.4) mg/dl Total Bilirubin (0.2-1) mg/dl AST (15-37) U/L ALT (12-78) U/L Alkaline Phosphatase (45-117) U/L Troponin I (0-0.045) ng/ml Total Protein (6.4-8.2) gm/dl Albumin (3.4-5.0) gm/dl Globulin (2.5-4.0) gm/dl Albumin/Globulin Ratio (0.9-2) Procalcitonin (0-0.5) ng/ml TSH (0.300-4.500) uIu/ml Specimen Hemolysis Influ A Molecular Assay (Negative) Influ B Molecular Assay (Negative) Bld Cult Staph aureus PCR Positive A (Negative) Blood Culture MRSA PCR Positive A* (Negative) 08/12/20 08/12/20 Range/Units 06:06 06:06 WBC (4.8-10.8) K/uL RBC (4.2-5.4) M/uL Hgb (12.0-16.0) g/dL Hct (37-47) % MCV (80-100) fL MCH (25-34) pg MCHC (32-36) g/dL RDW Std Deviation (36.4-46.3) fL RDW Coeff of Alhaji (11.5-14.5) % Plt Count (130-400) K/uL MPV (7.4-10.4) fL Immature Gran % (Auto) % Neut % (Auto) % Lymph % (Auto) % Vernon % (Auto) % Eos % (Auto) % Baso % (Auto) % Neut # (Auto) (1.4-6.5) K/uL Lymph # (Auto) (1.2-3.4) K/uL Vernon # (Auto) (0.11-0.59) K/uL Eos # (Auto) (0-0.5) K/uL Baso # (Auto) (0-0.2) K/uL Immature Gran # (Auto) (0.00-0.02) K/uL Echinocytes PT (9.0-12.0) Seconds INR (0.9-1.1) APTT (21.0-31.0) Seconds PTT Ratio ABG pH 7.47 H (7.35-7.45) ABG pCO2 26 L (35-46) mmHg ABG pO2 95 (80-95) mmHg ABG HCO3 18 L (19-24) mmol/L ABG O2 Saturation 97.2 H (90-95) % ABG Base Excess -4.7 (-9-1.8) mEq/L Gregory Test Pos (Pos) Barometric Pressure 743.5 mm/Hg Oxygen Given 4 L Sodium (136-145) mmol/L Potassium (3.5-5.1) mmol/L Chloride (98-107) mmol/L Carbon Dioxide (21-32) mmol/L Anion Gap (3-11) BUN (7-18) mg/dl Creatinine (0.6-1.2) mg/dl Est Cr Clr Drug Dosing Est GFR ( Amer) Est GFR (Non-Af Amer) BUN/Creatinine Ratio (10-20) Glucose (70-99) mg/dl Estimat Average Glucose mg/dl Hemoglobin A1c (4.5-5.6) % Lactate (0.4-2.0) mmol/L Calcium (8.5-10.1) mg/dl Magnesium (1.8-2.4) mg/dl Total Bilirubin (0.2-1) mg/dl AST (15-37) U/L ALT (12-78) U/L Alkaline Phosphatase (45-117) U/L Troponin I 0.069 H* (0-0.045) ng/ml Total Protein (6.4-8.2) gm/dl Albumin (3.4-5.0) gm/dl Globulin (2.5-4.0) gm/dl Albumin/Globulin Ratio (0.9-2) Procalcitonin (0-0.5) ng/ml TSH 0.210 L (0.300-4.500) uIu/ml Specimen Hemolysis Influ A Molecular Assay (Negative) Influ B Molecular Assay (Negative) Bld Cult Staph aureus PCR (Negative) Blood Culture MRSA PCR (Negative) Imaging Data My Impression: X-ray: I interpreted the following studies. Chest: A single view study of the chest was reviewed and was negative for cardiomegaly,effusion, pulmonary edema, or wide mediastinum. There does appear to be a right lower lobe infiltrate compared to prior study. ECG Data Attestation: I personally reviewed and interpreted this ECG as follows: Indication: + SOB/dyspnea Rate (beats per minute): 93 Rhythm: + normal sinus ECG Intervals/blocks: + Left bundle branch block ECG [place]: + Normal ECG ST segments: + Nonspecific ST abnormalities Blood Pressure Blood Pressure Findings: Elevated blood pressure Blood Pressure Disposition: further management by hospitalist [facility] Narrative This is an elderly demented female from a local half-way facility who presents due to worsening tachypnea in the setting of known coronavirus. Patient has been on supplemental oxygen at the facility, has already been given dexamethasone, and had outpatient labs and chest x-ray. Outpatient chest x-ray per half-way records is suspicious for a right lower lobe infiltrate in addition so she was started on azithromycin. Patient presents tachypneic, however is holding oxygen saturations on her usual supplemental oxygen. Outpatient labs from earlier today per half-way records show a new significant elevation of her white blood cell count to 27. Patient was given additional dose of steroids today, however this was a significant jump compared to 2 days prior when her WBC count was 5. Due to worsening condition, patient s tarted as a likely sepsis evaluation and I contacted the patient's daughter to update her on the condition and confirm CODE STATUS. She does confirm that the patient is DNR/DNI. Patient's curb 65 score is 4 points. I am most suspicious that patient is septic from a secondary bacterial pneumonia on top of the respiratory distress she is already experiencing from having coronavirus. Given her advanced age and fragile state, I did discuss with the patient's daughter she is critically ill and may not have a good outcome. We will plan on admitting the patient to the hospital. Cultures are pending. Patient found to have an elevated lactic acid and elevated procalcitonin. Patient's troponin was elevated however appears chronically elevated and the level today was improved compared to prior. Patient's WBC count today at 21. H&H stable, mild JAMES noted. Patient started on maintenance IV fluids due to hypertension and initial consideration in addition for congestive heart failure given bilateral rales and rhonchi, in a patient with known coronary artery disease status post 2 stents. Patient started on broad-spectrum antibiotics including vancomycin and Zosyn as given the right lower lobe infiltrate and her age, consideration was also for possible aspiration. Patient otherwise remained hemodynamically stable although tachypneic in the emergency room. We did not initiate any additional BiPAP therapy to minimize the aerosolization of the virus in the room. Patient continues to deny any pain or discomfort, denied feeling short of breath despite obvious increased work of breathing and tachypnea. Discussed the case with the hospitalist, who will call and update the daughter again. An order was placed for continuous cardiac monitoring. The monitor shows a rate of _92_ with _normal sinus_ rhythm. Impression & Plan Sepsis, Pneumonia, COVID-19, Elevated troponin, Dementia, Elevated procalcitonin, Weakness, Acute hypoxemic respiratory failure Discharge Plan Visit Data Chief Complaint: Shortness of Breath/Dyspnea Stated Complaint: SHORT OF BREATH/POSITIVE COVID ED Provider: Delisa Rubio Discharge Problem: Sepsis, Pneumonia, COVID-19, Elevated troponin, Dementia, Elevated procalcitonin, Weakness, Acute hypoxemic respiratory failure Patient Disposition: Admitted As Inpatient Discharge Instructions Interventions: ED Discharge Assessment Last Done: 08/12/20 08:17 Discharge Problem: Sepsis Qualifiers: Sepsis type: sepsis due to unspecified organism Sepsis acute organ dysfunction status: with acute organ dysfunction Severe sepsis acute organ dysfunction type: acute respiratory failure Acute respiratory failure type: with hypoxia Severe sepsis shock status: without septic shock Qualified Code(s): A41.9 - Sepsis, unspecified organism Pneumonia Qualifiers: Pneumonia type: due to unspecified organism Laterality: right Lung location: lower lobe of lung Qualified Code(s): J18.9 - Pneumonia, unspecified organism Dementia Qualifiers: Dementia type: unspecified type Dementia behavioral disturbance: without behavioral disturbance Qualified Code(s): F03.90 - Unspecified dementia without behavioral disturbance
[2020-08-12 02:37] LABS: Hematocrit (blood only) 32.3 % (37-47); Mean Corpuscular Hemoglobin 29.9 pg (25-34); Mean Corpuscular Hgb Conc 34.1 g/dL (32-36); Mean Corpuscular Volume 87.8 fL (80-100); Mean Platelet Volume 10.1 fL (7.4-10.4); Platelet Count 251 K/uL (130-400); RDW Coefficient of Variation 14.9 % (11.5-14.5); RDW Standard Deviation 48.3 fL (36.4-46.3); Red Blood Count 3.68 M/uL (4.2-5.4); White Blood Count 21.45 K/uL (4.8-10.8)
[2020-08-12 02:51] LABS: Partial Thromboplastin Ratio 1.2; Partial Thromboplastin Time 34.5 Seconds (21.0-31.0); Prothrombin Time 10.4 Seconds (9.0-12.0)
[2020-08-12 03:03] LABS: Basophils # (auto) 0.01 K/uL (0-0.2); Echinocytes 1+; Immature Granulocytes # (auto) 0.43 K/uL (0.00-0.02); Lymphocytes # (auto) 0.77 K/uL (1.2-3.4); Lymphocytes % (auto) 3.6 %; Monocytes # (auto) 0.71 K/uL (0.11-0.59); Monocytes % (auto) 3.3 %; Neutrophils # (auto) 19.53 K/uL (1.4-6.5); Neutrophils % (auto) 91.1 %
[2020-08-12 03:08] LABS: Alanine Aminotransferase 38 U/L (12-78); Albumin Globulin Ratio 0.6 (0.9-2); Albumin Level 2.7 gm/dl (3.4-5.0); Alkaline Phosphatase 107 U/L (45-117); Aspartate Aminotransferase 31 U/L (15-37); Bilirubin,Total 1.2 mg/dl (0.2-1); Blood Urea Nitrogen 46 mg/dl (7-18); Calcium 8.9 mg/dl (8.5-10.1); Carbon Dioxide 20 mmol/L (21-32); Chloride 108 mmol/L (98-107); Est GFR (African American) 36.3; Est GFR (Non-African American) 31.3; Globulin 4.6 gm/dl (2.5-4.0); Glucose 195 mg/dl (70-99); Potassium 4.3 mmol/L (3.5-5.1); Sodium 136 mmol/L (136-145); Total Protein 7.3 gm/dl (6.4-8.2)
[2020-08-12 03:49] LABS: Influenza A virus by PCR Negative (Negative); Influenza B virus by PCR Negative (Negative)
[2020-08-12] MEDS ORDERED: LABETALOL HCL IV 5 MG/ML 20ML IV STA ×2 (03:53→06:12)
[2020-08-12] MEDS ORDERED: SODIUM CHLORIDE 0.9% 1000ML 1,000 ML IV SCH (04:00)
[2020-08-12] MEDS ORDERED: ACETAMINOPHEN 1,000 MG/100 ML VIAL IV STA (05:18)
[2020-08-12] MEDS ORDERED: DEXAMETHASONE SOD INJ 4 MG/ML VIAL IV STA (05:20)
[2020-08-12] MEDS ORDERED: ALBUTEROL HFA 8 GM INHALER INH STA (05:29)
[2020-08-12] MEDS ORDERED: INSULIN GLARGINE SOLOSTAR 100 UNITS/ML 3 ML PEN SC STA (05:34)
[2020-08-12] MEDS ORDERED: ACETAMINOPHEN 325 MG TAB PO STA (06:12)
--- NOTE | 2020-08-12 06:17 | History & Physical Report ---
Date of Service August 12, 2020 Assessment & Plan (1) Acute hypoxemic respiratory failure: Secondary to HCAP/severe COVID-19 pneumonia Failed outpatient treatment Severe sepsis SIRS plus lactic acidosis plus hypoxemia secondary to above Hypertensive crisis, troponin elevation secondary to illness chronic diastolic HF as per records, patient on the dry side hx CAD status post stent chronic LBBB history CVA as per records DM2 diet-controlled, patient hyperglycemic from recent outpatient steroid course for COVID-19 pneumonia (Hemoglobin A1c currently 6.4) chronic anemia, hemoglobin better than baseline likely from hemoconcentration hypothyroidism, TSH noted to be low Dementia, patient lethargic at care home as per documentation, currently awake though and uncomfortable. Supplemental O2 Baseline ABG Cultures, Zosyn, Vancomycin for now IVF, follow lactic acid Decadron course, bronchodilator MDI RTC given bronchopneumonia causing significant hypoxemia and bronchospasm Remdesivir initial dose now for severe COVID-19 pneumonia Pulmonology consult Re: Respiratory failure, severe COVID-19 pneumonia Additional labetalol dose now, facilitate home BP medications, may need dose titration Follow troponin, TTE if with significant progression Basal insulin, ISS BG goal [id number], carb count coverage Check other TFTs, home levothyroxine may need dose titration DVT prophylaxis. Heparin subcu DNR as per prior directives as daughter/POA (Ms. Kenna Marcum, contact #[phone] 10/30 [id number]). Patient daughter counseled regarding potential adverse effects from Remdesivir therapy over the phone. She agrees to initial dose of Remdesivir and convalescent plasma administration if recommended by Pulmonology. Total critical time was 40 minutes. Text document was generated using [employer] voice recognition software. It may contain grammatical or spelling errors. Kindly contact undersigned for clarification of any documentation item in question. History of Present Illness Chief Complaint: Worsening shortness of breath Primary Care Provider: Dr. Loredo, [facility] History obtained from patient, ER provider, patient family, and records. Limited history from patient secondary to dementia, hearing impairment. Medical history significant for chronic diastolic HF as per records, CAD status post stent , chronic LBBB, history CVA as per records, HTN, CRI (baseline creatinine 1.2), chronic anemia (baseline hemoglobin 10), dementia, hypothyroidism, hx parotid tumor Last confinement January 2020 for metabolic encephalopathy secondary to complicated UTI. Few days history of cough symptoms, shortness of breath, lethargy, fever. Patient noted to be COVID-19 positive. Outpatient chest x-ray yesterday showed right lower lobe pneumonia. Dexamethasone and azithromycin started yesterday. Worsening respiratory distress, hypoxemia noted overnight at care home. At the ER, patient received vancomycin and Zosyn for sepsis. Initial SBP noted to be 220s. IV labetalol given at the ER. Medical History as above Surgical History : Appendectomy, cholecystectomy, Family History : Could not be obtained Personal/Social history : snf resident Allergies Allergy/AdvReac Type Severity Reaction Status Date / Time tramadol Allergy Unknown ON WINDY Verified 08/12/20 02:58 [facility] MED LIST Home Medications Medication Instructions Recorded Confirmed Type acetaminophen [Tylenol] 650 mg PO Q4 PRN MDD 3 GRAM/24 01/15/20 08/12/20 History HOURS aspirin 81 mg PO DAILY 01/15/20 08/12/20 History atorvastatin 20 mg PO HS 01/15/20 08/12/20 History clopidogrel [Plavix] 75 mg PO DAILY 01/15/20 08/12/20 History famotidine 20 mg PO BID 01/15/20 08/12/20 History ferrous sulfate 325 mg PO DAILY 01/15/20 08/12/20 History isosorbide mononitrate 30 mg PO DAILY 01/15/20 08/12/20 History sennosides-docusate sodium 1 tab-cap PO BID 01/15/20 08/12/20 History [Senna-S] calcium carbonate [Tums E-X] 300 mg PO Q6 PRN 01/27/20 08/12/20 History nut.tx,imp.renal function,whey 1 ea PO DAILY 01/27/20 08/12/20 History [Renalcal (whey)] ondansetron HCl 4 mg PO Q6H PRN 01/27/20 08/12/20 History Lactobacillus acidoph-L.bulgar 1 tab PO BID17 08/12/20 08/12/20 History [Lactinex] acetaminophen [Tylenol Extra 500 mg PO TID MDD 3 GRAM/24 HOURS 08/12/20 08/12/20 History Strength] albuterol sulfate 2 puff INHALATION Q6H 08/12/20 08/12/20 History amlodipine 5 mg PO DAILY 08/12/20 08/12/20 History ascorbic acid (vitamin C) [Vitamin 500 mg PO DAILY 08/12/20 08/12/20 History C] azithromycin 250 mg PO DAILY 08/12/20 08/12/20 History cholecalciferol (vitamin D3) 25 mcg PO DAILY 08/12/20 08/12/20 History [Vitamin D3] clonidine HCl 0.1 mg PO AMHS 08/12/20 08/12/20 History dexamethasone 6 mg PO DAILY 08/12/20 08/12/20 History guaifenesin [Guiatuss] 200 mg PO Q4H PRN 08/12/20 08/12/20 History levothyroxine 125 mcg PO DAILYBB 08/12/20 08/12/20 History melatonin 1 mg PO HS 08/12/20 08/12/20 History methylprednisolone sod suc(PF) 40 mg IM ONCE 08/12/20 08/12/20 History metoprolol tartrate See Rx Instructions .ROUTE .COMPLEX 08/12/20 08/12/20 History risperidone 0.25 mg PO BID17 08/12/20 08/12/20 History spironolactone 25 mg PO Q OTHER DAY 08/12/20 08/12/20 History zinc sulfate 220 mg PO BID 08/12/20 08/12/20 History Past Med/Surg History Medical History Anemia Hypertension Left bundle branch block (LBBB) Social History Smoking Status: Unknown if ever smoked Preferred Language: Djiboutian Communication Ability: Unable Volumetric Weigher Required: No Beliefs That Will Affect Care: None Current Living Situation: Custodial Current Living Situation Comment: resident at [facility] Other Information That Helps Us Care for You: No Feels Safe at Home: Yes Safety Concerns: Feels Safe At This Time Assistive Devices: Walker Review of Systems Review of Systems: Could not be reliably obtained Physical Exam Physical Exam: GENERAL: uncomfortable, demented, hard of hearing, respiratory distress SKIN: Pallor , warm HEENT: Pale palpebral conjunctivae, no ptosis, dry buccal mucosa, nasal cannula in place NECK : Supple, no tenderness CHEST : Bilateral rhonchi, expiratory wheezes, no tenderness HEART : RRR, no obvious murmurs ABDOMEN: Some distention, nontender EXTREMITIES : No LE swelling/tenderness, no other conspicuous deformities noted NEUROLOGIC : Coherent, no facial asymmetry, no other gross focality Results & Data Results & Data ([facility]) Vital Signs (Past 12 Hours) Vital Signs Temp Pulse Pulse Resp BP BP Pulse Ox 08/12/20 05:43 96 08/12/20 05:40 100 H 31 H 96 08/12/20 05:31 93 H 40 H 226/89 H 97 08/12/20 05:30 91 H 37 H 97 08/12/20 05:20 85 29 H 97 08/12/20 05:10 85 30 H 96 08/12/20 05:00 94 H 38 H 182/92 H 97 08/12/20 04:50 83 25 H 97 08/12/20 04:40 82 29 H 95 08/12/20 04:30 84 28 H 176/85 H 96 08/12/20 04:24 30 H 97 08/12/20 04:20 89 34 H 96 08/12/20 04:10 77 27 H 97 08/12/20 04:00 84 27 H 181/66 H 08/12/20 03:54 26 H 96 08/12/20 03:50 85 27 H 08/12/20 03:40 92 H 38 H 08/12/20 03:30 90 32 H 190/93 H 96 08/12/20 03:25 90 35 H 201/91 H 94 08/12/20 03:20 95 H 35 H 95 08/12/20 03:10 96 H 35 H 94 08/12/20 03:00 97 H 27 H 94 08/12/20 02:54 30 H 96 08/12/20 02:50 87 31 H 97 08/12/20 02:40 92 H 34 H 96 08/12/20 02:38 24 97 08/12/20 02:30 92 H 36 H 198/100 H 98 08/12/20 02:27 37.9 C H 96 H 96 H 24 208/91 H 208/91 H 97 08/12/20 02:20 95 H 37 H 97 08/12/20 02:17 90 35 H 208/91 H 97 08/12/20 02:15 96 H 33 H 224/99 H 98 Laboratory Results Laboratory Results WBC 21.45 K/uL (4.8-10.8) H 08/12/20 02:25 RBC 3.68 M/uL (4.2-5.4) L 08/12/20 02:25 Hgb 11.0 g/dL (12.0-16.0) L 08/12/20 02:25 Hct 32.3 % (37-47) L 08/12/20 02:25 MCV 87.8 fL (80-100) 08/12/20 02:25 MCH 29.9 pg (25-34) 08/12/20 02:25 MCHC 34.1 g/dL (32-36) 08/12/20 02:25 RDW Std Deviation 48.3 fL (36.4-46.3) H 08/12/20 02:25 RDW Coeff of Alhaji 14.9 % (11.5-14.5) H 08/12/20 02:25 Plt Count 251 K/uL (130-400) 08/12/20 02:25 MPV 10.1 fL (7.4-10.4) 08/12/20 02:25 Immature Gran % (Auto) 2.0 % 08/12/20 02:25 Neut % (Auto) 91.1 % 08/12/20 02:25 Lymph % (Auto) 3.6 % 08/12/20 02:25 Archer % (Auto) 3.3 % 08/12/20 02:25 Eos % (Auto) 0.0 % 08/12/20 02:25 Baso % (Auto) 0.0 % 08/12/20 02:25 Neut # (Auto) 19.53 K/uL (1.4-6.5) H 08/12/20 02:25 Lymph # (Auto) 0.77 K/uL (1.2-3.4) L 08/12/20 02:25 Archer # (Auto) 0.71 K/uL (0.11-0.59) H 08/12/20 02:25 Eos # (Auto) 0.00 K/uL (0-0.5) 08/12/20 02:25 Baso # (Auto) 0.01 K/uL (0-0.2) 08/12/20 02:25 Immature Gran # (Auto) 0.43 K/uL (0.00-0.02) H 08/12/20 02:25 Echinocytes 1+ 08/12/20 02:25 PT 10.4 Seconds (9.0-12.0) 08/12/20 02:25 INR 1.0 (0.9-1.1) 08/12/20 02:25 APTT 34.5 Seconds (21.0-31.0) H 08/12/20 02:25 PTT Ratio 1.2 08/12/20 02:25 Sodium 136 mmol/L (136-145) 08/12/20 02:25 Potassium 4.3 mmol/L (3.5-5.1) 08/12/20 02:25 Chloride 108 mmol/L (98-107) H 08/12/20 02:25 Carbon Dioxide 20 mmol/L (21-32) L 08/12/20 02:25 Anion Gap 8.0 (3-11) 08/12/20 02:25 BUN 46 mg/dl (7-18) H 08/12/20 02:25 Creatinine 1.48 mg/dl (0.6-1.2) H 08/12/20 02:25 Est Cr Clr Drug Dosing Not Reportable 08/12/20 02:25 Est GFR ( Amer) 36.3 08/12/20 02:25 Est GFR (Non-Af Amer) 31.3 08/12/20 02:25 BUN/Creatinine Ratio 31.0 (10-20) H 08/12/20 02:25 Glucose 195 mg/dl (70-99) H 08/12/20 02:25 Lactate 3.0 mmol/L (0.4-2.0) H* 08/12/20 05:18 Calcium 8.9 mg/dl (8.5-10.1) 08/12/20 02:25 Magnesium 2.0 mg/dl (1.8-2.4) 08/12/20 02:25 Total Bilirubin 1.2 mg/dl (0.2-1) H 08/12/20 02:25 AST 31 U/L (15-37) 08/12/20 02:25 ALT 38 U/L (12-78) 08/12/20 02:25 Alkaline Phosphatase 107 U/L (45-117) 08/12/20 02:25 Troponin I 0.060 ng/ml (0-0.045) H* 08/12/20 02:25 Total Protein 7.3 gm/dl (6.4-8.2) 08/12/20 02:25 Albumin 2.7 gm/dl (3.4-5.0) L 08/12/20 02:25 Globulin 4.6 gm/dl (2.5-4.0) H 08/12/20 02:25 Albumin/Globulin Ratio 0.6 (0.9-2) L 08/12/20 02:25 Procalcitonin 8.12 ng/ml (0-0.5) H 08/12/20 02:25 Specimen Hemolysis 08/12/20 02:25 Influ A Molecular Assay Negative (Negative) 08/12/20 02:23 Influ B Molecular Assay Negative (Negative) 08/12/20 02:23 Diagnostic Findings Chest x-ray as per my interpretation cardiomegaly, atelectasis, right-sided infiltrate EKG as per my interpretation : Rate 95, NSR, LAD, LAFB, LBBB
[2020-08-12] MEDS ORDERED: cloNIDine HCL 0.1 MG TAB ONE (06:22)
[2020-08-12] MEDS ORDERED: ACETAMINOPHEN 325 MG TAB ONE (06:22)
[2020-08-12] MEDS ORDERED: LABETALOL HCL IV 5 MG/ML 20ML IV ONE (06:23)
[2020-08-12] MEDS ORDERED: cloNIDine HCL 0.1 MG TAB PO STA (06:26)
[2020-08-12] MEDS ORDERED: LACTATED RINGER'S 1,000 ML IV ONE (06:30)
[2020-08-12 06:35] LABS: Base Excess ABG -4.7 mEq/L (-9-1.8); HCO3 ABG 18 mmol/L (19-24); Oxygen Saturation ABG 97.2 % (90-95); PCO2 ABG 26 mmHg (35-46); PO2 ABG 95 mmHg (80-95); pH ABG 7.47 (7.35-7.45)
[2020-08-12 06:38] LABS: Allen Test Pos (Pos)
[2020-08-12 06:57] LABS: Thyroid Stimulating Hormone 0.21 uIu/ml (0.300-4.500); Troponin I 0.069 ng/ml (0-0.045)
[2020-08-12 07:24] LABS: Estimated Average Glucose 137 mg/dl; Hemoglobin A1C 6.4 % (4.5-5.6)
[2020-08-12] MEDS ORDERED: dexAMETHasone 6 MG in DEXTROSE 5% 25 ML IV SCH (09:00)
[2020-08-12] MEDS ORDERED: CARBOHYDRATES FOR HYPOGLYCEMIA PO PRN (09:00)
[2020-08-12] MEDS ORDERED: METOPROLOL TARTRATE 25 MG TAB PO SCH ×3 (09:00→21:00)
[2020-08-12] MEDS ORDERED: CLOPIDOGREL BISULFATE 75 MG TAB PO SCH (09:00)
[2020-08-12] MEDS ORDERED: DEXTROSE 50% 50 ML SYRINGE IV PRN (09:00)
[2020-08-12] MEDS ORDERED: DOCUSATE SODIUM/SENNA 50/8.6MG TAB PO SCH (09:00)
[2020-08-12] MEDS ORDERED: ASPIRIN 81 MG ECTAB PO SCH (09:00)
[2020-08-12] MEDS ORDERED: GLUCAGON FOR INJ 1 MG VIAL SQ PRN (09:00)
[2020-08-12] MEDS ORDERED: ISOSORBIDE MONO EXTENDED REL 30 MG TABCR PO SCH (09:00)
[2020-08-12] MEDS ORDERED: FAMOTIDINE 20 MG TAB PO SCH (09:00)
[2020-08-12] MEDS ORDERED: oxyCODONE HCL IR 5 MG TAB (IMMEDIATE RELEASE) PO PRN (09:00)
[2020-08-12] MEDS ORDERED: GLUCOSE 40% GEL 15 GM TUBE PO PRN (09:00)
[2020-08-12] MEDS ORDERED: FERROUS SULFATE 325 MG TAB PO SCH (09:00)
[2020-08-12] MEDS ORDERED: PROMETHAZINE HCL 6.25 MG in SODIUM CHLORIDE 0.9% 50 ML IV PRN (09:00)
[2020-08-12] MEDS ORDERED: amLODIPine BESYLATE 5 MG TAB PO SCH (09:00)
[2020-08-12] MEDS ORDERED: GLUCOSE 10 TABS/TUBE PO PRN (09:00)
[2020-08-12] MEDS ORDERED: ACETAMINOPHEN 325 MG TAB PO PRN (09:00)
[2020-08-12] MEDS ORDERED: risperiDONE 0.5 MG TABLET PO SCH (09:00)
[2020-08-12] MEDS ORDERED: LACTATED RINGER'S 1,000 ML IV SCH (09:00)
[2020-08-12] MEDS ORDERED: DEXAMETHASONE SOD PHOSPHATE 6 MG in SYRINGE 0 ML IV SCH (09:00)
[2020-08-12] MEDS ORDERED: [UNRECOGNIZED DRUG - OTHER] PO SCH (09:00)
[2020-08-12] MEDS ORDERED: cloNIDine HCL 0.1 MG TAB PO SCH (09:00)
--- NOTE | 2020-08-12 09:06 | XRay Report ---
XR chest 1V portable CLINICAL HISTORY: SEPSIS COMPARISON STUDY: 01/27/2020 FINDINGS: The heart is enlarged. There are right lower lobe airspace opacities suspicious for a pneum onia. There is a suspected small right pleural effusion.[ IMPRESSION: 1. Right lower lung zone airspace opacity suspicious for pneumonia 2. Possible small right pleural effusion 3. Clinical and radiographic follow-up are recommended ACT 112: Negative or not required by law. Electronically signed by: Romeo Soto M.D. 08/12/2020 9:04 AM
[2020-08-12] MEDS ORDERED: REMDESIVIR 200 MG in SODIUM CHLORIDE 0.9% 210 ML IV STA (09:22)
[2020-08-12] MEDS ORDERED: cefTRIAXone SODIUM 1,000 MG in DEXTROSE 5% 50 ML IV SCH (09:30)
[2020-08-12] MEDS ORDERED: PHARMACY GLYCEMIC MGMT CONSULT PRN (09:36)
[2020-08-12] MEDS ORDERED: INSULIN HUMAN NPH SC ONE (10:00)
[2020-08-12] MEDS ORDERED: INSULIN GLARGINE SOLOSTAR 100 UNITS/ML 3 ML PEN SC ONE (10:30)
[2020-08-12 10:51] LABS: C Reactive Protein 33.1 mg/dl (0-0.29); Ferritin 285.7 ng/ml (8-388); T4 Free Thyroxine 1.58 ng/dl (0.8-1.6)
[2020-08-12] MEDS: INSULIN ASPART 100 UNITS/ML 3 ML PEN SC SCH ×4 (11:15→21:05)
[2020-08-12] MEDS: PIPERACILLIN/TAZOBACTAM 3.375 GM in DEXTROSE 5% 100 ML IV SCH ×2 (11:15→15:59)
[2020-08-12] MEDS: DOXYCYCLINE HYCLATE 100 MG in DEXTROSE 5% 100 ML IV SCH ×2 (11:16→20:09)
[2020-08-12] MEDS: PATIENT'S HEIGHT AND/OR WEIGHT NEEDED SCH ×3 (11:21→11:34)
[2020-08-12] MEDS: LEVOTHYROXINE SODIUM 125 MCG TABLET PO SCH (11:24)
[2020-08-12] MEDS: LEVALBUTEROL TARTRATE 15 GM HFA.AER.AD INH SCH ×3 (11:59→21:00)
[2020-08-12] MEDS ORDERED: FUROSEMIDE 40 MG in SYRINGE 0 ML IV ONE (12:00)
[2020-08-12] MEDS ORDERED: FUROSEMIDE 40 MG/4 ML VIAL IV ONE (12:16)
--- NOTE | 2020-08-12 13:56 | Pharmacy Report ---
Glycemic Control Consultation - Date of Service August 12, 2020 - Scope Scope: Glycemic Pharmacist consulted for glycemic control and to write orders per [facility] inpatient glycemic control protocol. - Objective Weight: 60.8 kg Accuchecks BSG (last 24hrs): 08/12/20 08/12/20 02:25 11:09 Glucose 195 H POC Glucose 184 H Laboratory Data (last 24hrs): 08/12/20 02:25 Potassium 4.3 Carbon Dioxide 20 L Anion Gap 8.0 Creatinine 1.48 H Est Cr Clr Drug Dosing Not Reportable HbA1c: Hemoglobin A1c 6.4 % (4.5-5.6) H 08/12/20 02:25 - Recent Pertinent Medications Outpatient Anti-diabetic Regimen: * N/A Risk Factors for Insulin Resistance: * Steroids: dexamethasone 6 mg IV q24 hours (received Solu-Medrol 40 mg IV BID on 08/11 PLUS dexamethasone) * Infection: COVID + * Diet: clear liquid - Assessment & Plan Assessment & Plan: ASSESSMENT: * Ms Florence is an 89 y/o F without a PMH of diabetes who presents with COVID19. Her BSG on admission was 195 mg/dL HOWEVER this was after two doses of Solu-Medrol yesterday and dexamethasone. * Will start with NPH 0.4 units/kg or 25 units to cover steroid hyperglycemia. * Start with Lantus 25 units (full weight-based stress of 2-3) for now as a "load" * Novolog weight-based stress of 3 due to steroid use. PLAN FOR INPATIENT GLYCEMIC CONTROL: * Basal insulin * Lantus 25 units SQ x 1 + NPH 25 units SQ x 1 * Bolus insulin * NovoLog per scale ACHS or Q6hrs while NPO * Goal Range: Low 110 mg/dL - High 140 mg/dL * Correction Factor: 25 mg/dL/unit * Nutritional / Prandial insulin per carb ratio of 1 unit per 9 grams CHO consumed * Please note that the plan above was derived based on current level of insulin resistance and hospital stress. These recommendations are appropriate for inva tient admission only. Plan of care upon discharge will need to be reassessed to avoid potential outpatient hypo/hyperglycemia. Thank you.
[2020-08-12] MEDS ORDERED: HEPARIN SOD 5,000 UNIT/0.5 ML VIAL SQ SCH (14:00)
[2020-08-12] MEDS: SODIUM CHLORIDE 0.9% 10ML FLUSH IV SCH (14:29)
[2020-08-12 14:37] LABS: Appearance Urine Clear (Clear); Bacteria Urine Automated Negative (Negative); Bilirubin Urine Negative (Negative); Blood Urine Trace (Negative); Color Urine Yellow; Epithelial Cell Urine Auto >30 /lpf (0-5); Glucose Urine UA Negative (Negative); Ketones Urine Negative (Negative); Leukocyte Esterase Urine 1+ (Negative); Nitrite Urine Negative (Negative); Protein Urine 2+ (Negative); RBC Urine Automated 0-4 /hpf (0-4); Specific Gravity Urine 1.013 (1.000-1.030); Urobilinogen Urine Negative (Negative)
--- NOTE | 2020-08-12 15:11 | Hospitalist Progress Note ---
Date of Service August 12, 2020 Assessment & Plan (1) Acute hypoxemic respiratory failure: Possible due to severe COVID-19 pneumonia and CHF exacerbation Positive COVID 19 Failed outpatient treatment CXR showed right lower lung zone airspace opacity suspicious for pneumonia. Possible small right pleural effusion Elevated inflammatory marker such as ESR 65, C reactive 33, Pro BNP 64265 anad procalcitonin 8.12 Received Remdesivir and Dexamethasone on admission pulmonology on board case discussed with Manager Validation, No plasma convalescent since pt is volume overload Will continue Remdesivir and dexamethasone Continue oxygen supplement If breathing worsening, will consider to put on BIPAP Continue respiratory treatment with levalbuterol Will encourage nurse to encourage pt to prone Severe sepsis Possible related to COVID 19 and Pneumonia Met sepsis criteria with elevated WBC, RR, Lactate and procalcitonin on admission Received IV Zosyn and vanco in the ER Rocephin and Doxycycline added received IVF, but will d/c due to CHF exacerbation Blood cx and urine cx collected in the ER pending Will follow lactate and WBC Continue monitor closely Acute on Chronic diastolic [place] admission [address] Will discontinue IVF since pt volume overload Lasix 40mg IV x1 given Will get an echo in am Consider cardiology consult Consider to give additional lasix later Continue monitor I/O Will monitor BMP while on IV lasix Elevated Troponin Due to demand ischemia due to acute hypoxia respiratory failure, sepsis and CHF, hypertensive Troponin 0.069, then 0.069x2 EKG showed LBBB and non specific T wave inversion Continue aspirin/plavix/statin/ metoprolol Continue monitor Hypertensive crisis BP on admission 224/99 Continue home BP med Continue IV hydralzine PRN Continue monitor BP Hypothyroidism TSH low Consider to decrease levothyroxine Dementia Confused as baseline DVT prophylaxis. Heparin subcu DNR as per prior directives as daughter/POA (Ms. Kenna Marcum, contact #[phone] 10/30 [phone]). Patient daughter counseled regarding potential adverse effects from Remdesivir therapy over the phone. She agrees to initial dose of Remdesivir and convalescent plasma administration if recommended by Pulmonology. Admission and Anticipated Discharge Date Admission Date: August 12, 2020 Subjective Pt was seen and examined Lying in bed with acute respiratory distress Pt said that her breathing is ok Denies any chest pain, palpitation, dizziness and fever Physical Exam Physical Exam: General- acute respiratory distress Head- atraumatic Eyes- PERRL, EOMI, ENT- oropharynx clear Neck- supple, no JVD Lungs-B/L Crackle Heart- regular rhythm; no murmur Abdomen- normal bowel sounds, soft, nontender Extremities- no calf tenderness Neuro- awake and confused Skin- warm & dry Results & Data Results & Data ([facility]) Vital Signs (Past 12 Hours) Vital Signs Temp Pulse Pulse Resp BP BP Pulse Ox 08/12/20 12:01 77 26 H 96 08/12/20 11:48 37.1 C 82 38 H 189/98 H 99 08/12/20 09:03 37.6 C H 83 24 187/77 H 96 08/12/20 07:56 75 28 H 171/57 H 96 08/12/20 07:05 78 24 124/53 L 95 08/12/20 05:43 96 08/12/20 05:40 100 H 31 H 96 08/12/20 05:31 93 H 40 H 226/89 H 97 08/12/20 05:30 91 H 37 H 97 08/12/20 05:20 85 29 H 97 08/12/20 05:10 85 30 H 96 08/12/20 05:00 94 H 38 H 182/92 H 97 08/12/20 04:50 83 25 H 97 08/12/20 04:40 82 29 H 95 08/12/20 04:30 84 28 H 176/85 H 96 08/12/20 04:24 30 H 97 08/12/20 04:20 89 34 H 96 08/12/20 04:10 77 27 H 97 08/12/20 04:00 84 27 H 181/66 H 08/12/20 03:54 26 H 96 08/12/20 03:50 85 27 H 08/12/20 03:40 92 H 38 H 08/12/20 03:30 90 32 H 190/93 H 96 08/12/20 03:25 90 35 H 201/91 H 94 08/12/20 03:20 95 H 35 H 95 08/12/20 03:10 96 H 35 H 94
[2020-08-12] MEDS: risperiDONE 0.5 MG TABLET PO SCH (15:50)
--- NOTE | 2020-08-12 15:50 | Pharmacy Report ---
Pharmacy Abx Initial Consult - Date of Service August 12, 2020 - Pharmacy Dosing Scope Date of Consult: 08/12/2020 Consultation requested by: Dr. Still Pharmacy is consulted to initiate Vanc + Zosyn IV dosing therapy, order appropriate labs and adjust drug dose/frequency. - Subjective The patient is a 89 year old F admitted on 08/12/20 06:26. - Objective Height: 5 ft 3 in Weight: 60.8 kg Vital Signs (Past 12hrs): Vital Signs Temp Pulse Pulse Resp BP BP Pulse Ox 08/12/20 15:21 85 08/12/20 12:01 77 26 H 96 08/12/20 11:48 37.1 C 82 38 H 189/98 H 99 08/12/20 09:03 37.6 C H 83 24 187/77 H 96 08/12/20 07:56 75 28 H 171/57 H 96 08/12/20 07:05 78 24 124/53 L 95 08/12/20 05:43 96 08/12/20 05:40 100 H 31 H 96 08/12/20 05:31 93 H 40 H 226/89 H 97 08/12/20 05:30 91 H 37 H 97 08/12/20 05:20 85 29 H 97 08/12/20 05:10 85 30 H 96 08/12/20 05:00 94 H 38 H 182/92 H 97 08/12/20 04:50 83 25 H 97 08/12/20 04:40 82 29 H 95 08/12/20 04:30 84 28 H 176/85 H 96 08/12/20 04:24 30 H 97 08/12/20 04:20 89 34 H 96 08/12/20 04:10 77 27 H 97 08/12/20 04:00 84 27 H 181/66 H 08/12/20 03:54 26 H 96 08/12/20 03:50 85 27 H Lab Results (24hrs): Laboratory Tests (24 Hours) 08/12/20 08/12/20 08/12/20 09:51 09:51 02:25 WBC Neut # (Auto) ESR 65 H Creatinine Est Cr Clr Drug Dosing C-Reactive Protein 33.10 H Procalcitonin 8.12 H 08/12/20 08/12/20 02:25 02:25 WBC 21.45 H Neut # (Auto) 19.53 H ESR Creatinine 1.48 H Est Cr Clr Drug Dosing Not Reportable C-Reactive Protein Procalcitonin Micro Results: 08/12/20 13:15 Urine Culture - Pending Urine,Straight Cath 08/12/20 02:57 Aerobic Blood Culture - Pending Blood Anaerobic Blood Culture - Pending 08/12/20 02:25 Aerobic Blood Culture - Pending Blood Anaerobic Blood Culture - Pending - Assessment & Plan Assessment * 89 year old F admitted to [facility] from [facility] for shortness of breath * Known coronavirus diagnosed on August 03. Has required supplemental oxygen via nasal cannula since diagnosis. * Was also placed on azithromycin in the interim as Chest X-ray showed development of right lower lobe infiltrate * MRSA nasal swab taken today came back positive * Patient placed on Vanc + Zosyn + Doxy + Remdesivir Plan Vancomycin IV * Estimated PK Parameters: Vd 0.7 L/kg, Timmy 0.017 hr-1, t1/2 40 hr * Loading dose: 1000 mg (17 mg/kg) * Goal trough level for [indication] : 15 to 20 mcg/mL * Random level will be obtained tomorrow morning with AM labs. Subsequent dose of vancomycin will be based upon this level. * Extended dosing interval has been selected due to likelihood of drug accumulation patient with h/o CKD. Piperacillin/tazobactam * 4.5 g bolus administered over 30 minutes, then 3.375 g IV extended infusion every 8 hours for CrCl greater than 20 mL/min Pharmacy will continue to follow and will adjust dose/frequency as necessary. Thank you.
[2020-08-12] MEDS ORDERED: PNEUMOCOCCAL Polysaccharide Vaccine 25mcg/0.5mL vial/Syr IM ONE (16:00)
--- NOTE | 2020-08-12 16:39 | Pulmonary Consultation ---
Date of Consultation August 12, 2020 Assessment & Plan (1) Acute hypoxemic respiratory failure: Chest x-ray 08/12/2020: Portable film, haziness appreciated in the right lower lobe, right costophrenic angle is blunted, increased cardiac silhouette --Acute hypoxic respiratory failure Multifactorial WBC count of 21,000, procalcitonin 8.12 --> high likelihood of bacterial pneumonia, nasal MRSA positive--> continue with antibiotics with atypical coverage--> follow-up sputum culture BNP greater almost 15,000 --> diastolic CHF also playing a role --> continue with diuretics as tolerated O2 supplementation to keep oxygen saturation 90-92% Influenza A/B -ve If there is need of oxygen greater than 6 L will recommend high flow. In patients diastolic CHF component would consider even BiPAP 12/6 40%. --COVID-19 pneumonia ESR: 65, CRP 33.1, ferritin 285 Continue with remdesivir for total of 5 days Dexamethasone 6 mg for total of 10 days Given the patient has diastolic CHF and BNP being 15,000 I do not think cannulation plasma would be a good choice. Plan: Continue with O2 supplementation Aggressive diuresis to keep the patient negative balance. Patient is +3 L since coming to the ED. Continue with incentive spirometry Case was discussed with nurse as well as Dr. Dahl Pulmonary will follow peripherally. Please call with any questions. Please note the above document was generated using voice recognition software. It may contain grammatical, syntax or spelling errors.Any formal questions or concerns about the content, text or information contained within the body of this dictation should be directly addressed to the provider for clarification. (2) COVID-19: (3) Pneumonia: Laterality: right Lung location: lower lobe of lung Pneumonia type: due to unspecified organism Qualified Code(s): J18.9 - Pneumonia, unspecified organism (4) Sepsis: Acute respiratory failure type: with hypoxia Sepsis acute organ dysfunction status: with acute organ dysfunction Sepsis type: sepsis due to unspecified organism Severe sepsis acute organ dysfunction type: acute respiratory failure Severe sepsis shock status: without septic shock Qualified Code(s): A41.9 - Sepsis, unspecified organism; R65.20 - Severe sepsis without septic shock; J96.01 - Acute respiratory failure with hypoxia (5) Acute kidney injury superimposed on CKD: History of Present Illness Attending Physician: Triny Dahl MD History of Present Illness 82-year-old female past medical history of diastolic CHF, coronary artery disease, left foot the branch block, history of CVA and hypertension was brought into the hospital because of cough, shortness of breath and lethargy. Patient was found to be COVID-19 positive. In the snf patient was found to be in respiratory distress and was brought to the ER. Pulmonary were consulted for positive COVID-19 pneumonia along with abnormal chest x-ray At the time of examination patient was saturating 98% on 4 L nasal cannula. Patient denied any chest pain, complained of shortness of breath, dry cough without any phlegm, denies any headache, no nausea or vomiting, no dizziness. Patient was breathing in low 20s. History was obtained partly from the patient, ER records and H&P. Allergies Allergy/AdvReac Type Severity Reaction Status Date / Time tramadol Allergy Unknown ON Verified 08/12/20 02:58 [place] MED LIST Home Medications Medication Instructions Recorded Confirmed Type acetaminophen [Tylenol] 650 mg PO Q4 PRN MDD 3 GRAM/24 01/15/20 08/12/20 History HOURS aspirin 81 mg PO DAILY 01/15/20 08/12/20 History atorvastatin 20 mg PO HS 01/15/20 08/12/20 History clopidogrel [Plavix] 75 mg PO DAILY 01/15/20 08/12/20 History famotidine 20 mg PO BID 01/15/20 08/12/20 History ferrous sulfate 325 mg PO DAILY 01/15/20 08/12/20 History isosorbide mononitrate 30 mg PO DAILY 01/15/20 08/12/20 History sennosides-docusate sodium 1 tab-cap PO BID 01/15/20 08/12/20 History [Senna-S] calcium carbonate [Tums E-X] 300 mg PO Q6 PRN 01/27/20 08/12/20 History nut.tx,imp.renal function,whey 1 ea PO DAILY 01/27/20 08/12/20 History [Renalcal (whey)] ondansetron HCl 4 mg PO Q6H PRN 01/27/20 08/12/20 History Lactobacillus acidoph-L.bulgar 1 tab PO BID17 08/12/20 08/12/20 History [Lactinex] acetaminophen [Tylenol Extra 500 mg PO TID MDD 3 GRAM/24 HOURS 08/12/20 08/12/20 History Strength] albuterol sulfate 2 puff INHALATION Q6H 08/12/20 08/12/20 History amlodipine 5 mg PO DAILY 08/12/20 08/12/20 History ascorbic acid (vitamin C) [Vitamin 500 mg PO DAILY 08/12/20 08/12/20 History C] azithromycin 250 mg PO DAILY 08/12/20 08/12/20 History cholecalciferol (vitamin D3) 25 mcg PO DAILY 08/12/20 08/12/20 History [Vitamin D3] clonidine HCl 0.1 mg PO AMHS 08/12/20 08/12/20 History dexamethasone 6 mg PO DAILY 08/12/20 08/12/20 History guaifenesin [Guiatuss] 200 mg PO Q4H PRN 08/12/20 08/12/20 History levothyroxine 125 mcg PO DAILYBB 08/12/20 08/12/20 History melatonin 1 mg PO HS 08/12/20 08/12/20 History methylprednisolone sod suc(PF) 40 mg IM ONCE 08/12/20 08/12/20 History metoprolol tartrate See Rx Instructions .ROUTE .COMPLEX 08/12/20 08/12/20 History risperidone 0.25 mg PO BID17 08/12/20 08/12/20 History spironolactone 25 mg PO Q OTHER DAY 08/12/20 08/12/20 History zinc sulfate 220 mg PO BID 08/12/20 08/12/20 History Patient History Medical History Anemia Hypertension Left bundle branch block (LBBB) Social History Smoking Status: Unknown if ever smoked Preferred Language: Portuguese Communication Ability: Unable Psychologist [employer] Required: No Beliefs That Will Affect Care: None Current Living Situation: [facility] Current Living Situation Comment: resident at [facility] Other Information That Helps Us Care for You: No Feels Safe at Home: Yes Safety Concerns: Feels Safe At This Time Assistive Devices: Walker Review of Systems Review of Systems: All systems reviewed & are unremarkable except as noted in HPI & below Physical Exam Physical Exam: Constitutional: No acute distress HEENT: EOMI, PERRLA Respiratory system: Decreased air entry bilaterally, no wheeze, no rhonchi, positive crackles bilateral lower lobes more on the right side CVS: S1-S2 positive, distant heart sounds Abdomen: Soft, nontender, nondistended, positive bowel sounds x4 Extremities: +2 pulses bilaterally radialis/ dorsalis pedis, no cyanosis, +1 edema bilateral lower extremity Neuro: Awake alert oriented x3 Psych: Anxious mood and affect G/U: Positive [place] Skin: no rashes, warm and dry Lymphatic: no cervical or axillary lymphadenopathy Results & Data Results & Data ([facility]) Vital Signs (Past 12 Hours) Vital Signs Temp Pulse Pulse Resp BP BP Pulse Ox 08/12/20 16:09 67 32 H 97 08/12/20 15:42 36.7 C 87 40 H 192/80 H 95 08/12/20 15:21 85 08/12/20 12:01 77 26 H 96 08/12/20 11:48 37.1 C 82 38 H 189/98 H 99 08/12/20 09:03 37.6 C H 83 24 187/77 H 96 08/12/20 07:56 75 28 H 171/57 H 96 08/12/20 07:05 78 24 124/53 L 95 08/12/20 05:43 96 08/12/20 05:40 100 H 31 H 96 08/12/20 05:31 93 H 40 H 226/89 H 97 08/12/20 05:30 91 H 37 H 97 08/12/20 05:20 85 29 H 97 08/12/20 05:10 85 30 H 96 08/12/20 05:00 94 H 38 H 182/92 H 97 08/12/20 04:50 83 25 H 97 08/12/20 04:40 82 29 H 95 08/12/20 04:30 84 28 H 176/85 H 96 Laboratory Tests 08/12/20 08/12/20 08/12/20 09:51 09:51 11:00 ESR 65 H C-Reactive Protein 33.10 H NT-Pro-B Natriuret Pep 29251 H Nasal Screen MRSA (PCR) Positive A 08/12/20 02:25 08/12/20 02:25 PG Care Time/CCT Total # of Minutes Spent Total Time Spent with Patient: Total time spent is greater than 50% in coordination of care (as documented) at patient's floor/unit and/or counseling patient: Coding Level of Care Code 54354 Initial Inpt Care Lvl 3 Diagnoses Acute hypoxemic respiratory failure J96.01 COVID-19 U07.1 Pneumonia J18.9 Laterality: right Lung location: lower lobe of lung Pneumonia type: due to unspecified organism Sepsis A41.9; R65.20; J96.01 Acute respiratory failure type: with hypoxia Sepsis acute organ dysfunction status: with acute organ dysfunction Sepsis type: sepsis due to unspecified organism Severe sepsis acute organ dysfunction type: acute respiratory failure Severe sepsis shock status: without septic shock Acute kidney injury superimposed on CKD N17.9; N18.9
[2020-08-12] MEDS: hydrALAZINE HCL 20 MG/ML VIAL IV PRN (17:38)
[2020-08-12] MEDS: cloNIDine HCL 0.1 MG TAB PO SCH (19:52)
[2020-08-12] MEDS: guaiFENesin 600 MG TABCR PO SCH (19:53)
[2020-08-12] MEDS: DOCUSATE SODIUM/SENNA 50/8.6MG TAB PO SCH (19:53)
[2020-08-12] MEDS: ATORVASTATIN 20 MG TAB PO SCH (19:53)
[2020-08-12] MEDS: FAMOTIDINE 20 MG TAB PO SCH (19:53)
[2020-08-12] MEDS ORDERED: FUROSEMIDE 20 MG in SYRINGE 0 ML IV ONE (20:00)
[2020-08-12] MEDS ORDERED: ATORVASTATIN 20 MG TAB PO SCH (21:00)
[2020-08-12] MEDS ORDERED: amLODIPine BESYLATE 5 MG TAB PO ONE (23:01)
[2020-08-12] MEDS ORDERED: METOPROLOL TARTRATE 50 MG TAB PO STA (23:01)
[2020-08-13] MEDS: HEPARIN SOD 5,000 UNIT/0.5 ML VIAL SQ SCH ×2 (00:16→09:02)
[2020-08-13] MEDS: PIPERACILLIN/TAZOBACTAM 3.375 GM in DEXTROSE 5% 100 ML IV SCH ×2 (00:24→07:41)
[2020-08-13] MEDS: INSULIN ASPART 100 UNITS/ML 3 ML PEN SC SCH ×6 (00:32→21:16)
--- NOTE | 2020-08-13 06:29 | Electrocardiogram Report ---
Test Reason : Blood Pressure : / mmHG Vent. Rate : 093 BPM Atrial Rate : 093 BPM P-R Int : 132 ms QRS Dur : 132 ms QT Int : 388 ms P-R-T Axes : 063 -14 106 degrees QTc Int : 482 ms Poor data quality, interpretation may be adversely affected Normal sinus rhythm Left bundle branch block Abnormal ECG When compared with ECG of 15-JAN-2020 22:38, T wave inversion no longer evident in Anterolateral leads Confirmed by Elian Mac ([id number]) on 08/13/2020 6:28:42 AM Referred By: Shahrzad Soriano Confirmed By:Elian Mac
[2020-08-13] MEDS: LEVOTHYROXINE SODIUM 125 MCG TABLET PO SCH (06:30)
[2020-08-13 07:02] LABS: Hematocrit (blood only) 30.1 % (37-47); Hemoglobin 10.5 g/dL (12.0-16.0); Mean Corpuscular Hemoglobin 30.1 pg (25-34); Mean Corpuscular Hgb Conc 34.9 g/dL (32-36); Mean Corpuscular Volume 86.2 fL (80-100); Platelet Count 272 K/uL (130-400); RDW Standard Deviation 47.4 fL (36.4-46.3); Red Blood Count 3.49 M/uL (4.2-5.4)
[2020-08-13 07:28] LABS: Albumin Level 2.1 gm/dl (3.4-5.0); BUN Creatinine Ratio 34.6 (10-20); Bilirubin Direct 0.4 mg/dl (0-0.2); Calcium 8.3 mg/dl (8.5-10.1); Creatinine Clr Calc Pharmacy 23.1 ml/min; Est GFR (African American) 39.1; Est GFR (Non-African American) 33.8; Potassium 3.1 mmol/L (3.5-5.1)
[2020-08-13] MEDS: DEXAMETHASONE SOD PHOSPHATE 6 MG in SYRINGE 0 ML IV SCH (07:34)
[2020-08-13] MEDS: DOXYCYCLINE HYCLATE 100 MG in DEXTROSE 5% 100 ML IV SCH ×2 (07:36→21:54)
[2020-08-13 07:37] LABS: Bilirubin,Total 1.3 mg/dl (0.2-1); Total Protein 6.5 gm/dl (6.4-8.2)
[2020-08-13] MEDS: FAMOTIDINE 20 MG TAB PO SCH ×2 (07:45→21:58)
[2020-08-13] MEDS: METOPROLOL TARTRATE 100 MG TAB PO SCH ×2 (07:45→21:58)
[2020-08-13] MEDS: guaiFENesin 600 MG TABCR PO SCH ×2 (07:45→21:59)
[2020-08-13] MEDS: ISOSORBIDE MONO EXTENDED REL 30 MG TABCR PO SCH (07:45)
[2020-08-13] MEDS: DOCUSATE SODIUM/SENNA 50/8.6MG TAB PO SCH ×2 (07:45→21:58)
[2020-08-13] MEDS: FERROUS SULFATE 325 MG TAB PO SCH (07:46)
[2020-08-13] MEDS: ASPIRIN 81 MG ECTAB PO SCH (07:46)
[2020-08-13] MEDS: CLOPIDOGREL BISULFATE 75 MG TAB PO SCH (07:46)
[2020-08-13] MEDS: cloNIDine HCL 0.1 MG TAB PO SCH ×2 (07:46→21:58)
[2020-08-13 07:47] LABS: Basophils # (auto) 0.02 K/uL (0-0.2); Basophils % (auto) 0.1 %; Immature Granulocytes # (auto) 0.13 K/uL (0.00-0.02); Immature Granulocytes % (auto) 0.5 %; Lymphocytes # (auto) 1.04 K/uL (1.2-3.4); Lymphocytes % (auto) 4.1 %; Monocytes # (auto) 0.75 K/uL (0.11-0.59); Neutrophils # (auto) 23.26 K/uL (1.4-6.5); Neutrophils % (auto) 92.3 %
[2020-08-13] MEDS: risperiDONE 0.5 MG TABLET PO SCH ×2 (07:47→17:38)
[2020-08-13] MEDS: LEVALBUTEROL TARTRATE 15 GM HFA.AER.AD INH SCH ×3 (07:48→11:31)
[2020-08-13] MEDS: amLODIPine BESYLATE 5 MG TAB PO SCH (07:48)
[2020-08-13] MEDS ORDERED: POTASSIUM CHLORIDE CRTAB 20 MEQ TABCR PO STA (07:49)
[2020-08-13] MEDS ORDERED: amLODIPine BESYLATE 5 MG TAB PO SCH (08:00)
[2020-08-13] MEDS ORDERED: METOPROLOL TARTRATE 25 MG TAB PO SCH (08:00)
[2020-08-13] MEDS: FUROSEMIDE 40 MG in SYRINGE 0 ML IV SCH ×2 (08:11→17:44)
[2020-08-13] MEDS ORDERED: VANCOMYCIN HCL 1,250 MG in SODIUM CHLORIDE 0.9% 250 ML IV SCH (08:30)
[2020-08-13 09:12] LABS: Troponin I 0.069 ng/ml (0-0.045)
[2020-08-13] MEDS: REMDESIVIR 100mg: Days 2-5 IV SCH (09:37)
[2020-08-13] MEDS: hydrALAZINE HCL 20 MG/ML VIAL IV PRN (10:41)
[2020-08-13] MEDS: SODIUM CHLORIDE 0.9% 10ML FLUSH IV SCH (10:42)
--- NOTE | 2020-08-13 13:36 | Pharmacy Report ---
Glycemic Control Progress Note - Date of Service August 13, 2020 - Scope Glycemic Pharmacist consulted for glycemic control to write orders per [facility] ED inpatient glycemic control protocol. - Objective Accuchecks BSG(last 24 hours):: 08/12/20 08/12/20 08/12/20 15:50 20:48 23:59 Glucose POC Glucose 146 H 113 H 79 08/13/20 08/13/20 08/13/20 01:03 04:30 06:21 Glucose 65 L POC Glucose 76 93 08/13/20 08/13/20 08:00 11:41 Glucose POC Glucose 99 103 H HbA1c:: Hemoglobin A1c 6.4 % (4.5-5.6) H 08/12/20 02:25 - Recent Pertinent Medications The patient is currently receiving: * Basal insulin: Lantus 25 units X 1 then NPH 25 units SQ x 1 * Correctional Insulin: Novolog Correction per scale ACHS Goal Range: Low 110 mg/dL - High 140 mg/dL Correction Factor: 25 mg/dL/unit * Prandial insulin: Per carb ratio of 1 unit per 9 grams CHO consumed - Outpatient Anti-Diabetic Meds N/A - Assessment & Plan ASSESSMENT: * See progress note from 08/12/20 for more background info, in short: * Pt receiving SQ basal bolus insulin regimen for hyperglycemia secondary to COVID-19 diagnosis and on steroids (dexamethasone 6 mg IV daily) * Patient is currently receiving an average of 53 units of insulin per day * 50 units of basal insulin * 3 units of prandial/correctional insulin * BSGs ranging 79 - 195 mg/dl over the past 24hrs * Changes needed to insulin regimen: * AM Fasting BSG = 99 mg/dl. This is in goal range for patient based on inpatient targets and co-morbidities. Patient's diet is extremely poor right now. Do not expect patient to require basal insulin at this point (based upon A1C). Lantus 25 units yesterday covered hyperglycemia from Solu-Medrol on 08/11/20. Expect to require some NPH on 08/14/20. * Post-prandial BSGs trended downwards due to no PO intake and steroids given. Continue weight-based stress of 3 Novolog in light of steroid use. * Total daily dose = ? units. Will be determined based upon patient's intake. PLAN FOR INPATIENT GLYCEMIC CONTROL: * HOLDING basal insulin for now * Continuing correction factor of 25 mg/dl/unit * Continuing carb ratio of 1 unit per 9 grams CHO consumed * Continuing goal range of Low 110 mg/dL - High 140 mg/dL * Please note that the plan above was derived based on current level of insulin resistance and hospital stress. These recommendations are appropriate for inpat ient admission only. Plan of care upon discharge will need to be reassessed to avoid potential outpatient hypo/hyperglycemia. Thank you.
--- NOTE | 2020-08-13 14:20 | Cardiology Consultation ---
Date of Consultation August 13, 2020 Assessment & Plan (1) Acute hypoxemic respiratory failure: (2) Sepsis: (3) COVID-19: (4) Pneumonia: (5) Acute on chronic systolic heart failure: 2/2 blood cultures obtained on 08/11/2020 are preliminarily positive for Staphylococcus. In addition to COVID-19 pneumonia, it is felt the patient likely has a bacterial pneumonia, and based on her past cardiology history, acute on chronic systolic heart failure is felt to be present as well. Portable chest x-ray suggest pneumonia, the cardiac silhouette is enlarged, and superimposed congestive heart failure also appears to be present. Her troponin is minimally elevated on serial measurements 0.060, 0.069, 0.069, 0.069 ng/ml, with flat elevation consistent with congestive heart failure as well as elevated proBNP. As noted prior records describe chronic left bundle branch block. Creatinine was 1.48 on admission and 1.39 today. Would continue current diuretic therapy, furosemide 40 mg IV twice daily. Continue IV dexamethasone, remdesivir, doxycycline, ceftriaxone. Continue prior to hospital treatment with aspirin, clopidogrel, and atorvastatin as per her chronic baseline. Continue metoprolol as tolerated, amlodipine. Agree with Lovenox for DVT prophylaxis. Given her known history of ischemic cardiomyopathy with ejection fraction in the range of 35 to 40% as noted in 2018, I do not think we need to repeat an echo in the acute setting at present, as her presentation does not seem to be suggestive of of a COVID-19 related myocarditis but rather acute compensation of chronic heart failure. Case discussed with Dr. Dahl. History of Present Illness Attending Physician: Triny Dahl MD History of Present Illness Sherine Long is an 89 year old female assessed in cardiology consultation per the request of Dr Dahl for congestive heart failure. The patient is currently admitted to the telemetry unit , room 232-1 having been transferred from [facility] [place]. She is on isolation for COVID-19 pneumonia and consultation is performed via chart review in an effort to limit exposure. Patient was first noted to be COVID-19 positive at [facility] on 08/02/20. She was admitted via the ED on 08/12/20 with worsening shortness of breath. Per my discussion with Dr. Dahl an pt's nurse today, the patient is oriented to her name, but otherwise confused. She has a history of dementia. Her oxygen saturations have been 94-97% this am on room air. The patient has not followed with [facility] cardiology in the past, but per review of her [facility] chart, a scanned cardiology note dated 06/24/[address] Marshall of cardiology in [place] with whom the patient has followed in the past. Note describes the patient having a history of chronic left bundle branch block, stroke in 1998, and coronary heart disease. The patient apparently had a non-ST segment elevation myocardial infarction in Jan, 2017 and underwent cardiac c atheterization at [facility] receiving a drug-eluting stent to the first obtuse marginal of the left circumflex coronary artery at that time on 01/25/2017. She has a history of a remote myocardial infarction in 2004 with RCA stenting at that time. Echocardiogram reportedly performed in October 2017 demonstrated moderate left ventricular systolic dysfunction with LVEF of 35 to 40%, mild mitral and tricuspid valve regurgitation noted at that time. Allergies Allergy/AdvReac Type Severity Reaction Status Date / Time tramadol Allergy Unknown ON WINDY Verified 08/12/20 02:58 GLEN ECHO MED LIST Home Medications Medication Instructions Recorded Confirmed Type acetaminophen [Tylenol] 650 mg PO Q4 PRN MDD 3 GRAM/24 01/15/20 08/12/20 History HOURS aspirin 81 mg PO DAILY 01/15/20 08/12/20 History atorvastatin 20 mg PO HS 01/15/20 08/12/20 History clopidogrel [Plavix] 75 mg PO DAILY 01/15/20 08/12/20 History famotidine 20 mg PO BID 01/15/20 08/12/20 History ferrous sulfate 325 mg PO DAILY 01/15/20 08/12/20 History isosorbide mononitrate 30 mg PO DAILY 01/15/20 08/12/20 History sennosides-docusate sodium 1 tab-cap PO BID 01/15/20 08/12/20 History [Senna-S] calcium carbonate [Tums E-X] 300 mg PO Q6 PRN 01/27/20 08/12/20 History nut.tx,imp.renal function,whey 1 ea PO DAILY 01/27/20 08/12/20 History [Renalcal (whey)] ondansetron HCl 4 mg PO Q6H PRN 01/27/20 08/12/20 History Lactobacillus acidoph-L.bulgar 1 tab PO BID17 08/12/20 08/12/20 History [Lactinex] acetaminophen [Tylenol Extra 500 mg PO TID MDD 3 GRAM/24 HOURS 08/12/20 08/12/20 History Strength] albuterol sulfate 2 puff INHALATION Q6H 08/12/20 08/12/20 History amlodipine 5 mg PO DAILY 08/12/20 08/12/20 History ascorbic acid (vitamin C) [Vitamin 500 mg PO DAILY 08/12/20 08/12/20 History C] azithromycin 250 mg PO DAILY 08/12/20 08/12/20 History cholecalciferol (vitamin D3) 25 mcg PO DAILY 08/12/20 08/12/20 History [Vitamin D3] clonidine HCl 0.1 mg PO AMHS 08/12/20 08/12/20 History dexamethasone 6 mg PO DAILY 08/12/20 08/12/20 History guaifenesin [Guiatuss] 200 mg PO Q4H PRN 08/12/20 08/12/20 History levothyroxine 125 mcg PO DAILYBB 08/12/20 08/12/20 History melatonin 1 mg PO HS 08/12/20 08/12/20 History methylprednisolone sod suc(PF) 40 mg IM ONCE 08/12/20 08/12/20 History metoprolol tartrate See Rx Instructions .ROUTE .COMPLEX 08/12/20 08/12/20 History risperidone 0.25 mg PO BID17 08/12/20 08/12/20 History spironolactone 25 mg PO Q OTHER DAY 08/12/20 08/12/20 History zinc sulfate 220 mg PO BID 08/12/20 08/12/20 History Patient History Medical History (Updated 08/13/20 @ 14:35 by Jj Nino DO) Anemia Hypertension Left bundle branch block (LBBB) Social History Smoking Status: Unknown if ever smoked Preferred Language: Singaporean Communication Ability: Unable Motor Rebuilder Required: No Beliefs That Will Affect Care: None Current Living Situation: Long Term Current Living Situation Comment: resident at [facility] Other Information That Helps Us Care for You: No Feels Safe at Home: Yes Safety Concerns: Feels Safe At This Time Assistive Devices: Walker Review of Systems Review of Systems: Not performed, chart review consultation. Patient with dementia/delirium. Physical Exam Physical Exam: Temp Pulse Resp BP Pulse Ox 37.0 C 87 32 H 149/71 H 94 08/13/20 11:43 08/13/20 12:22 08/13/20 11:43 08/13/20 11:43 08/13/20 11:43 No in person physical exam was performed Results & Data ([facility]) Vital Signs (Past 12 Hours) Vital Signs Temp Pulse Pulse Resp BP Pulse Ox 08/13/20 12:22 87 08/13/20 11:43 37.0 C 87 32 H 149/71 H 94 08/13/20 11:33 109 H 16 95 08/13/20 07:48 77 20 94 08/13/20 07:30 37.1 C 74 30 H 190/67 H 93 08/13/20 04:32 36.3 C L 81 30 H 194/82 H 94 Laboratory Results Cardiac Enzymes 08/13/20 08/13/20 Range/Units 06:21 06:21 AST 22 (15-37) U/L Lactate Dehydrogenase 391 H (84-246) U/L Troponin I 0.069 H* (0-0.045) ng/ml CBC 08/13/20 Range/Units 06:21 WBC 25.20 H (4.8-10.8) K/uL RBC 3.49 L (4.2-5.4) M/uL Hgb 10.5 L (12.0-16.0) g/dL Hct 30.1 L (37-47) % Plt Count 272 (130-400) K/uL Neut # (Auto) 23.26 H (1.4-6.5) K/uL Lymph # (Auto) 1.04 L (1.2-3.4) K/uL [place] # (Auto) 0.75 H (0.11-0.59) K/uL Eos # (Auto) 0.00 (0-0.5) K/uL Baso # (Auto) 0.02 (0-0.2) K/uL Comprehensive Metabolic Panel 08/13/20 Range/Units 06:21 Sodium 138 (136-145) mmol/L Potassium 3.1 L D (3.5-5.1) mmol/L Chloride 110 H (98-107) mmol/L Carbon Dioxide 22 (21-32) mmol/L BUN 48 H (7-18) mg/dl Creatinine 1.39 H (0.6-1.2) mg/dl Glucose 65 L (70-99) mg/dl Calcium 8.3 L (8.5-10.1) mg/dl Direct Bilirubin 0.4 H (0-0.2) mg/dl AST 22 (15-37) U/L ALT 25 (12-78) U/L Alkaline Phosphatase 101 (45-117) U/L Total Protein 6.5 (6.4-8.2) gm/dl Albumin 2.1 L (3.4-5.0) gm/dl Intake and Output 08/12/20 08/13/20 08/13/20 22:59 06:59 14:59 Intake Total 460 / 3845 215 / 3845 750 / 750 Output Total 1450 / 2200 550 / 2200 650 / 650 Balance -990 / 1645 -335 / 1645 100 / 100 Intake: IV 340 / 3525 115 / 3525 750 / 750 Vibramycin 100 mg In D5 100 ml 110 / 220 110 / 110 @ 50 mls/hr IV Q12H [facility] Rx#: [id number] Zosyn 3.375 gm In D5 100 ml @ 230 / 345 115 / 345 115 / 115 28.75 mls/hr IV Q8H [facility] Rx#: [id number] Remdesivir 100 mg In Nss 230 ml 250 / 250 @ 250 mls/hr IV Q24H [facility] Rx#: [id number] Vancomycin HCl 1,250 mg In Nss 275 / 275 250 ml @ 200 mls/hr IV TODAY@ 0830 [facility] Rx#:[id number] Oral 120 / 320 100 / 320 Output: Urine 650 / 650 Urine Amount (Catheter) 1450 / 2200 550 / 2200 [place]/Indwelling 1450 / 2200 550 / 2200 Other: Weight 60.2 kg Weight Measurement Method Built in [facility] Diagnostic Findings EKG performed 08/12/2020 at 2:53 AM reveals sinus rhythm at 93 bpm with left bundle branch block. (1) Sepsis Acute respiratory failure type: with hypoxia Sepsis acute organ dysfunction status: with acute organ dysfunction Sepsis type: sepsis due to unspecified organism Severe sepsis acute organ dysfunction type: acute respiratory failure Severe sepsis shock status: without septic shock Qualified Code(s): A41.9 - Sepsis, unspecified organism; R65.20 - Severe sepsis without septic shock; J96.01 - Acute respiratory failure with hypoxia (2) Pneumonia Laterality: right Lung location: lower lobe of lung Pneumonia type: due to unspecified organism Qualified Code(s): J18.9 - Pneumonia, unspecified organism
--- NOTE | 2020-08-13 15:57 | Pharmacy Report ---
Pharmacy Abx Dose Short Note - Date of Service August 13, 2020 - Assessment & Plan Assessment 89 year old F receiving vanc + Ceftriaxone + Doxy for treatment of bacteremia/PNA Day #2 of antimicrobial therapy. Plan Vancomycin * Random level this morning following one dose (16.4 mg/kg) of vancomycin = 6.8 mcg/mL (subtherapeutic) * Will "re-load" patient with Vancomycin 1250mg IV x1 (20 mg/kg) * Repeat random ordered ~12 hours after load. Subsequent dosing will be det ermined based upon this random level. Pharmacy will continue to follow and will adjust dose/frequency as necessary. Thank you.
[2020-08-13] MEDS: cefTRIAXone SODIUM 1,000 MG in DEXTROSE 5% 50 ML IV SCH (17:38)
--- NOTE | 2020-08-13 19:10 | Hospitalist Progress Note ---
Date of Service August 13, 2020 Assessment & Plan (1) Acute hypoxemic respiratory failure: Possible due to severe COVID-19 pneumonia and CHF exacerbation Positive COVID 19 Failed outpatient treatment CXR showed right lower lung zone airspace opacity suspicious for pneumonia. Possible small right pleural effusion Elevated inflammatory marker such as ESR 65, C reactive 33, Pro BNP 62189 anad procalcitonin 8.12 on admission LDH 391, CRP increased to 37 and procalcitonin 6.16 Received Remdesivir and Dexamethasone on admission pulmonology on board case discussed with Brand Inspector, No plasma convalescent since pt is volume overload Will continue Remdesivir and dexamethasone Continue oxygen supplement If breathing worsening, will consider to put on BIPAP Continue respiratory treatment with levalbuterol Will encourage nurse to encourage pt to prone Severe sepsis Possible related to COVID 19 and Pneumonia Met sepsis criteria with elevated WBC, RR, Lactate and procalcitonin on admission Received IV Zosyn and vanco in the ER Lactate normalized, but WBC increased to 25k (possible related to steroid) Rocephin and Doxycycline added received IVF, but will d/c due to CHF exacerbation Blood cx positive for staph Zosyn discontinued, will continue Vanco, Rocephin and doxycycline will consult ID Will repeat blood cx Acute on Chronic systolic CHF exacerbation [place] admission 56149 Will discontinue IVF since pt volume overload Continue Lasix 40mg IV BID Cardiology on board last Echo on 2017 showed ejection fraction in the range of 35 to 40%. No need to repeat an echo in the acute setting at present, as her presentation does not seem to be suggestive of of a COVID-19 related myocarditis but rather acute compensation of chronic heart failure as per cardiology Continue monitor I/O Will monitor BMP while on IV lasix case discussed with Dr. Nino Hypokalemia Mostly related to lasisx K 3.1 today K replaced Monitor BMP while on diuresis Elevated Troponin Due to demand ischemia due to acute hypoxia respiratory failure, sepsis and CHF, hypertensive Troponin 0.069, then 0.069x2 EKG showed LBBB, no acute ischemic changes Continue aspirin/plavix/statin/ metoprolol Continue monitor Hypertensive crisis BP on admission 224/99 Continue home BP med Continue IV hydralzine PRN Continue monitor BP Hypothyroidism TSH low Consider to decrease levothyroxine Dementia Confused as baseline DVT prophylaxis. Lovenox subq DNR as per prior directives as daughter/POA (Ms. Kenna Marcum, contact #[phone] 10/30 [phone]). Patient daughter counseled regarding potential adverse effects from Remdesivir therapy over the phone. Admission and Anticipated Discharge Date Admission Date: August 12, 2020 Subjective Pt was seen and examined Lying in bed with mild respiratory distress Pt said that her breathing is better continue to be confused Denies any chest pain, palpitation, dizziness and fever Physical Exam Physical Exam: General- acute respiratory distress Head- atraumatic Eyes- PERRL, EOMI, ENT- oropharynx clear Neck- supple, no JVD Lungs-B/L Crackle Heart- regular rhythm; no murmur Abdomen- normal bowel sounds, soft, nontender Extremities- no calf tenderness Neuro- awake and confused Skin- warm & dry Results & Data Results & Data ([facility]) Vital Signs (Past 12 Hours) Vital Signs Temp Pulse Pulse Resp BP Pulse Ox 08/13/20 16:05 36.7 C 90 20 165/74 H 95 08/13/20 12:22 87 08/13/20 11:43 37.0 C 87 32 H 149/71 H 94 08/13/20 11:33 109 H 16 95 08/13/20 07:48 77 20 94 08/13/20 07:30 37.1 C 74 30 H 190/67 H 93
--- NOTE | 2020-08-13 21:42 | Pharmacy Report ---
Pharmacy Abx Dose Short Note - Date of Service August 13, 2020 - Assessment & Plan Assessment 89 year old F receiving Vancomycin for treatment of bacteremia * Day #2 of antimicrobial therapy * Patient is also receiving Ceftriaxone, Doxycycline and Remdesivir for Covid-19 pneumonia with possibility of superimposed bacterial pneumonia * Leukocytosis worsened today. Renal function improved slightly. Afebrile x 24 hours. * MRSA nasal swab positive. Blood culture growing staph species. S. aureus and MRSA PCR from blood culture are both positive indicating a very high likelihood of MRSA bacteremia. * Random vancomycin level was 6.8 mcg/mL this AM so patient was given 1250 mg x 1 dose. Plan Vancomycin * Random level of 20.5 mcg/mL is therapeutic approximately 10 hours following vancomycin dose. * Will be aggressive with vancomycin dosing given likelihood of MRSA bacteremia. Patient specific kinetics estimate that trough will be 15 mcg/mL in approximately 5 hours. Therefore, will order vancomycin 1000 mg IV x 1 at midnight. * Goal trough/random level: ~20 mcg/mL * Random level ordered for tomorrow at 1200. Pharmacy will continue to follow and will adjust dose/frequency as necessary. Thank you.
[2020-08-13] MEDS: ENOXAPARIN INJ 30 MG/0.3 ML SYR SQ SCH (21:55)
[2020-08-13] MEDS: ATORVASTATIN 20 MG TAB PO SCH (21:58)
[2020-08-14] MEDS ORDERED: VANCOMYCIN HCL 1,000 MG in SODIUM CHLORIDE 0.9% 250 ML IV ONE
[2020-08-14] MEDS: LEVALBUTEROL TARTRATE 15 GM HFA.AER.AD INH PRN (03:13)
[2020-08-14 06:25] LABS: Hematocrit (blood only) 29.4 % (37-47); Hemoglobin 10.4 g/dL (12.0-16.0); Mean Corpuscular Hemoglobin 29.9 pg (25-34); Mean Corpuscular Hgb Conc 35.4 g/dL (32-36); Mean Corpuscular Volume 84.5 fL (80-100); Mean Platelet Volume 9.9 fL (7.4-10.4); Platelet Count 273 K/uL (130-400); RDW Coefficient of Variation 15.3 % (11.5-14.5); RDW Standard Deviation 47.1 fL (36.4-46.3); Red Blood Count 3.48 M/uL (4.2-5.4); White Blood Count 25.33 K/uL (4.8-10.8)
[2020-08-14] MEDS: LEVOTHYROXINE SODIUM 125 MCG TABLET PO SCH (06:41)
[2020-08-14 06:55] LABS: Albumin Level 1.9 gm/dl (3.4-5.0); BUN Creatinine Ratio 40.7 (10-20); Calcium 8.3 mg/dl (8.5-10.1); Creatinine Clr Calc Pharmacy 23.6 ml/min; Est GFR (African American) 36.3; Est GFR (Non-African American) 31.3; Potassium 3.3 mmol/L (3.5-5.1)
[2020-08-14 07:02] LABS: Albumin Globulin Ratio 0.4 (0.9-2); Bilirubin,Total 0.8 mg/dl (0.2-1); C Reactive Protein 24.5 mg/dl (0-0.29); Globulin 4.3 gm/dl (2.5-4.0); Total Protein 6.2 gm/dl (6.4-8.2)
[2020-08-14] MEDS ORDERED: INSULIN HUMAN NPH SC ONE (08:00)
[2020-08-14] MEDS: DOXYCYCLINE HYCLATE 100 MG in DEXTROSE 5% 100 ML IV SCH ×2 (08:06→21:33)
[2020-08-14] MEDS: REMDESIVIR 100mg: Days 2-5 IV SCH (08:07)
[2020-08-14] MEDS: FUROSEMIDE 40 MG in SYRINGE 0 ML IV SCH ×2 (08:08→17:04)
[2020-08-14] MEDS: DEXAMETHASONE SOD PHOSPHATE 6 MG in SYRINGE 0 ML IV SCH (08:08)
[2020-08-14] MEDS: FAMOTIDINE 20 MG TAB PO SCH ×2 (08:09→21:34)
[2020-08-14] MEDS: ISOSORBIDE MONO EXTENDED REL 30 MG TABCR PO SCH (08:09)
[2020-08-14] MEDS: risperiDONE 0.5 MG TABLET PO SCH ×2 (08:09→17:06)
[2020-08-14] MEDS: amLODIPine BESYLATE 5 MG TAB PO SCH (08:10)
[2020-08-14] MEDS: CLOPIDOGREL BISULFATE 75 MG TAB PO SCH (08:10)
[2020-08-14] MEDS: FERROUS SULFATE 325 MG TAB PO SCH (08:10)
[2020-08-14] MEDS: ASPIRIN 81 MG ECTAB PO SCH (08:11)
[2020-08-14] MEDS: guaiFENesin 600 MG TABCR PO SCH ×2 (08:11→21:36)
[2020-08-14] MEDS: METOPROLOL TARTRATE 100 MG TAB PO SCH ×2 (08:17→21:35)
[2020-08-14] MEDS: SODIUM CHLORIDE 0.9% 10ML FLUSH IV SCH (08:19)
[2020-08-14] MEDS ORDERED: POTASSIUM CHLORIDE CRTAB 20 MEQ TABCR PO STA (08:38)
[2020-08-14] MEDS: INSULIN ASPART 100 UNITS/ML 3 ML PEN SC SCH ×4 (08:48→21:56)
--- NOTE | 2020-08-14 08:48 | Pharmacy Report ---
Pharmacy Glycemic Short Note 2 - Date of Service August 14, 2020 - Glycemic Short BSG Results (Last 24 hours): 08/13/20 08/13/20 08/13/20 11:41 16:08 21:05 Glucose POC Glucose 103 H 116 H 139 H 08/14/20 08/14/20 05:50 07:56 Glucose 125 H POC Glucose 139 H OUTPATIENT ANTIDIABETIC REGIMEN: * HbA1c: 6.4% (08/12/20) * Patient takes no antidiabetic medications as an outpatient ASSESSMENT: * BM is an 89 year old female admitted on 08/12/20 with pneumonia secondary to COVID-19 * Patient is currently receiving broad-spectrum antibiotics, remdesivir, and IV dexamethasone 6 mg daily * BSGs well-controlled yesterday with bolus insulin only - 99, 103, 116, and 139 mg/dL * Received 5 units of Novolog * Fasting BSG of 139 mg/dL this morning - will initiate NPH 10 units (0.15 unit/kg) with IV dexamethasone this morning PLAN FOR INPATIENT GLYCEMIC CONTROL: * Basal insulin * NPH 10 units SC x 1 with IV dexamethasone 6 mg daily * Will reassess daily * Bolus insulin * NovoLog per scale ACHS or Q6hrs while NPO * Goal Range: Low 110 mg/dL - High 140 mg/dL * Correction Factor: 25 mg/dL/unit * Nutritional / Prandial insulin per carb ratio of 1 unit per 9 grams CHO consumed PLAN FOR DISCHARGE: * HbA1c of 6.4% as an outpatient * Insulin needs while inpatient most likely due to IV dexamethasone - do not anticipate any antidiabetic medication needs at discharge
[2020-08-14] MEDS: cloNIDine HCL 0.1 MG TAB PO SCH ×2 (10:57→22:02)
[2020-08-14] MEDS: DOCUSATE SODIUM/SENNA 50/8.6MG TAB PO SCH ×2 (10:58→21:40)
--- NOTE | 2020-08-14 14:57 | Pharmacy Report ---
Pharmacy Abx Dose Short Note - Date of Service August 14, 2020 - Assessment & Plan Assessment 89 year old F receiving vancomycin for MRSA bacteremia and possible pulmonary source. MRSA nasal swab was positive. Vancomycin dosing has been based on random levels and single doses until now. Given renal function has remained relatively stable, will attempt to schedule a dose. Will utilize a lower mg/kg dose but more frequent dosing. First scheduled dose will begin 6 hours after last random level and 18 hours after last one time dose. Will re-evaluate daily if renal function significantly changes. Day # 3 of antimicrobial therapy. Plan Vancomycin * Prior doses and times: 1000mg IV X 1 08/12@0500, 1250mg IV X 1 08/13@0940, 1000mg IV X1 08/14@0000 * Random level is 23.3 mcg/mL @ 1200 * Initiate scheduled dose of 750 mg IV every 24 hours @ 1800 * Goal trough level : 15 to 20 mcg/mL * Trough or random level ordered for: 08/16/20 @1730 Pharmacy will continue to follow and will adjust dose/frequency as necessary. Thank you.
[2020-08-14] MEDS: cefTRIAXone SODIUM 1,000 MG in DEXTROSE 5% 50 ML IV SCH (16:59)
--- NOTE | 2020-08-14 17:49 | Hospitalist Progress Note ---
Date of Service August 14, 2020 Assessment & Plan (1) Acute hypoxemic respiratory failure: Possible due to severe COVID-19 pneumonia and CHF exacerbation Positive COVID 19 Failed outpatient treatment CXR showed right lower lung zone airspace opacity suspicious for pneumonia. Possible small right pleural effusion Elevated inflammatory marker such as ESR 65, C reactive 33, Pro BNP 51561 anad procalcitonin 8.12 on admission LDH 391, CRP increased to 37 and procalcitonin 6.16 Received Remdesivir and Dexamethasone on admission pulmonology on board case discussed with Diesel Automotive Technician, No plasma convalescent since pt is volume overload Will continue Remdesivir and dexamethasone Continue oxygen supplement If breathing worsening, will consider to put on BIPAP Continue respiratory treatment with levalbuterol Due to dementia, will encourage nurse to prone pt Severe sepsis Possible related to COVID 19 and Pneumonia Met sepsis criteria with elevated WBC, RR, Lactate and procalcitonin on admission Received IV Zosyn and vanco in the ER Lactate normalized, but WBC increased to 25k (possible related to steroid) Rocephin and Doxycycline added received IVF, but will d/c due to CHF exacerbation Blood cx positive for MRSA Zosyn discontinued, will continue Vanco, Rocephin and doxycycline Repeat blood on 08/13 positive for gram positive cocci ECHO was ordered, but was cancelled Will reorder ECHO to r/o any vegetation since will be unable to get CAMILA due to positive COVID ID [facility] consulted waiting for input Will repeat blood cx for 3rd time Bacteremia Blood cx grew gram positive cocci (MRSA) Repeat blood cx on 08/13 positive for gram positive cocci Continue IV vanco and doxy ID [facility] consulted - waiting for input Will get ECHO to r/o any Vegetation Will repeat blood cx for 3rd time Acute on Chronic systolic CHF exacerbation [place] admission 179[address] Will discontinue IVF since pt volume overload Continue Lasix 40mg IV BID Cardiology on board Last Echo on 2017 showed ejection fraction in the range of 35 to 40%. No need to repeat an echo in the acute setting at present, as her presentation does not seem to be suggestive of of a COVID-19 related myocarditis but rather acute compensation of chronic heart failure as per cardiology Continue monitor I/O Continue IV Lasix Will monitor BMP while on IV lasix Stable Hypokalemia Mostly related to lasisx K 3.3 today K replaced Monitor BMP while on diuresis Elevated Troponin Due to demand ischemia due to acute hypoxia respiratory failure, sepsis and CHF, hypertensive Troponin 0.069, then 0.069x2 EKG showed LBBB, no acute ischemic changes Continue aspirin/plavix/statin/ metoprolol Continue monitor Hypertensive crisis BP on admission 224/99 Continue home BP med, BP improves Continue IV hydralazine PRN Continue monitor BP Hypothyroidism TSH low Consider to decrease levothyroxine Dementia Confused as baseline DVT prophylaxis. Lovenox subq DNR as per prior directives as daughter/POA (Ms. Kenna Marcum, contact #[phone] 10/30 [phone]). Patient daughter counseled regarding potential adverse effects from Remdesivir therapy over the phone. Admission and Anticipated Discharge Date Admission Date: August 12, 2020 Subjective Pt was seen and examined Lying in bed with mild respiratory distress Pt said that her breathing feels a little better She continues to cough Her blood cx continue to grow gram positive cocci Denies any chest pain Physical Exam Physical Exam: General- acute respiratory distress Head- atraumatic Eyes- PERRL, EOMI, ENT- oropharynx clear Neck- supple, no JVD Lungs-B/L Crackle Heart- regular rhythm; no murmur Abdomen- normal bowel sounds, soft, nontender Extremities- no calf tenderness Neuro- awake and confused Skin- warm & dry Results & Data Results & Data ([facility]) Vital Signs (Past 12 Hours) Vital Signs Temp Pulse Pulse Resp BP BP Pulse Ox 08/14/20 16:00 36.8 C 66 18 155/73 H 96 08/14/20 15:44 74 08/14/20 11:27 36.8 C 77 16 137/73 96 08/14/20 10:46 78 08/14/20 08:00 36.7 C 94 H 28 H 157/67 H 94 08/14/20 06:42 78 24 96
[2020-08-14] MEDS: VANCOMYCIN HCL 750 MG in SODIUM CHLORIDE 0.9% 250 ML IV SCH (17:53)
[2020-08-14] MEDS: ENOXAPARIN INJ 30 MG/0.3 ML SYR SQ SCH (21:33)
[2020-08-14] MEDS: ATORVASTATIN 20 MG TAB PO SCH (21:36)
[2020-08-15] MEDS: hydrALAZINE HCL 20 MG/ML VIAL IV PRN (04:34)
[2020-08-15] MEDS: LEVOTHYROXINE SODIUM 125 MCG TABLET PO SCH (04:35)
[2020-08-15 06:14] LABS: Hematocrit (blood only) 30.6 % (37-47); Hemoglobin 10.5 g/dL (12.0-16.0); Mean Corpuscular Hemoglobin 29.5 pg (25-34); Mean Corpuscular Hgb Conc 34.3 g/dL (32-36); Mean Platelet Volume 9.8 fL (7.4-10.4); Platelet Count 304 K/uL (130-400); RDW Coefficient of Variation 15.5 % (11.5-14.5); RDW Standard Deviation 49.2 fL (36.4-46.3); Red Blood Count 3.56 M/uL (4.2-5.4); White Blood Count 15.66 K/uL (4.8-10.8)
[2020-08-15 06:49] LABS: BUN Creatinine Ratio 44.8 (10-20); Calcium 8.3 mg/dl (8.5-10.1); Creatinine Clr Calc Pharmacy 20.8 ml/min; Est GFR (African American) 34.3; Est GFR (Non-African American) 29.6; Potassium 3.2 mmol/L (3.5-5.1)
[2020-08-15 06:51] LABS: Albumin Globulin Ratio 0.5 (0.9-2); Bilirubin,Total 0.8 mg/dl (0.2-1); Globulin 4.4 gm/dl (2.5-4.0); Total Protein 6.4 gm/dl (6.4-8.2)
[2020-08-15] MEDS: DEXAMETHASONE SOD PHOSPHATE 6 MG in SYRINGE 0 ML IV SCH (07:57)
[2020-08-15] MEDS: FUROSEMIDE 40 MG in SYRINGE 0 ML IV SCH ×2 (07:57→17:21)
[2020-08-15] MEDS: REMDESIVIR 100mg: Days 2-5 IV SCH (07:57)
[2020-08-15] MEDS: FAMOTIDINE 20 MG TAB PO SCH ×2 (07:58→20:26)
[2020-08-15] MEDS: METOPROLOL TARTRATE 100 MG TAB PO SCH ×2 (07:59→20:26)
[2020-08-15] MEDS: CLOPIDOGREL BISULFATE 75 MG TAB PO SCH (07:59)
[2020-08-15] MEDS: risperiDONE 0.5 MG TABLET PO SCH ×2 (07:59→15:30)
[2020-08-15] MEDS: FERROUS SULFATE 325 MG TAB PO SCH (07:59)
[2020-08-15] MEDS: amLODIPine BESYLATE 5 MG TAB PO SCH (07:59)
[2020-08-15] MEDS: guaiFENesin 600 MG TABCR PO SCH ×2 (07:59→20:28)
[2020-08-15] MEDS: ISOSORBIDE MONO EXTENDED REL 30 MG TABCR PO SCH (07:59)
[2020-08-15] MEDS ORDERED: INSULIN HUMAN NPH SC SCH (08:00)
[2020-08-15] MEDS: ASPIRIN 81 MG ECTAB PO SCH (08:00)
[2020-08-15] MEDS ORDERED: POTASSIUM CHLORIDE CRTAB 20 MEQ TABCR PO STA ×2 (08:10→08:41)
[2020-08-15] MEDS: INSULIN ASPART 100 UNITS/ML 3 ML PEN SC SCH ×4 (09:27→21:20)
[2020-08-15] MEDS: DOXYCYCLINE HYCLATE 100 MG in DEXTROSE 5% 100 ML IV SCH ×2 (09:58→20:30)
[2020-08-15] MEDS: cloNIDine HCL 0.1 MG TAB PO SCH ×2 (09:59→21:15)
[2020-08-15] MEDS: DOCUSATE SODIUM/SENNA 50/8.6MG TAB PO SCH ×2 (09:59→21:15)
[2020-08-15] MEDS: SODIUM CHLORIDE 0.9% 10ML FLUSH IV SCH (10:15)
--- NOTE | 2020-08-15 10:40 | Pharmacy Report ---
Pharmacy Glycemic Short Note 2 - Date of Service August 15, 2020 - Glycemic Short BSG Results (Last 24 hours): 08/14/20 08/14/20 08/14/20 11:26 15:59 20:27 Glucose POC Glucose 173 H 128 H 131 H 08/15/20 08/15/20 05:37 07:36 Glucose 98 POC Glucose 114 H OUTPATIENT ANTIDIABETIC REGIMEN: * HbA1c: 6.4% (08/12/20) * Patient takes no antidiabetic medications as an outpatient ASSESSMENT: * DEMETRICE is an 89 year old female admitted on 08/12/20 with pneumonia secondary to COVID-19 * Patient is currently receiving broad-spectrum antibiotics, remdesivir, and IV dexamethasone 6 mg daily * BSGs reasonably well-controlled this admission, 139, 173, 128, and 131 mg/dL yesterday * Received 2 units of Novolog + 10 units of NPH given with IV dexamethasone * Fasting BSG of 114 mg/dL this morning PLAN FOR INPATIENT GLYCEMIC CONTROL: * Basal insulin - slightly decrease * NPH 8 units SC x 1 with IV dexamethasone 6 mg daily * Will reassess daily * Bolus insulin - continue * NovoLog per scale ACHS or Q6hrs while NPO * Goal Range: Low 110 mg/dL - High 140 mg/dL * Correction Factor: 25 mg/dL/unit * Nutritional / Prandial insulin per carb ratio of 1 unit per 9 grams CHO consumed PLAN FOR DISCHARGE: * HbA1c of 6.4% as an outpatient * Insulin needs while inpatient most likely due to IV dexamethasone - do not anticipate any antidiabetic medication needs at discharge
[2020-08-15] MEDS: cefTRIAXone SODIUM 1,000 MG in DEXTROSE 5% 50 ML IV SCH (15:31)
[2020-08-15] MEDS: VANCOMYCIN HCL 750 MG in SODIUM CHLORIDE 0.9% 250 ML IV SCH (17:28)
[2020-08-15] MEDS ORDERED: VANCOMYCIN TROUGH ONE (17:30)
--- NOTE | 2020-08-15 20:04 | Hospitalist Progress Note ---
Date of Service August 15, 2020 Assessment & Plan (1) Acute hypoxemic respiratory failure: Possible due to severe COVID-19 pneumonia and CHF exacerbation Positive COVID 19 Failed outpatient treatment CXR showed right lower lung zone airspace opacity suspicious for pneumonia. Possible small right pleural effusion Elevated inflammatory marker such as ESR 65, C reactive 33, Pro BNP 30000 anad procalcitonin 8.12 on admission LDH 391, CRP increased to 37 and procalcitonin 6.16 Received Remdesivir and Dexamethasone on admission pulmonology on board case discussed with Senior Brand Manager, No plasma convalescent since pt is volume overload Will continue Remdesivir and dexamethasone Continue oxygen supplement If breathing worsening, will consider to put on BIPAP Continue respiratory treatment with levalbuterol Due to dementia, will encourage nurse to prone pt Severe sepsis Possible related to COVID 19 and Pneumonia Met sepsis criteria with elevated WBC, RR, Lactate and procalcitonin on admission Received IV Zosyn and vanco in the ER Lactate normalized, but WBC increased to 25k (possible related to steroid) Rocephin and Doxycycline added received IVF, but will d/c due to CHF exacerbation Blood cx positive for MRSA Zosyn discontinued, will continue Vanco, Rocephin and doxycycline Repeat blood on 08/13 positive for gram positive cocci ECHO to r/o any vegetation since will be unable to get CAMILA due to positive COVID ECHO showed no vegetation ID [facility] consulted waiting for input Will repeat blood cx for 3rd time Bacteremia Blood cx grew gram positive cocci (MRSA) Repeat blood cx on 08/13 positive for gram positive cocci Continue IV vanco and doxy ID [facility] consulted - waiting for input ECHO showed no vegetation Follow up blood cx collected on 08/14 Acute on Chronic systolic [place] [id number] Will discontinue IVF since pt volume overload Continue Lasix 40mg IV BID Cardiology on board Last Echo on 2017 showed ejection fraction 35 to 40% Continue monitor I/O Continue IV Lasix Will monitor BMP while on IV lasix Stable Hypokalemia Mostly related to lasisx K 3.2 today K replaced Monitor BMP while on diuresis Elevated Troponin Due to demand ischemia due to acute hypoxia respiratory failure, sepsis and CHF, hypertensive Troponin 0.069, then 0.069x2 EKG showed LBBB, no acute ischemic changes Continue aspirin/plavix/statin/ metoprolol Continue monitor Hypertensive crisis BP on admission 224/99 Continue home BP med, BP improves Continue IV hydralazine PRN Continue monitor BP Hypothyroidism TSH low Consider to decrease levothyroxine Dementia Confused as baseline DVT prophylaxis. Lovenox subq DNR as per prior directives as daughter/POA (Ms. Kenna Marcum, contact #[phone]). Patient daughter counseled regarding potential adverse effects from Remdesivir therapy over the phone. Admission and Anticipated Discharge Date Admission Date: August 12, 2020 Subjective Pt was seen and examined Lying in bed with no distress Pt is feeling much better Her breathing is much better Spoke to daughter an provided with update Denies any chest pain, palpitation, dizziness and fever Physical Exam Physical Exam: General- acute respiratory distress Head- atraumatic Eyes- PERRL, EOMI, ENT- oropharynx clear Neck- supple, no JVD Lungs-B/L Crackle Heart- regular rhythm; no murmur Abdomen- normal bowel sounds, soft, nontender Extremities- no calf tenderness Neuro- awake and confused Skin- warm & dry Results & Data Results & Data ([facility]) Vital Signs (Past 12 Hours) Vital Signs Temp Pulse Resp BP BP Pulse Ox 08/15/20 17:29 96 08/15/20 15:28 36.5 C 66 20 147/80 H 95 08/15/20 11:58 36.7 C 68 18 119/65 95
[2020-08-15] MEDS: ATORVASTATIN 20 MG TAB PO SCH (20:27)
[2020-08-15] MEDS: ENOXAPARIN INJ 30 MG/0.3 ML SYR SQ SCH (20:29)
[2020-08-16 06:16] LABS: Hematocrit (blood only) 31.4 % (37-47); Hemoglobin 10.7 g/dL (12.0-16.0); Mean Corpuscular Hemoglobin 29.3 pg (25-34); Mean Corpuscular Hgb Conc 34.1 g/dL (32-36); Mean Platelet Volume 9.6 fL (7.4-10.4); Platelet Count 318 K/uL (130-400); RDW Coefficient of Variation 15.6 % (11.5-14.5); RDW Standard Deviation 49.3 fL (36.4-46.3); Red Blood Count 3.65 M/uL (4.2-5.4); White Blood Count 15.03 K/uL (4.8-10.8)
[2020-08-16 06:58] LABS: Albumin Globulin Ratio 0.5 (0.9-2); Albumin Level 2.3 gm/dl (3.4-5.0); BUN Creatinine Ratio 51.5 (10-20); Bilirubin,Total 0.6 mg/dl (0.2-1); C Reactive Protein 11.8 mg/dl (0-0.29); Calcium 8.6 mg/dl (8.5-10.1); Creatinine Clr Calc Pharmacy 20.1 ml/min; Est GFR (Non-African American) 28.5; Globulin 4.5 gm/dl (2.5-4.0); Potassium 3.7 mmol/L (3.5-5.1); Total Protein 6.8 gm/dl (6.4-8.2)
[2020-08-16] MEDS ORDERED: INSULIN HUMAN NPH SC SCH (08:00)
[2020-08-16] MEDS: FAMOTIDINE 20 MG TAB PO SCH (08:38)
[2020-08-16] MEDS: cloNIDine HCL 0.1 MG TAB PO SCH (08:38)
[2020-08-16] MEDS: guaiFENesin 600 MG TABCR PO SCH (08:38)
[2020-08-16] MEDS: LEVOTHYROXINE SODIUM 125 MCG TABLET PO SCH (08:39)
[2020-08-16] MEDS: METOPROLOL TARTRATE 100 MG TAB PO SCH (08:39)
[2020-08-16] MEDS: risperiDONE 0.5 MG TABLET PO SCH ×2 (08:40→15:37)
[2020-08-16] MEDS: ISOSORBIDE MONO EXTENDED REL 30 MG TABCR PO SCH (08:41)
[2020-08-16] MEDS: ASPIRIN 81 MG ECTAB PO SCH (08:42)
[2020-08-16] MEDS: FERROUS SULFATE 325 MG TAB PO SCH (08:42)
[2020-08-16] MEDS: CLOPIDOGREL BISULFATE 75 MG TAB PO SCH (08:42)
[2020-08-16] MEDS: amLODIPine BESYLATE 5 MG TAB PO SCH (08:43)
[2020-08-16] MEDS: DOCUSATE SODIUM/SENNA 50/8.6MG TAB PO SCH (08:43)
--- NOTE | 2020-08-16 08:55 | Pharmacy Report ---
Pharmacy Glycemic Short Note 2 - Date of Service August 16, 2020 - Glycemic Short BSG Results (Last 24 hours): 08/15/20 08/15/20 08/15/20 11:05 16:58 20:46 Glucose POC Glucose 150 H 209 H 162 H 08/16/20 08/16/20 05:36 08:31 Glucose 120 H POC Glucose 130 H OUTPATIENT ANTIDIABETIC REGIMEN: * HbA1c: 6.4% (08/12/20) * Patient takes no antidiabetic medications as an outpatient ASSESSMENT: * BM is an 89 year old female admitted on 08/12/20 with pneumonia secondary to COVID-19 * Patient is currently receiving broad-spectrum antibiotics, remdesivir, and IV dexamethasone 6 mg daily * BSGs yesterday, 114, 150, 209, and 162 mg/dL * Received 7 units of Novolog + 8 units of NPH given with IV dexamethasone * Will increase NPH back to 10 units SC daily with IV dexamethasone * Fasting BSG of 130 mg/dL this morning PLAN FOR INPATIENT GLYCEMIC CONTROL: * Basal insulin - increase * NPH 10 units SC daily with IV dexamethasone 6 mg daily * Will reassess daily * Bolus insulin - tighten carb ratio * NovoLog per scale ACHS or Q6hrs while NPO * Goal Range: Low 110 mg/dL - High 140 mg/dL * Correction Factor: 25 mg/dL/unit * Nutritional / Prandial insulin per carb ratio of 1 unit per 7 grams CHO consumed PLAN FOR DISCHARGE: * HbA1c of 6.4% as an outpatient * Insulin needs while inpatient most likely due to IV dexamethasone - do not anticipate any antidiabetic medication needs at discharge
[2020-08-16] MEDS: INSULIN ASPART 100 UNITS/ML 3 ML PEN SC SCH ×2 (08:59→13:38)
[2020-08-16] MEDS: DEXAMETHASONE SOD PHOSPHATE 6 MG in SYRINGE 0 ML IV SCH (10:17)
[2020-08-16] MEDS: REMDESIVIR 100mg: Days 2-5 IV SCH (10:17)
[2020-08-16] MEDS: DOXYCYCLINE HYCLATE 100 MG in DEXTROSE 5% 100 ML IV SCH (10:18)
[2020-08-16] MEDS: FUROSEMIDE 40 MG in SYRINGE 0 ML IV SCH (10:19)
[2020-08-16] MEDS: SODIUM CHLORIDE 0.9% 10ML FLUSH IV SCH (12:00)
[2020-08-16] MEDS: LEVALBUTEROL TARTRATE 15 GM HFA.AER.AD INH PRN (12:35)
[2020-08-16] MEDS ORDERED: MoRPHine SULFATE 2 MG/ML CARP IV STA ×2 (12:37→13:00)
[2020-08-16] MEDS ORDERED: MoRPHine SULFATE 2 MG/ML CARP ONE ×2 (12:43→12:52)
--- NOTE | 2020-08-16 12:44 | Communication Note ---
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 -as pt is desaturating while on High flow 02 45 L/hr given underlying co morbidities ,extremely poor prognosis /hospice-comfort care would be appropriate called pt's daughter on phone , explained pt;s current status -daughter is ok for comfort care pt given 2 mg IV morphine for air hunger , started on IV morphine gtt goal of care transitioned to Comfort care only pt is DNR /DNI plan of care explained to Daughter and grand daughters family was able to see pt via Zoom /i pad , daughter requests pt to be comfortable only aware that she may soon family was allowed to see pt on zoom during her last moments Zakiya Pacheco MD
[2020-08-16] MEDS ORDERED: MoRPHine SULF/NSS 250 MG/250 ML BTL IV SCH (13:00)
[2020-08-16] MEDS ORDERED: ONDANSETRON INJ 2 MG/ML 2 ML VIAL IV PRN (13:05)
[2020-08-16] MEDS ORDERED: ATROPINE SULFATE 1% OP SOLN 2 ML BTL SL PRN (13:05)
[2020-08-16] MEDS ORDERED: LORazepam 0.5 MG TAB PO PRN (13:05)
[2020-08-16] MEDS ORDERED: ONDANSETRON 4 MG OD TAB SL PRN (13:05)
[2020-08-16] MEDS ORDERED: LORazepam 2 MG/4 ML VIAL ONE (13:06)
[2020-08-16] MEDS ORDERED: LORazepam 1 MG/2 ML VIAL IV PRN (13:07)
--- NOTE | 2020-08-16 13:16 | Pharmacy Report ---
Pharmacy Abx Dose Short Note - Date of Service August 16, 2020 - Assessment & Plan Assessment * 89 year old F receiving VANCOMYCIN for treatment of MRSA bacteremia, likely from PNA * Day # 5 of VANCOMYCIN therapy. * Patient is also receiving Ceftriaxone + Doxycycline * Renal fxn continues to worsen: SCr 1.39 -->1.48 -->1.55 --> 1.6 * BLCXs from 08/12 and 08/13 growing MRSA (vanco DOT 1), 08/14 BLCXs no growth to date * Nasal swab + MRSA Plan Vancomycin * Last evening's trough was elevated (level = 25); pt did receive a full dose of 750mg last evening. Level @0828 this AM 28.7. * Q 24 hr dosing interval likely too short for this patient. * Will place vancomycin on hold and check random vancomycin level tomorrow AM. If vancomycin half-life > 24hrs, AM level tomorrow should be close to 15- 20mcg/mL range * Plan to redose when level 15-20mcg/mL Pharmacy will continue to follow and will adjust dose/frequency as necessary. Thank you.
[2020-08-16] MEDS: cefTRIAXone SODIUM 1,000 MG in DEXTROSE 5% 50 ML IV SCH (15:37)
[2020-08-16] MEDS ORDERED: VANCOMYCIN TROUGH ONE (17:30)
--- NOTE | 2020-08-16 21:19 | Hospitalist Progress Note ---
Date of Service August 16, 2020 Assessment & Plan (1) Acute hypoxemic respiratory failure: developed severe respiratory failure this am , transitioned to high flow 02 on 45 L spo2 remains in low 70's pt is DNR/DNI hypoxemic resp failure due to severe COVID-19 pneumonia and CHF exacerbation Received Remdesivir and Dexamethasone on admission pulmonology on board case discussed with Whizzer Operator, pt is now end stage respiratory failure recommends palliative care discussed with Pt's Daughter -changed to comfort care only Severe sepsis related to COVID 19 and Pneumonia Met sepsis criteria with elevated WBC, RR, Lactate and procalcitonin on admission worsening of hypoxia , resp failure on comfort care at present Bacteremia Blood cx grew gram positive cocci (MRSA) was treated with broad spectrum Abx on comfort care now for end stage resp failure Acute on Chronic systolic CHF exacerbation [place]BNP on admission [id number] worsening of hypoxia with COVID 19 pneumonia .sepsis very poor prognosis on comfort care now DNR as per prior directives as daughter/POA (Ms. Pierson Jossue, contact #[phone]). pt's Edin Pierson agreeable for comfort care on IV morphine gtt for resp distress , air hunger prognosis remains grim , Admission and Anticipated Discharge Date Admission Date: August 12, 2020 Subjective developed severe respiratory distress, cyanotic hypoxia while on High flow 02 goal of care transitioned to comfort care after d/w Daughter and granddaughters pt started on Iv morphine gtt , titrate to comfort Review of Systems Review of Systems: Unobtainable due to reduced consciousness Physical Exam Constitutional: + acute distress (due to hypoxia , resp failure ) and + ill appearing Eyes: + anicteric sclerae Respiratory: + respiratory distress, + labored breathing, + uses accessory muscles, + tachypneic and + audible wheezes Cardiovascular: Rate/Rhythm: + tachycardic Gastrointestinal (Abdomen): Percussion/Palpation: abdomen soft Neurologic: obtunded Results & Data Results & Data ([facility]) Vital Signs (Past 12 Hours) Vital Signs Temp Pulse Pulse Resp BP Pulse Ox 08/16/20 18:35 57 L 12 08/16/20 18:17 67 08/16/20 12:35 63 30 H 74 L 08/16/20 12:10 62 30 H 80 L 08/16/20 11:40 36.5 C 78 18 163/77 H 96 08/16/20 10:50 20 98 08/16/20 10:45 72 32 H 78 L 08/16/20 10:30 35 H 71 L 08/16/20 09:33 76
--- NOTE | 2020-08-17 00:17 | Death Pronouncement Note ---
Date of Service August 16, 2020 Pronouncement Note Admission Date Admission Date: August 12, 2020 Date and Time of Date of : 08/16/20 Time of : 23:08 Contributing Factors (1) Acute hypoxemic respiratory failure: Additional Data Confirmation of : no pulse, no respirations, no heart sounds and pupils fixed and dilated Family: contacted Attending physician: Zakiya Pacheco MD Was code activated?: No Autopsy requested?: No medical examiner notified?: No
--- NOTE | 2020-08-17 21:17 | Discharge Summary ---
Date of Service August 17, 2020 Admission HPI Per Admitting Provider History obtained from patient, ER provider, patient family, and records. Limited history from patient secondary to dementia, hearing impairment. Medical history significant for chronic diastolic HF as per records, CAD status post stent , chronic LBBB, history CVA as per records, HTN, CRI (baseline creatinine 1.2), chronic anemia (baseline hemoglobin 10), dementia, hypothyroidism, hx parotid tumor Last confinement January 2020 for metabolic encephalopathy secondary to complicated UTI. Few days history of cough symptoms, shortness of breath, lethargy, fever. Patient noted to be COVID-19 positive. Outpatient chest x-ray yesterday showed right lower lobe pneumonia. Dexamethasone and azithromycin started yesterday. Worsening respiratory distress, hypoxemia noted overnight at [facility]. At the ER, patient received vancomycin and Zosyn for sepsis. Initial SBP noted to be 220s. IV labetalol given at the ER. Medical History as above Surgical History : Appendectomy, cholecystectomy, Family History : Could not be obtained Personal/Social history : care home resident Principal Diagnosis Patient cause of Severe sepsis related to COVID 19 and Pneumonia hypoxemic resp failure due to severe COVID-19 pneumonia and CHF exacerbation Bacteremia /Blood cx gram positive cocci (MRSA) Acute on Chronic systolic CHF exacerbation Discharge Exam Patient while in comfort care please refer to note Discharge Data Allergies Allergy/AdvReac Type Severity Reaction Status Date / Time tramadol Allergy Unknown ON [facility] Verified 08/12/20 02:58 [facility] L[facility] Consultations 08/13/20 07:55 Consult Infectious Diseases Routine 08/13/20 08:49 Consult Cardiology Routine Hospital Course (1) Acute hypoxemic respiratory failure: pt while on comfort care ,Iv morphine gtt cause of Severe sepsis related to COVID 19 and Pneumonia hypoxemic resp failure due to severe COVID-19 pneumonia and CHF exacerbation Bacteremia /Blood cx gram positive cocci (MRSA) Acute on Chronic systolic CHF exacerbation Total Time Total Time Spent Total Time Spent (In Minutes): pt Discharge Plan Discharge Items Patient Disposition: Discharge Diagnosis: covid pneumonia, Sepsis, Bacteremia with MRSA, Acute on chronic systolic chf Addtl Attending Provider Instructions: Dank .
== END 2020-08-17 01:45 | disposition expired | DRG 871 ==
LOC: ED 02:09 → SUATTDRO 06:26 → 2S 06:26